=== PATIENT | female | born 1975 | race African-American/Black ===

== ENCOUNTER 2020-01-29 08:12 | Outpatient (CLI) | payer OTHER ==
--- NOTE | 2020-01-29 11:47 | NM ---
NUCLEAR MEDICINE PARATHYROID SCAN: HISTORY: Hyperparathyroidism. COMPARISON: None. TECHNIQUE: Patient was administered 23.7 mCi of technetium 99m sestamibi intravenously. SPECT and planar imaging is performed. FINDINGS: Appropriate distribution of the radiotracer. On the immediate and 1 hour images there is uptake noted in the salivary glands, paranasal sinuses and thyroid bed. On the 2 hour images, there is no significant radiotracer retention to suggest a parathyroid adenoma in the thyroid bed. IMPRESSION: No scintigraphic evidence of parathyroid adenoma. Transcribed Date/Time: 01/29/2020 12:14 PM
== END 2020-01-29 08:13 | disposition home or self-care (01) ==
LOC: NM 08:12
PROVIDERS: ATTEND Otolaryngology Plastic Surgery within the Head & Neck
DX: E21.3 Hyperparathyroidism, unspecified (principal)
CPT/HCPCS: 78072; A9500

== ENCOUNTER 2020-02-14 05:10 | Inpatient (IN) | payer OTHER ==
[2020-02-14] MEDS ORDERED: Lidocaine 1% w/Epinephrine 1:100K 20 ML VIAL ONE (06:32)
[2020-02-14 06:59] LABS: BHCG - Serum Negative (NEGATIVE); Pregs Control Background? CLEAR/WHITE (CLR/WHITE); Pregs Control Bar Appear? YES (CONTROL BAR)
[2020-02-14] MEDS ORDERED: Lidocaine 4% Topical Sol 50 ML BOT ONE (07:02)
[2020-02-14] MEDS ORDERED: Dexmedetomidine 200 MCG/2 ML VIAL ONE (07:02)
[2020-02-14] MEDS ORDERED: Fentanyl 100 MCG/2 ML VIAL ONE ×2 (07:02→09:57)
[2020-02-14 07:37] LABS: #Basophils 0.1 thou/uL (0.0-0.2); #Eosinphils 0.9 thou/uL (0.0-0.7); #Lymphocytes 3.2 thou/uL (1.20-3.40); #Monocytes 0.7 thou/uL (0.11-0.59); #Neutrophils 5.7 thou/uL (1.40-6.50); %Basophils 1.3 % (0.0-1.0); %Eosinophils 8.1 % (0.0-10.0); %Lymphocytes 30.1 % (21.0-51.0); %Monocytes 6.6 % (0.0-10.0); %Neutrophils 53.8 % (42.0-75.0); Hemoglobin 10.1 g/dL (12.0-16.0); Mean Corpuscular HGB CONC 32.1 g/dL (32.0-36.0); Mean Corpuscular Hemoglobin 30.7 pg (27.0-31.0); Mean Corpuscular Volume 95.9 fL (78.0-98.0); Mean Platelet Volume 6.8 fL (7.4-10.4); Platelet Count 417 thou/uL (130-400); RBC Distribution Width 14.6 % (11.5-14.5); Red Blood Cell (RBC) Count 3.27 mill/uL (4.20-5.40); White Blood Cell (WBC) Count 10.6 thou/uL (4.8-10.8)
[2020-02-14 07:45] LABS: Anion Gap 21 mmol/L (10-20); BUN (Urea Nitrogen) 58 mg/dL (7.0-18.7); Calc. Creatinine Clearance 8 mL/min (70-130); Calcium 8.6 mg/dL (7.8-10.44); Carbon Dioxide 24 mmol/L (22-29); Chloride 98 mmol/L (98-107); Estimated GFR-MDRD 5; Glucose 88 mg/dL (70-105); Potassium 4.6 mmol/L (3.5-5.1); Sodium 138 mmol/L (136-145)
[2020-02-14] MEDS ORDERED: SUGAMMADEX SODIUM 200 MG/2 ML VIAL ONE (08:10)
[2020-02-14] MEDS ORDERED: Promethazine HCl 25 MG/ML VIAL SLOW IVP PRN (09:17)
[2020-02-14] MEDS ORDERED: Promethazine HCl 25 MG/ML VIAL IM PRN (09:17)
[2020-02-14] MEDS ORDERED: Ondansetron HCl/PF 4 MG/2 ML Vial IVP PRN (09:17)
[2020-02-14] MEDS ORDERED: Albuterol Sulfate HFA (OR ONLY) ONE ×2 (09:27→10:35)
[2020-02-14] MEDS ORDERED: Promethazine HCl 25 MG/ML VIAL ONE (09:57)
[2020-02-14] MEDS ORDERED: Rocuronium Bromide 10 MG/ML (10ML VIAL) ONE (10:35)
[2020-02-14] MEDS ORDERED: Lidocaine 1% PF 5 ML VIAL ONE (10:35)
[2020-02-14] MEDS ORDERED: PROPOFOL 200 MG/20 ML VIAL ONE (10:35)
[2020-02-14] MEDS ORDERED: Ondansetron PF 4 MG/2 ML Vial ONE (10:35)
[2020-02-14] MEDS ORDERED: EPHEDRINE 25 MG/5 ML SYRINGE ONE (10:35)
[2020-02-14] MEDS ORDERED: Dexamethasone 20 MG/5 ML VIAL ONE (10:35)
[2020-02-14] MEDS ORDERED: Sodium Chloride 0.45% 1,000 ML IV SCH (11:45)
[2020-02-14] MEDS: HYDROcodone/Acetaminophen 5/325 mg Tablet PO PRN ×2 (12:28→18:18)
[2020-02-14] MEDS ORDERED: Morphine 2 MG/ML VIAL SLOW IVP PRN (12:47)
[2020-02-14] MEDS ORDERED: Acetaminophen 325 MG TAB PO PRN (13:11)
[2020-02-14] MEDS ORDERED: Labetalol HCl 100 MG/20 ML VIAL SLOW IVP PRN (13:17)
--- NOTE | 2020-02-14 13:24 | PDOC.HOSPP ---
- Subjective Encounter Date: 02/14/20 Encounter Time: 10:00 Subjective: Consult for medical management 44yo F w/ MHx of ESRD and tertiary hyperparathyroidism, HTN, and depression who presents for eleective hyperparathyroidectomy. Per at bedside, patient has been ESRD for 6 years due to poorly controlled HTN, and over the past few months has had significantly elevated calicum levels taht did not respond to medical therapy, so elected surgical intervention. The patient tolerated the pr ocedure well and was admitted for postoperative observation. On encounter, lying in bed and complains of moderate neck pain at the incision site. Denies chest pain, palpitations, dyspnea, abdominal pain, diarrhea dysuria, hematuria, focal weakness, difficulty eating or talking PMH: ESRD w/ tertiary hyperparathyroidism, HTN, depression PSH: POD 0 s/p hyperparathyroidectomy, fistula placement SH: lives with family, no alcohol, drugs, or smoking FH: cancer, HTN, diabetes, ESRD MED: reconciled All: NKDA - Objective Vital Signs & Weight: Vital Signs (12 hours) Temp Pulse Resp BP Pulse Ox 02/14/20 10:50 97.1 F L 61 16 171/89 H 100 Weight Weight 167 lb Result Diagrams: 02/14/20 07:39 02/14/20 06:42 Hospitalist ROS - Review of Systems Constitutional: denies: chills, sweats Respiratory: denies: cough, shortness of breath, hemoptysis, pleuritic pain Cardiovascular: denies: chest pain, palpitations, orthopnea, edema Gastrointestinal: denies: nausea, vomiting, abdominal pain, diarrhea Genitourinary: denies: dysuria, hematuria - Medication Medications: Active Medications Generic Name Dose Route Start Last Admin Trade Name Freq PRN Reason Stop Dose Admin Hydrocodone Bitart/Acetaminophen 2 tab 02/14/20 11:45 02/14/20 12:28 Hydrocodone/Acetaminophen 5/325 Mg Tablet PO 2 tab Q6H PRN Administration Severe Pain (7-10) Sodium Chloride 1,000 mls @ 100 mls/hr 02/14/20 11:45 02/14/20 12:48 1/2 Normal Saline IV Not Given .Q10H HETAL Morphine Sulfate 2 mg 02/14/20 12:47 02/14/20 13:02 Morphine 2 Mg/Ml Vial SLOW IVP 2 mg Q3H PRN Administration Breakthrough Pain - Exam General Appearance: awake alert General - other findings: mild distress due to pain Eye: PERRL, anicteric sclera ENT: normocephalic atraumatic, moist mucosa Neck - other findings: longitudinal incision with drain, serosanguionous fluid approx 20cc Heart: RRR, no murmur, no gallops, no rubs Heart - other findings: F upper arm fistula with palpable thrill Respiratory: CTAB, no wheezes, no rales, no ronchi Gastrointestinal: soft, non-tender, non-distended, normal bowel sounds Extremities: no edema Psychiatric: normal affect, normal behavior, A&O x 3 Hosp A/P - Plan #tertiary hyperparathyroidism s/p parathyroidectomy pain control as per surgery BMP, Ca, Ph, PTHi, vitamin D in AM #ESRD Last session on wednesday; no emergent indication nephrology consulted #HTN stopped home metoprolol for now; use titratable labetalol after surgery and prior to dialysis #depression resume home meds full code GI PPx: no Ix DVT PPx: SCDs
[2020-02-14] MEDS ORDERED: hydrALAZINE 20 MG/ML VIAL SLOW IVP PRN (14:12)
[2020-02-14] MEDS ORDERED: Losartan 25 MG TAB PO SCH (14:45)
--- NOTE | 2020-02-14 15:08 | EKG ---
Test Reason : PREOP Blood Pressure : / mmHG Vent. Rate : 076 BPM Atrial Rate : 076 BPM P-R Int : 130 ms QRS Dur : 076 ms QT Int : 442 ms P-R-T Axes : 034 042 -15 degrees QTc Int : 497 ms Normal sinus rhythm Nonspecific T wave abnormality Prolonged QT Abnormal ECG Confirmed by MARY BOTELLO ([id number]) on 02/14/2020 3:07:56 PM Referred By: LESA Confirmed By:MARY BOTELLO
[2020-02-14 15:20] VITALS: BMI 31.1
[2020-02-14] MEDS: Benzonatate 100 MG CAP PO PRN ×2 (16:19→20:57)
--- NOTE | 2020-02-14 16:40 | CON ---
DATE OF CONSULTATION: 02/14/2020 CONSULTING PHYSICIAN: Dr. Ernst Tolbert. REASON FOR CONSULTATION: End-stage renal disease evaluation and care. REASON FOR ADMISSION: Elective admission for parathyroidectomy. HISTORY OF PRESENT ILLNESS: This is a 44-year-old female with history of end-stage renal disease, hyperlipidemia, came to the hospital for parathyroidectomy and she was seen after that. She is due for dialysis today, but she is in lot of pain. She usually gets dialysis in [facility] and was sent over here for having parathyroidectomy by Dr. Jang. She had surgery. She denies any nausea, vomiting. No shortness of breath. No chest pain. No fever or chills. PAST MEDICAL HISTORY: Positive for; 1. End-stage renal disease, on hemodialysis. 2. Hyperparathyroidism. 3. Hyperphosphatemia. 4. Hyperlipidemia. PAST SURGICAL HISTORY: 1. Dialysis access surgery. 2. Parathyroidectomy. HOME MEDICATIONS: Reviewed. ALLERGIES: NO KNOWN DRUG ALLERGIES. SOCIAL HISTORY: No smoking, alcohol, or illicit drugs. FAMILY HISTORY: No history of kidney disease. REVIEW OF SYSTEMS: CONSTITUTIONAL: Negative for weight loss or gain, ability to conduct usual activities. SKIN: Negative for rash, itching. EYES: Negative for double vision, pain. ENT/MOUTH: Negative for nose bleeding, neck stiffness, pain, tenderness. CARDIOVASCULAR: Negative for palpitations, dyspnea on exertion, orthopnea. RESPIRATORY: Negative for shortness of breath, wheezing, cough, hemoptysis, fever or night sweats. GASTROINTESTINAL: Negative for poor appetite, abdominal pain, heartburn, nausea, vomiting, constipation, or diarrhea. GENITOURINARY: Negative for urgency, frequency, dysuria, nocturia. MUSCULOSKELETAL: Negative for pain, swelling. NEUROLOGIC/PSYCHIATRIC: Negative for anxiety, depression. ALLERGY/IMMUNOLOGIC: Negative for skin rash, bleeding tendency. PHYSICAL EXAMINATION: GENERAL: This is a well-built female, in [id number] distress after surgery. She is in lot of pain. VITAL SIGNS: Temperature 97, pulse 61, respiratory rate 16, blood pressure 171/89. HEENT: Atraumatic, normocephalic. Oral mucosa moist. NECK: Supple. CV: S1, S2 heard. Rate and rhythm regular. RESPIRATORY: Clear. GASTROINTESTINAL: Abdomen is soft. MUSCULOSKELETAL: No tenderness. No edema. DERMATOLOGIC: No skin rash. NEUROLOGIC: Alert and awake. PSYCHIATRIC: Normal mood and affect. LABORATORY DATA: Hemoglobin is 10.1. Potassium 4.6, BUN is 58, creatinine is 10.5, calcium is 8.6. ASSESSMENT AND PLAN: 1. End-stage renal disease, on hemodialysis. No acute indication for dialysis today. We will plan for dialysis tomorrow. The patient is in lot of pain and is very uneasy in the bed and does not think she can tolerate her full dialysis today. 2. Anemia of chronic disease. 3. Secondary/tertiary hyperparathyroidism, status post parathyroidectomy. Appreciate help from ENT. Agree with monitoring calcium, phosphorus level closely. Recheck for intact PTH in the morning. 4. Edema, controlled. 5. No acute indication for dialysis. We will plan for dialysis tomorrow due to her intense postoperative pain. We will continue to monitor and follow. Thank you for the consult. Job ID: [id number]
[2020-02-14] MEDS: Atorvastatin Calcium 40 MG TAB PO SCH (19:50)
[2020-02-14] MEDS: Ondansetron PF 4 MG/2 ML Vial IVP PRN (19:50)
[2020-02-14] MEDS: CEFAZOLIN 0.5 GM in Sodium Chloride 0.9% 100 ML IVPB SCH (19:50)
[2020-02-14] MEDS: Melatonin 3 MG TAB PO PRN (20:57)
[2020-02-14] MEDS ORDERED: Metoprolol Tartrate 100 MG TAB PO SCH (21:00)
[2020-02-15] MEDS: HYDROcodone/Acetaminophen 5/325 mg Tablet PO PRN ×3 (00:09→18:55)
[2020-02-15] MEDS: Benzonatate 100 MG CAP PO PRN ×3 (00:56→22:36)
[2020-02-15] MEDS: Ondansetron PF 4 MG/2 ML Vial IVP PRN (00:56)
[2020-02-15 05:26] LABS: #Basophils 0.1 thou/uL (0.0-0.2); #Eosinphils 0.2 thou/uL (0.0-0.7); #Lymphocytes 2.8 thou/uL (1.20-3.40); #Monocytes 0.7 thou/uL (0.11-0.59); #Neutrophils 8.8 thou/uL (1.40-6.50); %Basophils 0.7 % (0.0-1.0); %Eosinophils 1.6 % (0.0-10.0); %Lymphocytes 22.3 % (21.0-51.0); %Monocytes 5.2 % (0.0-10.0); %Neutrophils 70.2 % (42.0-75.0); Hemoglobin 10.1 g/dL (12.0-16.0); Mean Corpuscular HGB CONC 31.9 g/dL (32.0-36.0); Mean Corpuscular Volume 97.2 fL (78.0-98.0); Platelet Count 384 thou/uL (130-400); Red Blood Cell (RBC) Count 3.25 mill/uL (4.20-5.40); White Blood Cell (WBC) Count 12.5 thou/uL (4.8-10.8)
[2020-02-15 05:44] LABS: Phosphorus 4.3 mg/dL (2.3-4.7)
[2020-02-15 05:49] LABS: ALT (SGPT) 11 U/L (8-55); AST (SGOT) 9 U/L (5-34); Albumin 3.6 g/dL (3.5-5.0); Alkaline Phosphatase 190 U/L (40-110); Anion Gap 23 mmol/L (10-20); BUN (Urea Nitrogen) 68 mg/dL (7.0-18.7); Bilirubin, Total 0.4 mg/dL (0.2-1.2); Calc. Creatinine Clearance 7 mL/min (70-130); Calcium 6.6 mg/dL (7.8-10.44); Carbon Dioxide 20 mmol/L (22-29); Chloride 97 mmol/L (98-107); Estimated GFR-MDRD 4; Glucose 87 mg/dL (70-105); Potassium 4.5 mmol/L (3.5-5.1); Protein, Total 6.6 g/dL (6.0-8.3); Sodium 135 mmol/L (136-145)
[2020-02-15] MEDS: Folic Acid/Vit B Comp W-C PO SCH (08:58)
[2020-02-15] MEDS: Losartan 25 MG TAB PO SCH (08:58)
[2020-02-15] MEDS: Calcitriol 0.25 MCG CAP PO SCH (08:58)
[2020-02-15] MEDS: CEFAZOLIN 0.5 GM in Sodium Chloride 0.9% 100 ML IVPB SCH ×2 (08:59→12:07)
[2020-02-15] MEDS: Calcium Gluconate 4.6 MEQ in Sodium Chloride 0.9% 100 ML IVPB SCH ×2 (08:59→12:07)
[2020-02-15] MEDS ORDERED: Ondansetron ORAL SOLN. 4 MG/5 ML UDCUP PO PRN (12:16)
[2020-02-15] MEDS: Ondansetron ODT 4 MG TAB PO PRN ×2 (12:24→19:55)
--- NOTE | 2020-02-15 13:21 | PDOC.HOSPP ---
- Subjective Encounter Date: 02/15/20 Encounter Time: 09:00 Subjective: no overnight events. this morning, feeling overall worse, mainly has trouble breathing when standing up and pain at incision site. Educated patient and regarding hypocalcemia and resulting paresthesias and cramps, and currrent treatment - Objective Vital Signs & Weight: Vital Signs (12 hours) Temp Pulse Resp BP Pulse Ox 02/15/20 11:40 97.2 F L 79 18 157/92 H 100 02/15/20 07:09 98.3 F 75 20 171/97 H 100 02/15/20 03:45 98.0 F 72 16 162/92 H 100 Weight Weight 165 lb I&O: 02/14/20 02/15/20 02/16/20 06:59 06:59 06:59 Intake Total 1360 Output Total 200 Balance 1160 Result Diagrams: 02/15/20 05:12 02/15/20 05:12 Hospitalist ROS - Review of Systems Constitutional: denies: chills, sweats Respiratory: denies: cough, shortness of breath, SOB with excertion Cardiovascular: denies: chest pain, palpitations, orthopnea Gastrointestinal: denies: nausea, vomiting, abdominal pain, diarrhea Genitourinary: denies: dysuria, hematuria - Medication Medications: Active Medications Generic Name Dose Route Start Last Admin Trade Name Freq PRN Reason Stop Dose Admin Hydrocodone Bitart/Acetaminophen 2 tab 02/14/20 11:45 02/15/20 05:49 Hydrocodone/Acetaminophen 5/325 Mg Tablet PO 2 tab Q6H PRN Administration Severe Pain (7-10) Atorvastatin Calcium 40 mg 02/14/20 21:00 02/14/20 19:50 Atorvastatin Calcium 40 Mg Tab PO 40 mg HS HETAL Administration Benzonatate 100 mg 02/14/20 15:32 02/15/20 05:50 Benzonatate 100 Mg Cap PO 100 mg Q4H PRN Administration Cough Calcitriol 0.25 mcg 02/15/20 09:00 02/15/20 08:58 Calcitriol 0.25 Mcg Cap PO 0.25 mcg DAILY HETAL Administration Cefazolin Sodium 0.5 gm/ 100 mls @ 400 mls/hr 02/14/20 20:00 02/15/20 12:07 Sodium Chloride IVPB Not Given HETAL Losartan Potassium 50 mg 02/15/20 09:00 02/15/20 08:58 Losartan 25 Mg Tab PO 50 mg DAILY HETAL Administration Melatonin 3 mg 02/14/20 20:48 02/14/20 20:57 Melatonin 3 Mg Tab PO 3 mg HS PRN Administration Insomnia Morphine Sulfate 2 mg 02/14/20 12:47 02/14/20 13:02 Morphine 2 Mg/Ml Vial SLOW IVP 2 mg Q3H PRN Administration Breakthrough Pain Ondansetron HCl 4 mg 02/14/20 11:37 02/14/20 19:50 Ondansetron Pf 4 Mg/2 Ml Vial IVP 4 mg Q8H PRN Administration Nausea/Vomiting Ondansetron HCl 4 mg 02/15/20 12:22 02/15/20 12:24 Ondansetron Odt 4 Mg Tab PO 4 mg Q6H PRN Administration Nausea/Vomiting Sodium Chloride 10 ml 02/15/20 09:00 02/15/20 08:59 Flush - Normal Saline 10 Ml Syringe IVF 10 ml Q12HR HETAL Administration Vitamin B Complex/Vit C/Folic Acid 1 tab 02/15/20 09:00 02/15/20 08:58 Folic Acid/Vit B Comp W-C PO 1 tab DAILY HETAL Administration - Exam General Appearance: NAD, awake alert ENT: normocephalic atraumatic Neck: no JVD Neck - other findings: neck incision c/d/i; serosnaguinous ~ 10cc in bulb drain Heart: RRR, no murmur, no gallops, no rubs Respiratory: CTAB, no wheezes, no rales, no ronchi Respiratory - other findings: mild inspiratory bibasilar rales Gastrointestinal: soft, non-tender, non-distended, normal bowel sounds Extremities: 1+ LE edema Extremities - other findings: bilateral, pretibial Psychiatric: normal affect, normal behavior, A&O x 3 Hosp A/P - Plan #tertiary hyperparathyroidism; POD 1 s/p parathyroidectomy pain control as per surgery #hypocalcemia #hypovitaminosis D may be to hungry bone syndrome -supplement calcium -started calcitriol -stopped sevelamer #ESRD Last session on wednesday; Nephrology onboard #HTN restarted metoprolol, started losartan #depression resume home meds full code GI PPx: no Ix DVT PPx: SCDs
--- NOTE | 2020-02-15 13:40 | PRG ---
DATE OF SERVICE: 02/15/2020 SUBJECTIVE: Patient was seen and examined at bedside and overnight events noted. Patient denies any shortness of breath or chest pain or palpitation. No history of nausea or vomiting or diarrhea or fever or chills or cramps. OBJECTIVE: GENERAL: This is a well-built female, in no apparent distress. VITAL SIGNS: Temperature 98.3, pulse 75, respiratory rate 20, blood pressure 171/97. HEENT: Atraumatic, normocephalic. Oral mucosa is moist. NECK: Supple. CARDIOVASCULAR: S1, S2 heard. Rate and rhythm regular. RESPIRATORY: Clear to auscultation. GASTROINTESTINAL: Abdomen is soft. MUSCULOSKELETAL: No tenderness. No edema. DERMATOLOGIC: No skin rash. NEUROLOGIC: Alert and awake and oriented x3. No focal neurologic deficits. Moving all the extremities. PSYCHIATRIC: Mood and affect normal. LABORATORY DATA: Potassium is 4.5, BUN is 68, creatinine is 11.8, calcium is 6.6, phosphorus 4.3, albumin is 3.6, vitamin D 6.7, PTH 25.6. ASSESSMENT AND PLAN: 1. End-stage renal disease, on hemodialysis, status post parathyroidectomy tertiary hyperparathyroidism. Plan to have dialysis today. The patient complains of slight shortness of breath. 2. Hyponatremia. 3. Acidosis. 4. History of hyperphosphatemia, binders on hold now. 5. Hypocalcemia, status post parathyroidectomy. Monitor closely. Agree with IV calcium. We will add calcium with vitamin D. Agree with calcitriol for now. Monitor PTH also. 6. Edema, controlled. 7. History of hypertension. Plan to have dialysis today. Monitor calcium closely and replace. Job ID: [id number]
--- NOTE | 2020-02-15 14:34 | OP ---
DATE OF PROCEDURE: 02/14/2020 PREOPERATIVE DIAGNOSES: 1. Hyperparathyroidism. 2. Hypercalcemia. POSTOPERATIVE DIAGNOSIS: Secondary hyperparathyroidism. PROCEDURES PERFORMED: 1. Exploration of bilateral parathyroid and 3-1/2 gland parathyroidectomy. 2. Intraoperative laryngeal nerve monitoring. ESTIMATED BLOOD LOSS: Less than 10 mL. COMPLICATIONS: None. ANESTHESIA: GETA. DESCRIPTION OF PROCEDURE: The patient was taken to operating room, placed supine on the table. General endotracheal anesthesia was obtained by the Anesthesia staff using the intraoperative laryngeal nerve monitoring tube. Following this, the tube was secured in the midline of the upper lip. A shoulder roll was placed, and the nerve monitor was then turned on, remained on throughout the procedure. Following this, an incision was made through skin and subcutaneous tissue and was carried down to the platysmal layer. Subplatysmal flaps were elevated superiorly and inferiorly providing adequate exposure to the bilateral neck area. Following this, the strap muscles were in the midline and were retracted laterally. Dissection was carried immediately adjacent to the thyroid capsule. Following this, the inferior parathyroid glands were immediately identified as extremely large hypervascular parathyroid adenomas. Dissection was then turned towards identification and localization of the superior parathyroid glands bilaterally. The superior parathyroid glands were located just adjacent to the posterior aspect of the superior thyroid pole bilaterally. The left superior parathyroid gland was markedly enlarged with large vessels; however, was not as hypervascular as the bilateral inferior parathyroid glands were. The right superior parathyroid gland had a similar appearance, but was much smaller, yet still enlarged. A small piece of the right superior parathyroid gland was sent for frozen section analysis. The remaining three parathyroids, which included the left superior parathyroid gland and the bilateral inferior parathyroid glands were removed from the patient and sent for pathological analysis, confirming that the right superior parathyroid was intact and indeed parathyroid tissue, the majority of this fairly normal appearing gland was left intact. A silk stitch was placed on the biopsy side of the parathyroid gland for further identification if needed. Following this, wound was irrigated. Hemostasis was obtained. A drain was placed, and the wound was closed using 3-0 Monocryl stitches for the platysmal layers and subcuticular layers, and Dermabond was placed on the skin. The patient tolerated the procedure well. Job ID: [id number]
[2020-02-15] MEDS: Calcium Carbonate 600 MG + Vit D TAB PO SCH (17:20)
[2020-02-15 17:40] LABS: Hep B Surf Ag Non-Reactive S/CO (NonReactive)
[2020-02-15] MEDS: Cephalexin 250 MG CAP PO SCH (19:55)
[2020-02-15] MEDS: Melatonin 3 MG TAB PO PRN (19:55)
[2020-02-15] MEDS: Metoprolol Tartrate 50 MG TAB PO SCH (19:55)
[2020-02-15] MEDS: Atorvastatin Calcium 40 MG TAB PO SCH (19:56)
[2020-02-15] MEDS ORDERED: traMADol HCl 50 MG TAB PO PRN (23:22)
[2020-02-15] MEDS ORDERED: Cyclobenzaprine 10 MG TAB PO SCH (23:30)
[2020-02-16] MEDS: HYDROcodone/Acetaminophen 5/325 mg Tablet PO PRN ×2 (04:43→20:03)
[2020-02-16 05:05] LABS: #Basophils 0.1 thou/uL (0.0-0.2); #Eosinphils 0.5 thou/uL (0.0-0.7); #Lymphocytes 1.8 thou/uL (1.20-3.40); #Monocytes 0.4 thou/uL (0.11-0.59); #Neutrophils 4.8 thou/uL (1.40-6.50); %Basophils 0.7 % (0.0-1.0); %Lymphocytes 23.8 % (21.0-51.0); %Monocytes 5.2 % (0.0-10.0); %Neutrophils 63.4 % (42.0-75.0); Hemoglobin 10.5 g/dL (12.0-16.0); Mean Corpuscular HGB CONC 31.6 g/dL (32.0-36.0); Mean Corpuscular Hemoglobin 30.6 pg (27.0-31.0); Mean Corpuscular Volume 96.9 fL (78.0-98.0); Mean Platelet Volume 6.5 fL (7.4-10.4); Platelet Count 375 thou/uL (130-400); RBC Distribution Width 15.4 % (11.5-14.5); Red Blood Cell (RBC) Count 3.43 mill/uL (4.20-5.40); White Blood Cell (WBC) Count 7.6 thou/uL (4.8-10.8)
[2020-02-16 05:26] LABS: ALT (SGPT) 8 U/L (8-55); AST (SGOT) 18 U/L (5-34); Albumin 3.5 g/dL (3.5-5.0); Alkaline Phosphatase 210 U/L (40-110); Anion Gap 16 mmol/L (10-20); BUN (Urea Nitrogen) 42 mg/dL (7.0-18.7); Bilirubin, Total 0.4 mg/dL (0.2-1.2); Calc. Creatinine Clearance 10 mL/min (70-130); Calcium 6.3 mg/dL (7.8-10.44); Carbon Dioxide 26 mmol/L (22-29); Chloride 100 mmol/L (98-107); Estimated GFR-MDRD 6; Glucose 82 mg/dL (70-105); Phosphorus 4.3 mg/dL (2.3-4.7); Potassium 4.4 mmol/L (3.5-5.1); Protein, Total 6.5 g/dL (6.0-8.3); Sodium 138 mmol/L (136-145)
[2020-02-16] MEDS: Calcium Carbonate 600 MG + Vit D TAB PO SCH ×4 (08:58→20:03)
[2020-02-16] MEDS: Metoprolol Tartrate 50 MG TAB PO SCH ×2 (08:58→20:03)
[2020-02-16] MEDS: Folic Acid/Vit B Comp W-C PO SCH (08:58)
[2020-02-16] MEDS: Calcitriol 0.25 MCG CAP PO SCH (08:58)
[2020-02-16] MEDS: Cephalexin 250 MG CAP PO SCH (08:58)
[2020-02-16] MEDS: Losartan 25 MG TAB PO SCH (08:58)
[2020-02-16 09:01] LABS: Free Thyroxine Index 2.68 (1.4-3.1); T4 11.2 ug/dL (4.87-11.72); Thyroid Stimulating Hormone 1.5525 uIU/mL (0.35-4.94)
[2020-02-16] MEDS ORDERED: traMADol HCl 50 MG TAB PO PRN ×2 (09:54→10:52)
[2020-02-16] MEDS ORDERED: Calcium Gluconate 4.6 MEQ in Sodium Chloride 0.9% 100 ML IVPB SCH (10:00)
--- NOTE | 2020-02-16 11:01 | PDOC.HOSPP ---
- Subjective Encounter Date: 02/16/20 Encounter Time: 10:00 Subjective: Overnight, hemodialysis stopped midway due to hypotension per patient. This morning, complains of acaute on chronic bone pain that is worse than her usual, shortness of breath with exertion, and constipation (last bowel movement on wednesday). Otherwise no complaints. - Objective Vital Signs & Weight: Vital Signs (12 hours) Temp Pulse Resp BP BP Pulse Ox 02/16/20 07:26 98.1 F 76 16 111/68 100 02/16/20 03:17 97.8 F 73 20 143/83 H 96 02/15/20 23:42 98 F 73 24 H 162/92 H 100 Weight Weight 165 lb I&O: 02/15/20 02/16/20 02/17/20 06:59 06:59 06:59 Intake Total 1360 1420 Output Total 200 Balance 1160 1420 Result Diagrams: 02/16/20 04:54 02/16/20 04:54 Hospitalist ROS - Review of Systems Constitutional: denies: chills, sweats Respiratory: reports: SOB with excertion. denies: cough, shortness of breath, pleuritic pain Cardiovascular: denies: chest pain, palpitations, orthopnea, paroxysmal noc. dyspnea Gastrointestinal: reports: constipation. denies: nausea, vomiting, abdominal pain, diarrhea Genitourinary: denies: dysuria, hematuria Musculoskeletal: reports: other (diffuse bone pain) - Medication Medications: Active Medications Generic Name Dose Route Start Last Admin Trade Name Freq PRN Reason Stop Dose Admin Hydrocodone Bitart/Acetaminophen 2 tab 02/14/20 11:45 02/16/20 04:43 Hydrocodone/Acetaminophen 5/325 Mg Tablet PO 2 tab Q6H PRN Administration Severe Pain (7-10) Atorvastatin Calcium 40 mg 02/14/20 21:00 02/15/20 19:56 Atorvastatin Calcium 40 Mg Tab PO 40 mg HS HETAL Administration Benzonatate 100 mg 02/14/20 15:32 02/15/20 22:36 Benzonatate 100 Mg Cap PO 100 mg Q4H PRN Administration Cough Calcitriol 0.25 mcg 02/15/20 09:00 02/16/20 08:58 Calcitriol 0.25 Mcg Cap PO 0.25 mcg DAILY HETAL Administration Cephalexin 500 mg 02/15/20 21:00 02/16/20 08:58 Cephalexin 250 Mg Cap PO 500 mg BID HETAL Administration Losartan Potassium 50 mg 02/15/20 09:00 02/16/20 08:58 Losartan 25 Mg Tab PO 50 mg DAILY HETAL Administration Melatonin 3 mg 02/14/20 20:48 02/15/20 19:55 Melatonin 3 Mg Tab PO 3 mg HS PRN Administration Insomnia Metoprolol Tartrate 50 mg 02/15/20 21:00 02/16/20 08:58 Metoprolol Tartrate 50 Mg Tab PO 50 mg BID HETAL Administration Ondansetron HCl 4 mg 02/14/20 11:37 02/14/20 19:50 Ondansetron Pf 4 Mg/2 Ml Vial IVP 4 mg Q8H PRN Administration Nausea/Vomiting Ondansetron HCl 4 mg 02/15/20 12:22 02/15/20 19:55 Ondansetron Odt 4 Mg Tab PO 4 mg Q6H PRN Administration Nausea/Vomiting Sodium Chloride 10 ml 02/15/20 09:00 02/16/20 09:02 Flush - Normal Saline 10 Ml Syringe IVF Not Given Q12HR HETAL Vitamin B Complex/Vit C/Folic Acid 1 tab 02/15/20 09:00 02/16/20 08:58 Folic Acid/Vit B Comp W-C PO 1 tab DAILY HETAL Administration - Exam General Appearance: awake alert General - other findings: in moderate distress due to bone pain ENT: normocephalic atraumatic, moist mucosa Neck - other findings: neck incision c/d/i Heart: RRR, no murmur, no gallops, no rubs Respiratory: CTAB, no wheezes, no rales, no ronchi Gastrointestinal: soft, non-tender, non-distended, normal bowel sounds Extremities: no edema Musculoskeletal: normal tone, normal strength Musculoskeletal - other findings: diffuse tenderness on deep palpation Psychiatric: normal affect, normal behavior, A&O x 3 Hosp A/P - Plan #tertiary hyperparathyroidism; POD 2 s/p parathyroidectomy complains of diffuse bone pain; base on EMR, hasn't been taking pain medications consistently changed tramadol to scheduled continue norco PRN breakthrough pain surgery onboard #hypocalcemia #hypovitaminosis D may be to hungry bone syndrome -increased calcium carbonate to TID -continue calcitriol -continue to follow CMP daily #constipation last bowel movement on Wednesday started senna, doc scheduled; bisacodyl MT once, then PRN #ESRD HD yesterday held midway due to hypotension per patient nephrology onboard #HTN restarted metoprolol, reduced losartan to 25mg PO daily #depression resume home meds full code GI PPx: no Ix DVT PPx: lovenox
[2020-02-16] MEDS ORDERED: Bisacodyl 10 MG SUPP PR PRN (11:07)
[2020-02-16] MEDS ORDERED: Bisacodyl 10 MG SUPP PR SCH (11:15)
[2020-02-16] MEDS ORDERED: Calcium Carbonate 600 MG + Vit D TAB PO SCH (12:00)
[2020-02-16] MEDS ORDERED: traMADol HCl 50 MG TAB PO SCH (12:00)
--- NOTE | 2020-02-16 12:14 | PRG ---
DATE OF SERVICE: 02/16/2020 SUBJECTIVE: Patient was seen and examined at bedside and overnight events noted. Patient denies any shortness of breath or chest pain or palpitation. No history of nausea or vomiting or diarrhea or fever or chills or cramps. OBJECTIVE: GENERAL: This is a well-built female, in no apparent distress. VITAL SIGNS: Temperature 98.1. Heart rate 73. Respiratory rate 16. Blood pressure 111/60. HEENT: Atraumatic, normocephalic. Oral mucosa is moist. NECK: Supple. CARDIOVASCULAR: S1, S2 heard. Rate and rhythm regular. RESPIRATORY: Clear to auscultation. GASTROINTESTINAL: Abdomen is soft. MUSCULOSKELETAL: No tenderness. No edema. DERMATOLOGIC: No skin rash. NEUROLOGIC: Alert and awake and oriented x3. No focal neurologic deficits. Moving all the extremities. PSYCHIATRIC: Mood and affect normal. LABORATORY DATA: Potassium 4.4, BUN is 42, and creatinine 8.7. ASSESSMENT AND PLAN: 1. End-stage renal disease, on hemodialysis. We will continue on dialysis today. 2. Fluid overload. Remove fluid. 3. History of hyperphosphatemia. Monitor phosphorus. 4. Hypocalcemia. We will increase calcium supplements, on calcitriol. 5. History of hyperparathyroidism, status post parathyroidectomy. 6. Edema. 7. History of hypertension. We will follow. Plan to have dialysis today. Increase calcium supplements. Job ID: [id number]
[2020-02-16] MEDS: traMADol HCl 50 MG TAB PO SCH ×3 (12:22→23:14)
[2020-02-16] MEDS: Atorvastatin Calcium 40 MG TAB PO SCH (20:03)
[2020-02-16] MEDS: Senokot S 8.6-50 MG TAB PO SCH (20:03)
[2020-02-16] MEDS: Melatonin 3 MG TAB PO PRN (23:14)
[2020-02-16] MEDS: Benzonatate 100 MG CAP PO PRN (23:14)
[2020-02-17] MEDS: Ondansetron ODT 4 MG TAB PO PRN (04:34)
[2020-02-17] MEDS: traMADol HCl 50 MG TAB PO SCH ×4 (05:02→23:07)
[2020-02-17] MEDS: Calcitriol 0.25 MCG CAP PO SCH (08:40)
[2020-02-17] MEDS: Calcium Carbonate 600 MG + Vit D TAB PO SCH ×2 (08:41→11:32)
[2020-02-17] MEDS: Losartan 25 MG TAB PO SCH (08:41)
[2020-02-17] MEDS: Folic Acid/Vit B Comp W-C PO SCH (08:41)
[2020-02-17] MEDS: Metoprolol Tartrate 50 MG TAB PO SCH ×2 (08:41→21:06)
[2020-02-17] MEDS: Senokot S 8.6-50 MG TAB PO SCH ×2 (08:42→21:06)
[2020-02-17] MEDS ORDERED: Metoprolol Tartrate 5 MG/5 ML VIAL IVP PRN (09:53)
[2020-02-17 10:38] LABS: #Eosinphils 0.9 thou/uL (0.0-0.7); #Lymphocytes 1.6 thou/uL (1.20-3.40); #Monocytes 0.4 thou/uL (0.11-0.59); #Neutrophils 4.2 thou/uL (1.40-6.50); %Basophils 0.6 % (0.0-1.0); %Eosinophils 12.5 % (0.0-10.0); %Lymphocytes 22.4 % (21.0-51.0); %Neutrophils 58.5 % (42.0-75.0); Hemoglobin 11.7 g/dL (12.0-16.0); Mean Corpuscular HGB CONC 31.7 g/dL (32.0-36.0); Mean Corpuscular Volume 97.8 fL (78.0-98.0); Mean Platelet Volume 6.5 fL (7.4-10.4); Platelet Count 314 thou/uL (130-400); RBC Distribution Width 15.3 % (11.5-14.5); Red Blood Cell (RBC) Count 3.79 mill/uL (4.20-5.40); White Blood Cell (WBC) Count 7.1 thou/uL (4.8-10.8)
[2020-02-17 11:08] LABS: ALT (SGPT) Less than 7 U/L (8-55); AST (SGOT) 13 U/L (5-34); Albumin 3.8 g/dL (3.5-5.0); Alkaline Phosphatase 240 U/L (40-110); Anion Gap 20 mmol/L (10-20); BUN (Urea Nitrogen) 30 mg/dL (7.0-18.7); Bilirubin, Total 0.4 mg/dL (0.2-1.2); Calc. Creatinine Clearance 12 mL/min (70-130); Calcium 6.4 mg/dL (7.8-10.44); Carbon Dioxide 23 mmol/L (22-29); Chloride 99 mmol/L (98-107); Estimated GFR-MDRD 8; Globulin 3.4 g/dL (2.4-3.5); Glucose 98 mg/dL (70-105); Phosphorus 3.7 mg/dL (2.3-4.7); Potassium 3.8 mmol/L (3.5-5.1); Protein, Total 7.2 g/dL (6.0-8.3); Sodium 138 mmol/L (136-145)
[2020-02-17] MEDS: cloNIDine 0.1 MG TAB PO PRN ×2 (11:32→21:05)
[2020-02-17] MEDS: HYDROcodone/Acetaminophen 5/325 mg Tablet PO PRN ×3 (11:33→23:07)
--- NOTE | 2020-02-17 11:53 | PRG ---
DATE OF SERVICE: SUBJECTIVE: Patient was seen and examined at bedside and overnight events noted. Patient denies any shortness of breath or chest pain or palpitation. No history of nausea or vomiting or diarrhea or fever or chills or cramps. OBJECTIVE: GENERAL: This is a well-built female, in no apparent distress. VITAL SIGNS: Temperature 97.9, pulse 79, respiratory rate 18, blood pressure 170/88. HEENT: Atraumatic, normocephalic. Oral mucosa is moist. NECK: Supple. CARDIOVASCULAR: S1, S2 heard. Rate and rhythm regular. RESPIRATORY: Clear to auscultation. GASTROINTESTINAL: Abdomen is soft. MUSCULOSKELETAL: No tenderness. No edema. DERMATOLOGIC: No skin rash. NEUROLOGIC: Alert and awake and oriented x3. No focal neurologic deficits. Moving all the extremities. PSYCHIATRIC: Mood and affect normal. LABORATORY DATA: Potassium 3.8, BUN is 38, and creatinine is 7.03. ASSESSMENT AND PLAN: 1. End-stage renal disease. Continue on hemodialysis on Wednesday, Wednesday, and Wednesday. 2. Tertiary hyperparathyroidism, status post parathyroidectomy. 3. Hungry bone syndrome with hypocalcemia and hypophosphatemia. We will increase calcium supplements to 1 g p.o. q.i.d. as tolerated. 4. Monitor calcium level closely. 5. Edema, controlled. 6. History of hypertension. Plan to continue dialysis on Wednesday, Wednesday, and Wednesday. We will increase calcium supplements. Job ID: [id number]
--- NOTE | 2020-02-17 12:45 | PDOC.HOSPP ---
- Subjective Encounter Date: 02/17/20 Encounter Time: 10:30 Subjective: Patient is resting. She has no acute complaints. She is able to eat without much difficulty. She is on soft diet. Fiber restricted. - Objective Vital Signs & Weight: Vital Signs (12 hours) Temp Pulse Resp BP BP BP Pulse Ox 02/17/20 11:32 174/105 H 02/17/20 09:31 170/88 H 02/17/20 07:13 97.9 F 79 18 170/88 H 94 L 02/17/20 04:14 98.6 F 77 18 169/104 H 97 Weight Weight 165 lb I&O: 02/16/20 02/17/20 02/18/20 06:59 06:59 06:59 Intake Total 1420 480 Balance 1420 480 Result Diagrams: 02/17/20 10:23 02/17/20 10:23 Hospitalist ROS - Medication Medications: Active Medications Generic Name Dose Route Start Last Admin Trade Name Freq PRN Reason Stop Dose Admin Hydrocodone Bitart/Acetaminophen 1 tab 02/14/20 11:45 02/17/20 11:33 Hydrocodone/Acetaminophen 5/325 Mg Tablet PO 1 tab Q6H PRN Administration Moderate Pain (4-6) Hydrocodone Bitart/Acetaminophen 2 tab 02/14/20 11:45 02/16/20 20:03 Hydrocodone/Acetaminophen 5/325 Mg Tablet PO 2 tab Q6H PRN Administration Severe Pain (7-10) Atorvastatin Calcium 40 mg 02/14/20 21:00 02/16/20 20:03 Atorvastatin Calcium 40 Mg Tab PO 40 mg HS HETAL Administration Benzonatate 100 mg 02/14/20 15:32 02/16/20 23:14 Benzonatate 100 Mg Cap PO 100 mg Q4H PRN Administration Cough Calcitriol 0.25 mcg 02/15/20 09:00 02/17/20 08:40 Calcitriol 0.25 Mcg Cap PO 0.25 mcg DAILY HETAL Administration Clonidine 0.1 mg 02/17/20 09:53 02/17/20 11:32 Clonidine 0.1 Mg Tab PO 0.1 mg Q6H PRN Administration Blood Pressure Losartan Potassium 25 mg 02/17/20 09:00 02/17/20 08:41 Losartan 25 Mg Tab PO 25 mg DAILY HETAL Administration Melatonin 3 mg 02/14/20 20:48 02/16/20 23:14 Melatonin 3 Mg Tab PO 3 mg HS PRN Administration Insomnia Metoprolol Tartrate 50 mg 02/15/20 21:00 02/17/20 08:41 Metoprolol Tartrate 50 Mg Tab PO 50 mg BID HETAL Administration Ondansetron HCl 4 mg 02/14/20 11:37 02/14/20 19:50 Ondansetron Pf 4 Mg/2 Ml Vial IVP 4 mg Q8H PRN Administration Nausea/Vomiting Ondansetron HCl 4 mg 02/15/20 12:22 02/17/20 04:34 Ondansetron Odt 4 Mg Tab PO 4 mg Q6H PRN Administration Nausea/Vomiting Senna/Docusate Sodium 1 tab 02/16/20 21:00 02/17/20 08:42 Senokot S 8.6-50 Mg Tab PO Not Given BID HETAL Sodium Chloride 10 ml 02/15/20 09:00 02/17/20 08:51 Flush - Normal Saline 10 Ml Syringe IVF Not Given Q12HR HETAL Tramadol HCl 50 mg 02/16/20 12:00 02/17/20 11:32 Tramadol Hcl 50 Mg Tab PO 50 mg Q6HR HETAL Administration Vitamin B Complex/Vit C/Folic Acid 1 tab 02/15/20 09:00 02/17/20 08:41 Folic Acid/Vit B Comp W-C PO 1 tab DAILY HETAL Administration - Exam General - other findings: Neck looks good. It is swollen mildly tender expected postoperative day 3 Eye: PERRL ENT: normocephalic atraumatic Neck: symmetric Neck - other findings: Neck looks good. It is swollen mildly tender expected postoperative day 3 Heart: RRR Respiratory: CTAB, normal chest expansion Gastrointestinal: soft, normal bowel sounds Psychiatric: A&O x 3 Hosp A/P - Plan #tertiary hyperparathyroidism; POD 2 s/p parathyroidectomy complains of diffuse bone pain; base on EMR, hasn't been taking pain medications consistently changed tramadol to scheduled continue norco PRN breakthrough pain surgery onboard #hypocalcemia-------------> corrected calcium 6.6.--- He is in the range of 6.3- 6.6. 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 -increased calcium carbonate to TID -continue calcitriol #constipation last bowel movement on Wednesday started senna doc scheduled; bisacodyl [place] once, then PRN #ESRD HD yesterday held midway due to hypotension per patient nephrology onboard #HTN restarted metoprolol, reduced losartan to 25mg PO daily And soft diet- restricted on fibers.
[2020-02-17] MEDS: Calcium Carbonate 500 MG ChewTAB PO SCH ×3 (13:50→21:06)
[2020-02-17] MEDS: Melatonin 3 MG TAB PO PRN (21:06)
[2020-02-17] MEDS: Atorvastatin Calcium 40 MG TAB PO SCH (21:06)
[2020-02-18] MEDS: Ondansetron ODT 4 MG TAB PO PRN (01:18)
[2020-02-18] MEDS: traMADol HCl 50 MG TAB PO SCH ×4 (05:23→23:50)
[2020-02-18] MEDS: HYDROcodone/Acetaminophen 5/325 mg Tablet PO PRN ×3 (05:38→20:50)
[2020-02-18 05:48] LABS: #Basophils 0.1 thou/uL (0.0-0.2); #Eosinphils 1.1 thou/uL (0.0-0.7); #Lymphocytes 2.3 thou/uL (1.20-3.40); #Monocytes 0.5 thou/uL (0.11-0.59); #Neutrophils 4.2 thou/uL (1.40-6.50); %Basophils 0.7 % (0.0-1.0); %Lymphocytes 28.5 % (21.0-51.0); %Monocytes 5.7 % (0.0-10.0); Hemoglobin 10.3 g/dL (12.0-16.0); Mean Corpuscular Hemoglobin 30.9 pg (27.0-31.0); Mean Corpuscular Volume 96.7 fL (78.0-98.0); Mean Platelet Volume 6.7 fL (7.4-10.4); Platelet Count 363 thou/uL (130-400); RBC Distribution Width 15.1 % (11.5-14.5); Red Blood Cell (RBC) Count 3.32 mill/uL (4.20-5.40); White Blood Cell (WBC) Count 8.1 thou/uL (4.8-10.8)
[2020-02-18 06:15] LABS: ALT (SGPT) Less than 7 U/L (8-55); AST (SGOT) 13 U/L (5-34); Albumin 3.7 g/dL (3.5-5.0); Alkaline Phosphatase 249 U/L (40-110); Anion Gap 18 mmol/L (10-20); BUN (Urea Nitrogen) 42 mg/dL (7.0-18.7); Bilirubin, Total 0.4 mg/dL (0.2-1.2); Calc. Creatinine Clearance 10 mL/min (70-130); Calcium 5.7 mg/dL (7.8-10.44); Carbon Dioxide 23 mmol/L (22-29); Chloride 99 mmol/L (98-107); Estimated GFR-MDRD 6; Globulin 3.2 g/dL (2.4-3.5); Glucose 90 mg/dL (70-105); Magnesium 2.1 mg/dL (1.6-2.6); Phosphorus 4.7 mg/dL (2.3-4.7); Potassium 4.3 mmol/L (3.5-5.1); Protein, Total 6.9 g/dL (6.0-8.3); Sodium 136 mmol/L (136-145)
[2020-02-18] MEDS: Calcium Gluc 4.6 MEQ/10 ML (100 MG/ML) SLOW IVP SCH (08:50)
[2020-02-18] MEDS: Calcium Carbonate 500 MG ChewTAB PO SCH ×4 (08:51→20:42)
[2020-02-18] MEDS: Calcitriol 0.25 MCG CAP PO SCH (08:51)
[2020-02-18] MEDS: Losartan 25 MG TAB PO SCH (08:51)
[2020-02-18] MEDS: Folic Acid/Vit B Comp W-C PO SCH (08:51)
[2020-02-18] MEDS: Senokot S 8.6-50 MG TAB PO SCH ×2 (08:51→20:43)
[2020-02-18] MEDS: Metoprolol Tartrate 50 MG TAB PO SCH ×2 (08:52→20:42)
[2020-02-18] MEDS: Ondansetron PF 4 MG/2 ML Vial IVP PRN ×2 (09:00→17:45)
--- NOTE | 2020-02-18 10:44 | RAD ---
CHEST 1 VIEW: HISTORY: Central line placement. FINDINGS: Heart size is enlarged. Right-sided central line is present. The catheter tip overlies the right at rium. No pneumothorax identified. IMPRESSION: 1. Cardiomegaly. 2. Right-sided central line. No signs of pneumothorax. POS: OFF
--- NOTE | 2020-02-18 12:45 | PDOC.HOSPP ---
- Subjective Encounter Date: 02/18/20 Encounter Time: 10:10 Subjective: Patient is doing well. Due to lack of IV access right IJ has been placed this morning for continued calcium supplement. Her calcium this morning critically low at 5.7. Her blood pressure is elevated. But patient is refusing to take take the meds today. - Objective Vital Signs & Weight: Vital Signs (12 hours) Temp Pulse Resp BP BP Pulse Ox 02/18/20 11:00 98.4 F 71 18 180/110 H 96 02/18/20 10:26 180/110 H 02/18/20 07:28 98.2 F 73 18 150/90 H 93 L 02/18/20 05:00 98.4 F 71 16 167/111 H 100 02/18/20 01:08 80 18 130/84 96 Weight Weight 165 lb I&O: 02/17/20 02/18/20 02/19/20 06:59 06:59 06:59 Intake Total 480 1100 Balance 480 1100 Result Diagrams: 02/18/20 05:37 02/18/20 05:37 Hospitalist ROS - Medication Medications: Active Medications Generic Name Dose Route Start Last Admin Trade Name Freq PRN Reason Stop Dose Admin Hydrocodone Bitart/Acetaminophen 1 tab 02/14/20 11:45 02/18/20 10:23 Hydrocodone/Acetaminophen 5/325 Mg Tablet PO 1 tab Q6H PRN Administration Moderate Pain (4-6) Hydrocodone Bitart/Acetaminophen 2 tab 02/14/20 11:45 02/17/20 23:07 Hydrocodone/Acetaminophen 5/325 Mg Tablet PO 2 tab Q6H PRN Administration Severe Pain (7-10) Atorvastatin Calcium 40 mg 02/14/20 21:00 02/17/20 21:06 Atorvastatin Calcium 40 Mg Tab PO 40 mg HS HETAL Administration Benzonatate 100 mg 02/14/20 15:32 02/16/20 23:14 Benzonatate 100 Mg Cap PO 100 mg Q4H PRN Administration Cough Calcitriol 0.25 mcg 02/15/20 09:00 02/18/20 08:51 Calcitriol 0.25 Mcg Cap PO 0.25 mcg DAILY HETAL Administration Calcium Carbonate 1,000 mg 02/17/20 13:00 02/18/20 08:51 Calcium Carbonate 500 Mg Chewtab PO 1,000 mg QID HETAL Administration Clonidine 0.1 mg 02/17/20 09:53 02/17/20 21:05 Clonidine 0.1 Mg Tab PO 0.1 mg Q6H PRN Administration Blood Pressure Losartan Potassium 25 mg 02/17/20 09:00 02/18/20 08:51 Losartan 25 Mg Tab PO 25 mg DAILY HETAL Administration Melatonin 3 mg 02/14/20 20:48 02/17/20 21:06 Melatonin 3 Mg Tab PO 3 mg HS PRN Administration Insomnia Metoprolol Tartrate 50 mg 02/15/20 21:00 02/18/20 08:52 Metoprolol Tartrate 50 Mg Tab PO 50 mg BID HETAL Administration Ondansetron HCl 4 mg 02/14/20 11:37 02/18/20 09:00 Ondansetron Pf 4 Mg/2 Ml Vial IVP 4 mg Q8H PRN Administration Nausea/Vomiting Ondansetron HCl 4 mg 02/15/20 12:22 02/18/20 01:18 Ondansetron Odt 4 Mg Tab PO 4 mg Q6H PRN Administration Nausea/Vomiting Senna/Docusate Sodium 1 tab 02/16/20 21:00 02/18/20 08:51 Senokot S 8.6-50 Mg Tab PO 1 tab BID HETAL Administration Sodium Chloride 10 ml 02/15/20 09:00 02/18/20 08:52 Flush - Normal Saline 10 Ml Syringe IVF 10 ml Q12HR HETAL Administration Tramadol HCl 50 mg 02/16/20 12:00 02/18/20 05:23 Tramadol Hcl 50 Mg Tab PO 50 mg Q6HR HETAL Administration Vitamin B Complex/Vit C/Folic Acid 1 tab 02/15/20 09:00 02/18/20 08:51 Folic Acid/Vit B Comp W-C PO 1 tab DAILY HETAL Administration - Exam General Appearance: NAD, awake alert Eye: PERRL ENT: normocephalic atraumatic Neck: supple Heart: RRR Respiratory: CTAB, normal chest expansion Gastrointestinal: soft, normal bowel sounds Neurological: no focal deficits Psychiatric: A&O x 3 Hosp A/P - Plan #tertiary hyperparathyroidism; POD 2 s/p parathyroidectomy complains of diffuse bone pain; base on EMR, hasn't been taking pain medications consistently changed tramadol to scheduled continue norco PRN breakthrough pain surgery onboard #hypocalcemia-------------> corrected calcium 6.6.--- He is in the range of 6.3- 6.6. 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 -increased calcium carbonate to TID -continue calcitriol #constipation last bowel movement on Wednesday started senna, doc scheduled; bisacodyl [place] once, then PRN #ESRD HD yesterday held midway due to hypotension per patient nephrology onboard #HTN restarted metoprolol, reduced losartan to 25mg PO daily And soft diet- restricted on fibers. 4th Hypocalcemia due to lack of IV access right IJ has been placed this morning for continued calcium supplement. Her calcium this morning critically low at 5.7. -We will supplement IV calcium gluconate in addition to have p.o. until calcium is close to low normal range. Her vitamin D level is also in the low normal range.--On calcitriol 0.25 micrograms a day Adding vitamin D3 50,000 unit weekly dose until her level is in the normal range. Currently it is around 6 and it is very low and calcitriol is not enough at this point. Also checking her mag level. Her blood pressure is elevated. But patient is refusing to take take the meds today. Norvasc 5 twice a day added as well as clonidine as needed.
[2020-02-18] MEDS ORDERED: Calcium Gluc 4.6 MEQ/10 ML (100 MG/ML) SLOW IVP SCH ×3 (12:46→18:00)
[2020-02-18] MEDS ORDERED: Ergocalciferol 1.25 MG(50,000 UNITS) CAP PO SCH (14:00)
--- NOTE | 2020-02-18 15:34 | OP ---
DATE OF PROCEDURE: 02/18/2020 PREOPERATIVE DIAGNOSIS: Severe hypocalcemia after parathyroid surgery with no IV access. PROCEDURE PERFORMED: Central line placement. INDICATIONS: This is a 44-year-old diabetic, end-stage renal patient who developed tertiary hyperparathyroidism. She underwent a parathyroidectomy on Wednesday and has developed severe hypocalcemia. Multiple people have tried to establish IV access without success, became an emergent situation. FINDINGS: She has a dialysis graft in the left arm. She has very poor femoral pulses. She has a fresh scar across her neck. Attempts at placement in the right femoral vein were unsuccessful, required placement in the right subclavian vein. DESCRIPTION OF PROCEDURE: On an urgent basis, the patient was placed supine. Her groin area was prepped and draped in usual fashion. Local anesthesia was infiltrated subcutaneously, and a very, very faint thready pulse was identified. An introducer needle was inserted. I got an arterial stick. Direct pressure was held. Although I could occasionally get venous flow, I could not get the wire to thread. Eventually, she developed some hematoma there, and I had to abort that location. I held pressure for 5 minutes. I then moved to the right subclavian area, the chest was prepped and draped in usual fashion. She was placed in Trendelenburg position. Local anesthesia was infiltrated subcutaneously. An introducer needle was inserted to right subclavian with good backflow of venous blood. A J-wire threaded easily. The skin was incised with an 11 blade. The pre-flushed triple-lumen catheter inserted over the wire, and the wire was removed. Each of the ports aspirated. Good backflow of venous blood. Catheter was sutured in place with 3-0 nylon suture. A sterile bandage applied. The patient tolerated the procedure well. Chest x-ray obtained. Job ID: [id number]
[2020-02-18] MEDS: Atorvastatin Calcium 40 MG TAB PO SCH (20:42)
[2020-02-18] MEDS: Amlodipine 5 MG TAB PO SCH (20:42)
--- NOTE | 2020-02-18 21:05 | PRG ---
DATE OF SERVICE: 02/18/2020 SUBJECTIVE: Patient was seen and examined at bedside and overnight events noted. Patient denies any shortness of breath or chest pain or palpitation. No history of nausea or vomiting or diarrhea or fever or chills or cramps. OBJECTIVE: GENERAL: This is a well-built female, in no apparent distress. VITAL SIGNS: Temperature 98.4, pulse 71, respiratory rate 18, blood pressure Musculoskeletal : No tenderness, No edema HEENT: Atraumatic normocephalic Neck: Supple Cardiovascular: S1S2 heard, Rate and rhythm regular Respiratory: Clear to auscultation Gastrointestinal: Abdomen is soft Dermatologic : No skin rash Neurologic: Alert and awake and oriented X3 No focal neurologic deficits. Moving all the extremities. Psychiatric: Mood and affect normal LABORATORY DATA: Potassium 4.3, calcium 5.7. Creatinine 9.0. ASSESSMENT AND PLAN: 1. End-stage renal disease. Continue dialysis Wednesday, Wednesday, and Wednesday. 2. Tertiary hyperparathyroidism, status post parathyroidectomy. 3. 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 We agree with IV calcium. We will give another dose this afternoon, to continue on oral calcium supplements. 4. Vitamin D deficiency. Continue on vitamin D. Currently, on calcitriol. 5. History of hypertension. 6. Edema, controlled. 7. Supplement calcium. Monitor calcium, magnesium, and phosphorus. Magnesium level stable. Phosphorus level stable. We will replace calcium. We will follow. Job ID: [id number] MTDD
[2020-02-19] MEDS: Benzonatate 100 MG CAP PO PRN ×2 (02:32→08:21)
[2020-02-19] MEDS: traMADol HCl 50 MG TAB PO SCH ×3 (05:05→22:00)
[2020-02-19 06:56] LABS: #Basophils 0.1 thou/uL (0.0-0.2); #Eosinphils 1.2 thou/uL (0.0-0.7); #Lymphocytes 2.3 thou/uL (1.20-3.40); #Monocytes 0.5 thou/uL (0.11-0.59); #Neutrophils 5.1 thou/uL (1.40-6.50); %Basophils 0.9 % (0.0-1.0); %Eosinophils 13.1 % (0.0-10.0); %Lymphocytes 24.7 % (21.0-51.0); %Monocytes 5.8 % (0.0-10.0); %Neutrophils 55.5 % (42.0-75.0); Hemoglobin 9.1 g/dL (12.0-16.0); Mean Corpuscular HGB CONC 31.7 g/dL (32.0-36.0); Mean Corpuscular Volume 94.8 fL (78.0-98.0); Mean Platelet Volume 6.8 fL (7.4-10.4); Platelet Count 320 thou/uL (130-400); RBC Distribution Width 14.5 % (11.5-14.5); Red Blood Cell (RBC) Count 3.01 mill/uL (4.20-5.40); White Blood Cell (WBC) Count 9.2 thou/uL (4.8-10.8)
[2020-02-19 07:16] LABS: ALT (SGPT) Less than 7 U/L (8-55); AST (SGOT) 12 U/L (5-34); Albumin 3.4 g/dL (3.5-5.0); Alkaline Phosphatase 251 U/L (40-110); Anion Gap 19 mmol/L (10-20); BUN (Urea Nitrogen) 54 mg/dL (7.0-18.7); Bilirubin, Total 0.3 mg/dL (0.2-1.2); Calc. Creatinine Clearance 8 mL/min (70-130); Carbon Dioxide 24 mmol/L (22-29); Chloride 99 mmol/L (98-107); Estimated GFR-MDRD 5; Globulin 2.9 g/dL (2.4-3.5); Glucose 81 mg/dL (70-105); Magnesium 2.1 mg/dL (1.6-2.6); Potassium 4.3 mmol/L (3.5-5.1); Protein, Total 6.3 g/dL (6.0-8.3); Sodium 138 mmol/L (136-145)
[2020-02-19 07:21] LABS: Phosphorus 4.8 mg/dL (2.3-4.7)
[2020-02-19 07:30] LABS: Calcium 5.8 mg/dL (7.8-10.44)
[2020-02-19] MEDS ORDERED: Calcium Gluc 4.6 MEQ/10 ML (100 MG/ML) SLOW IVP SCH ×3 (08:15→21:00)
[2020-02-19] MEDS: Calcium Gluc 4.6 MEQ/10 ML (100 MG/ML) SLOW IVP SCH (09:42)
[2020-02-19] MEDS: Amlodipine 5 MG TAB PO SCH ×2 (09:53→22:00)
[2020-02-19] MEDS: Folic Acid/Vit B Comp W-C PO SCH (09:54)
[2020-02-19] MEDS: Losartan 25 MG TAB PO SCH (09:54)
[2020-02-19] MEDS: Calcium Carbonate 500 MG ChewTAB PO SCH ×3 (09:54→22:00)
[2020-02-19] MEDS: Calcitriol 0.25 MCG CAP PO SCH (09:54)
[2020-02-19] MEDS: Senokot S 8.6-50 MG TAB PO SCH ×2 (09:54→22:00)
[2020-02-19] MEDS: Metoprolol Tartrate 50 MG TAB PO SCH ×2 (09:54→22:00)
[2020-02-19] MEDS ORDERED: Calcitriol 0.25 MCG CAP PO SCH (12:00)
--- NOTE | 2020-02-19 12:21 | PDOC.HOSPP ---
- Subjective Encounter Date: 02/19/20 Encounter Time: 10:40 Subjective: Patient seen in dialysis area. She had a critical calcium this morning. Calcium gluconate given. Repeat calcium 7.2. Will back off on her calcium gluconate supplement twice daily to once daily. With this hold if calcium above 8 as She is also on p.o. supplement.. - Objective Vital Signs & Weight: Vital Signs (12 hours) Temp Pulse Resp BP BP Pulse Ox 02/19/20 09:53 75 02/19/20 08:20 96 02/19/20 07:34 98.2 F 75 14 146/97 H 96 02/19/20 04:00 98.2 F 71 18 146/85 H 99 Weight Weight 165 lb I&O: 02/18/20 02/19/20 02/20/20 06:59 06:59 06:59 Intake Total 1100 1080 Balance 1100 1080 Result Diagrams: 02/19/20 06:45 02/19/20 06:45 Hospitalist ROS - Medication Medications: Active Medications Generic Name Dose Route Start Last Admin Trade Name Freq PRN Reason Stop Dose Admin Hydrocodone Bitart/Acetaminophen 1 tab 02/14/20 11:45 02/18/20 10:23 Hydrocodone/Acetaminophen 5/325 Mg Tablet PO 1 tab Q6H PRN Administration Moderate Pain (4-6) Hydrocodone Bitart/Acetaminophen 2 tab 02/14/20 11:45 02/18/20 20:50 Hydrocodone/Acetaminophen 5/325 Mg Tablet PO 2 tab Q6H PRN Administration Severe Pain (7-10) Amlodipine Besylate 5 mg 02/18/20 21:00 02/19/20 09:53 Amlodipine 5 Mg Tab PO Not Given BID HETAL Atorvastatin Calcium 40 mg 02/14/20 21:00 02/18/20 20:42 Atorvastatin Calcium 40 Mg Tab PO 40 mg HS HETAL Administration Benzonatate 100 mg 02/14/20 15:32 02/19/20 08:21 Benzonatate 100 Mg Cap PO 100 mg Q4H PRN Administration Cough Calcium Carbonate 1,000 mg 02/17/20 13:00 02/19/20 09:54 Calcium Carbonate 500 Mg Chewtab PO Not Given QID HETAL Clonidine 0.1 mg 02/17/20 09:53 02/17/20 21:05 Clonidine 0.1 Mg Tab PO 0.1 mg Q6H PRN Administration Blood Pressure Ergocalciferol 1.25 mg 02/18/20 14:00 02/18/20 14:45 Ergocalciferol 1.25 Mg(50,000 Units) Cap PO 1.25 mg Q7D HETAL Administration Losartan Potassium 25 mg 02/17/20 09:00 02/19/20 09:54 Losartan 25 Mg Tab PO Not Given DAILY HETAL Melatonin 3 mg 02/14/20 20:48 02/17/20 21:06 Melatonin 3 Mg Tab PO 3 mg HS PRN Administration Insomnia Metoprolol Tartrate 50 mg 02/15/20 21:00 02/19/20 09:54 Metoprolol Tartrate 50 Mg Tab PO Not Given BID HETAL Ondansetron HCl 4 mg 02/14/20 11:37 02/18/20 17:45 Ondansetron Pf 4 Mg/2 Ml Vial IVP 4 mg Q8H PRN Administration Nausea/Vomiting Ondansetron HCl 4 mg 02/15/20 12:22 02/18/20 01:18 Ondansetron Odt 4 Mg Tab PO 4 mg Q6H PRN Administration Nausea/Vomiting Senna/Docusate Sodium 1 tab 02/16/20 21:00 02/19/20 09:54 Senokot S 8.6-50 Mg Tab PO Not Given BID [facility] Sodium Chloride 10 ml 02/15/20 09:00 02/19/20 09:54 Flush - Normal Saline 10 Ml Syringe IVF Not Given Q12HR HETAL Tramadol HCl 50 mg 02/16/20 12:00 02/19/20 05:05 Tramadol Hcl 50 Mg Tab PO 50 mg Q6HR HETAL Administration Vitamin B Complex/Vit C/Folic Acid 1 tab 02/15/20 09:00 02/19/20 09:54 Folic Acid/Vit B Comp W-C PO Not Given DAILY HETAL - Exam General Appearance: NAD, awake alert Eye: PERRL ENT: normocephalic atraumatic Neck: supple Heart: RRR Respiratory: CTAB, normal chest expansion Gastrointestinal: soft, normal bowel sounds Neurological: cranial nerve grossly intact, no focal deficits Psychiatric: normal affect, A&O x 3 Hosp A/P - Plan #tertiary hyperparathyroidism; POD 2 s/p parathyroidectomy complains of diffuse bone pain; base on EMR, hasn't been taking pain medications consistently changed tramadol to scheduled continue norco PRN breakthrough pain surgery onboard #hypocalcemia-------------> corrected calcium 6.6.--- He is in the range of 6.3- 6.6. 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 -increased calcium carbonate to TID -continue calcitriol #constipation last bowel movement on Wednesday started senna, doc scheduled; bisacodyl [place] once, then PRN #ESRD HD yesterday held midway due to hypotension per patient nephrology onboard #HTN restarted metoprolol, reduced losartan to 25mg PO daily And soft diet- restricted on fibers. 4th Hypocalcemia due to lack of IV access right IJ has been placed this morning for continued calcium supplement. Her calcium this morning critically low at 5.7. -We will supplement IV calcium gluconate in addition to have p.o. until calcium is close to low normal range. Her vitamin D level is also in the low normal range.--On calcitriol 0.25 renan rograms a day Adding vitamin D3 50,000 unit weekly dose until her level is in the normal range. Currently it is around 6 and it is very low and calcitriol is not enough at this point. Also checking her mag level. Her blood pressure is elevated. But patient is refusing to take take the meds today. Norvasc 5 twice a day added as well as clonidine as needed. 5th Pressure is acceptable today. She is undergoing dialysis today. Hypocalcemia -Improving. Closely follow as she is both on IV calcium gluconate and p.o. supplement. If calcium level reaches above 8 then will discontinue IV calcium supplement. -holding parameters placed in that regard. Mag in the normal range
[2020-02-19] MEDS: HYDROcodone/Acetaminophen 5/325 mg Tablet PO PRN (12:35)
--- NOTE | 2020-02-19 12:59 | PRG ---
DATE OF SERVICE: 02/19/2020 SUBJECTIVE: A 44-year-old female, being seen for end-stage renal disease. The patient denied nausea, vomiting, or chest pain. PHYSICAL EXAMINATION: General: The patient is awake and alert. Vital Signs: Afebrile, pulse 75, breathing at 16, blood pressure 146/97. HEENT: Head normocephalic and atraumatic. Eyes intact, no ulcers. Nose intact, no ulcers. Ears intact, no ulcers. Neck: Supple. No JVD. Chest: Symmetrical and clear. Cardiovascular: Shows S1 and S2, no rub, no murmur. Gastrointestinal: Abdomen is soft, bowel sounds positive. Extremities: Show no edema or ulcers. Skin: Shows no rash or petechiae. Musculoskeletal: Shows no joint swelling or stiffness. Genitourinary: Shows no Alberts or CVA tenderness. Neurologic: Motor intact. Cranial nerves intact. LABORATORY DATA: Showed hemoglobin 9.1. Creatinine 10.4. ASSESSMENT AND PLAN: 1. Chronic kidney disease, stage 6. Plan dialysis. 2. Hypertension, stable. 3. Anemia, stable. 4. Hypocalcemia. Recommend aggressive potassium replacement and continue vitamin D as doing. Job ID: [id number]
[2020-02-19] MEDS: Atorvastatin Calcium 40 MG TAB PO SCH (22:00)
[2020-02-20 07:05] LABS: #Basophils 0.1 thou/uL (0.0-0.2); #Eosinphils 1.2 thou/uL (0.0-0.7); #Monocytes 0.6 thou/uL (0.11-0.59); #Neutrophils 4.9 thou/uL (1.40-6.50); %Eosinophils 13.8 % (0.0-10.0); %Lymphocytes 22.8 % (21.0-51.0); %Neutrophils 55.5 % (42.0-75.0); Hemoglobin 9.5 g/dL (12.0-16.0); Mean Corpuscular Hemoglobin 30.4 pg (27.0-31.0); Mean Platelet Volume 6.5 fL (7.4-10.4); Platelet Count 302 thou/uL (130-400); RBC Distribution Width 14.6 % (11.5-14.5); Red Blood Cell (RBC) Count 3.12 mill/uL (4.20-5.40); White Blood Cell (WBC) Count 8.8 thou/uL (4.8-10.8)
[2020-02-20 07:26] LABS: ALT (SGPT) Less than 7 U/L (8-55); AST (SGOT) 12 U/L (5-34); Albumin 3.5 g/dL (3.5-5.0); Alkaline Phosphatase 272 U/L (40-110); Anion Gap 17 mmol/L (10-20); BUN (Urea Nitrogen) 33 mg/dL (7.0-18.7); Bilirubin, Total 0.5 mg/dL (0.2-1.2); Calc. Creatinine Clearance 13 mL/min (70-130); Calcium 6.2 mg/dL (7.8-10.44); Carbon Dioxide 26 mmol/L (22-29); Chloride 99 mmol/L (98-107); Estimated GFR-MDRD 8; Glucose 89 mg/dL (70-105); Magnesium 2.1 mg/dL (1.6-2.6); Potassium 4.3 mmol/L (3.5-5.1); Protein, Total 6.5 g/dL (6.0-8.3); Sodium 138 mmol/L (136-145)
[2020-02-20] MEDS: Calcium Carbonate 500 MG ChewTAB PO SCH ×3 (08:18→20:45)
[2020-02-20] MEDS: Calcitriol 0.25 MCG CAP PO SCH (08:19)
[2020-02-20] MEDS: Folic Acid/Vit B Comp W-C PO SCH (08:19)
[2020-02-20] MEDS: traMADol HCl 50 MG TAB PO SCH ×2 (08:19→20:45)
[2020-02-20] MEDS: Senokot S 8.6-50 MG TAB PO SCH ×2 (08:19→20:47)
[2020-02-20] MEDS: Losartan 25 MG TAB PO SCH (08:20)
[2020-02-20] MEDS: Metoprolol Tartrate 50 MG TAB PO SCH ×2 (08:20→20:45)
[2020-02-20] MEDS: Amlodipine 5 MG TAB PO SCH ×2 (08:20→20:45)
[2020-02-20] MEDS: Calcium Gluc 4.6 MEQ/10 ML (100 MG/ML) SLOW IVP SCH (08:21)
--- NOTE | 2020-02-20 12:06 | PDOC.HOSPP ---
- Subjective Encounter Date: 02/20/20 Encounter Time: 09:30 Subjective: Patient is sitting in the bed. Family at bedside she does not have any acute complaints. No muscle cramps at this point. Her calcium has slight improvement. Added second dose of IV calcium and will repeat the level this a fternoon. - Objective Vital Signs & Weight: Vital Signs (12 hours) Temp Pulse Resp BP BP BP BP 02/20/20 11:29 97.9 F 72 18 149/91 H 02/20/20 08:20 77 164/97 H 02/20/20 08:00 02/20/20 07:50 98.1 F 77 14 164/97 H 02/20/20 04:08 98.5 F 73 16 153/91 H 02/20/20 00:14 97.9 F 75 16 152/96 H Pulse Ox 02/20/20 11:29 99 02/20/20 08:20 02/20/20 08:00 99 02/20/20 07:50 99 02/20/20 04:08 96 02/20/20 00:14 100 Weight Weight 165 lb I&O: 02/19/20 02/20/20 02/21/20 06:59 06:59 06:59 Intake Total 1080 780 Balance 1080 780 Result Diagrams: 02/20/20 06:55 02/20/20 06:55 Hospitalist ROS - Medication Medications: Active Medications Generic Name Dose Route Start Last Admin Trade Name Freq PRN Reason Stop Dose Admin Hydrocodone Bitart/Acetaminophen 1 tab 02/14/20 11:45 02/18/20 10:23 Hydrocodone/Acetaminophen 5/325 Mg Tablet PO 1 tab Q6H PRN Administration Moderate Pain (4-6) Hydrocodone Bitart/Acetaminophen 2 tab 02/14/20 11:45 02/19/20 12:35 Hydrocodone/Acetaminophen 5/325 Mg Tablet PO 2 tab Q6H PRN Administration Severe Pain (7-10) Amlodipine Besylate 5 mg 02/18/20 21:00 02/20/20 08:20 Amlodipine 5 Mg Tab PO 5 mg BID HETAL Administration Atorvastatin Calcium 40 mg 02/14/20 21:00 02/19/20 22:00 Atorvastatin Calcium 40 Mg Tab PO 40 mg HS HETAL Administration Benzonatate 100 mg 02/14/20 15:32 02/19/20 08:21 Benzonatate 100 Mg Cap PO 100 mg Q4H PRN Administration Cough Calcitriol 0.5 mcg 02/20/20 09:00 02/20/20 08:19 Calcitriol 0.25 Mcg Cap PO 0.5 mcg DAILY HETAL Administration Calcium Gluconate 4.6 meq 02/20/20 09:00 02/20/20 08:21 Calcium Gluc 4.6 Meq/10 Ml (100 Mg/Ml) SLOW IVP 02/21/20 11:00 4.6 meq DAILY HETAL Administration Clonidine 0.1 mg 02/17/20 09:53 02/17/20 21:05 Clonidine 0.1 Mg Tab PO 0.1 mg Q6H PRN Administration Blood Pressure Ergocalciferol 1.25 mg 02/18/20 14:00 02/18/20 14:45 Ergocalciferol 1.25 Mg(50,000 Units) Cap PO 1.25 mg Q7D HETAL Administration Losartan Potassium 25 mg 02/17/20 09:00 02/20/20 08:20 Losartan 25 Mg Tab PO 25 mg DAILY HETAL Administration Melatonin 3 mg 02/14/20 20:48 02/17/20 21:06 Melatonin 3 Mg Tab PO 3 mg HS PRN Administration Insomnia Metoprolol Tartrate 50 mg 02/15/20 21:00 02/20/20 08:20 Metoprolol Tartrate 50 Mg Tab PO 50 mg BID HETAL Administration Ondansetron HCl 4 mg 02/14/20 11:37 02/18/20 17:45 Ondansetron Pf 4 Mg/2 Ml Vial IVP 4 mg Q8H PRN Administration Nausea/Vomiting Ondansetron HCl 4 mg 02/15/20 12:22 02/18/20 01:18 Ondansetron Odt 4 Mg Tab PO 4 mg Q6H PRN Administration Nausea/Vomiting Senna/Docusate Sodium 1 tab 02/16/20 21:00 02/20/20 08:19 Senokot S 8.6-50 Mg Tab PO 1 tab BID HETAL Administration Sodium Chloride 10 ml 02/15/20 09:00 02/19/20 22:00 Flush - Normal Saline 10 Ml Syringe IVF 10 ml Q12HR HETAL Administration Tramadol HCl 50 mg 02/19/20 21:00 02/20/20 08:19 Tramadol Hcl 50 Mg Tab PO 50 mg Q12HR HETAL Administration Vitamin B Complex/Vit C/Folic Acid 1 tab 02/15/20 09:00 02/20/20 08:19 Folic Acid/Vit B Comp W-C PO 1 tab DAILY HETAL Administration - Exam General Appearance: NAD, awake alert Eye: PERRL ENT: normocephalic atraumatic ENT - other findings: Neck is little swollen but no erythema ordischarg around incision site Neck: supple Heart: RRR Gastrointestinal: soft, normal bowel sounds Neurological: cranial nerve grossly intact, normal sensation to touch, no focal deficits Psychiatric: A&O x 3 Hosp A/P - Plan #tertiary hyperparathyroidism; POD 2 s/p parathyroidectomy complains of diffuse bone pain; base on EMR, hasn't been taking pain medications consistently changed tramadol to scheduled continue norco PRN breakthrough pain surgery onboard #hypocalcemia-------------> corrected calcium 6.6.--- He is in the range of 6.3- 6.6. 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 -increased calcium carbonate to TID -continue calcitriol #constipation last bowel movement on Wednesday started senna, doc scheduled; bisacodyl [place] once, then PRN #ESRD HD yesterday held midway due to hypotension per patient nephrology onboard #HTN restarted metoprolol, reduced losartan to 25mg PO daily And soft diet- restricted on fibers. 4th Hypocalcemia due to lack of IV access right IJ has been placed this morning for continued calcium supplement. Her calcium this morning critically low at 5.7. -We will supplement IV calcium gluconate in addition to have p.o. until calcium is close to low normal range. Her vitamin D level is also in the low normal range.--On calcitriol 0.25 mi crograms a day Adding vitamin D3 50,000 unit weekly dose until her level is in the normal range. Currently it is around 6 and it is very low and calcitriol is not enough at this point. Also checking her mag level. Her blood pressure is elevated. But patient is refusing to take take the meds today. Norvasc 5 twice a day added as well as clonidine as needed. 5th Pressure is acceptable today. She is undergoing dialysis today. Hypocalcemia -Improving. Closely follow as she is both on IV calcium gluconate and p.o. supplement. If calcium level reaches above 8 then will discontinue IV calcium supplement. -holding parameters placed in that regard. Mag in the normal range 6th Calcium level is slightly improving. No other major medical acuity at this point. Pending calcium level this afternoon.
[2020-02-20] MEDS ORDERED: Calcium Gluc 4.6 MEQ/10 ML (100 MG/ML) SLOW IVP SCH (13:00)
[2020-02-20] MEDS: Ondansetron ODT 4 MG TAB PO PRN (13:14)
--- NOTE | 2020-02-20 13:58 | EKG ---
Test Reason : Blood Pressure : / mmHG Vent. Rate : 076 BPM Atrial Rate : 076 BPM P-R Int : 130 ms QRS Dur : 082 ms QT Int : 404 ms P-R-T Axes : 032 018 -82 degrees QTc Int : 454 ms Normal sinus rhythm Minimal voltage criteria for LVH, may be normal variant T wave abnormality, consider inferolateral ischemia Abnormal ECG Confirmed by MARY BOTELLO ([id number]) on 02/20/2020 1:58:42 PM Referred By: WIL Confirmed By:MARY BOTELLO
--- NOTE | 2020-02-20 20:01 | PRG ---
DATE OF SERVICE: 02/20/2020 SUBJECTIVE: A 44-year-old female being seen for end-stage renal disease. The patient denies any nausea, vomiting, or chest pain. OBJECTIVE: GENERAL: The patient is awake, alert. VITAL SIGNS: Afebrile. Pulse 75, breathing 16, blood pressure 144/85. HEENT: Head normocephalic and atraumatic. Eyes intact, no ulcers. Nose intact, no ulcers. Ears intact, no ulcers. NECK: Supple. No JVD. CHEST: Symmetrical and clear. CARDIOVASCULAR: Shows S1 and S2, no rub, no murmur. GASTROINTESTINAL: Abdomen is soft, bowel sounds positive. EXTREMITIES: Show no edema or ulcers. SKIN: Shows no rash or petechiae. MUSCULOSKELETAL: Shows no joint swelling or stiffness. GENITOURINARY: Shows no Alberts or CVA tenderness. NEUROLOGIC: Motor intact. Cranial nerves intact. LABORATORY DATA: Labs showed hemoglobin 9.5. Calcium is 6.7. ASSESSMENT AND PLAN: 1. Chronic kidney disease stage 6. Plan dialysis per schedule. 2. Hypocalcemia. Recommend increasing Tums to 1500 t.i.d. with meals, calcitriol has been increased. 3. Anemia, stable. 4. Medication based on GFR appropriate. I will use high calcium bath. The patient has a low vitamin D level as well. Job ID: [id number]
[2020-02-20] MEDS: Atorvastatin Calcium 40 MG TAB PO SCH (20:44)
[2020-02-21] MEDS: Melatonin 3 MG TAB PO PRN (01:35)
[2020-02-21] MEDS: HYDROcodone/Acetaminophen 5/325 mg Tablet PO PRN ×3 (02:24→18:45)
[2020-02-21 06:02] LABS: #Basophils 0.1 thou/uL (0.0-0.2); #Eosinphils 1.2 thou/uL (0.0-0.7); #Lymphocytes 2.2 thou/uL (1.20-3.40); #Monocytes 0.7 thou/uL (0.11-0.59); #Neutrophils 5.2 thou/uL (1.40-6.50); %Basophils 0.9 % (0.0-1.0); %Eosinophils 12.9 % (0.0-10.0); %Lymphocytes 23.6 % (21.0-51.0); %Neutrophils 55.6 % (42.0-75.0); Hemoglobin 9.6 g/dL (12.0-16.0); Mean Corpuscular HGB CONC 32.3 g/dL (32.0-36.0); Mean Corpuscular Hemoglobin 30.8 pg (27.0-31.0); Mean Corpuscular Volume 95.3 fL (78.0-98.0); Mean Platelet Volume 6.7 fL (7.4-10.4); Platelet Count 303 thou/uL (130-400); RBC Distribution Width 14.3 % (11.5-14.5); White Blood Cell (WBC) Count 9.4 thou/uL (4.8-10.8)
[2020-02-21 06:23] LABS: ALT (SGPT) Less than 7 U/L (8-55); AST (SGOT) 13 U/L (5-34); Albumin 3.5 g/dL (3.5-5.0); Alkaline Phosphatase 295 U/L (40-110); Anion Gap 16 mmol/L (10-20); BUN (Urea Nitrogen) 51 mg/dL (7.0-18.7); Bilirubin, Total 0.3 mg/dL (0.2-1.2); Calc. Creatinine Clearance 10 mL/min (70-130); Calcium 6.1 mg/dL (7.8-10.44); Carbon Dioxide 26 mmol/L (22-29); Chloride 100 mmol/L (98-107); Estimated GFR-MDRD 6; Globulin 2.9 g/dL (2.4-3.5); Glucose 165 mg/dL (70-105); Potassium 4.4 mmol/L (3.5-5.1); Protein, Total 6.4 g/dL (6.0-8.3); Sodium 138 mmol/L (136-145)
[2020-02-21] MEDS: traMADol HCl 50 MG TAB PO SCH ×2 (07:42→20:38)
[2020-02-21] MEDS: Amlodipine 5 MG TAB PO SCH ×2 (09:00→20:37)
[2020-02-21] MEDS: Senokot S 8.6-50 MG TAB PO SCH ×2 (09:00→20:39)
[2020-02-21] MEDS: Metoprolol Tartrate 50 MG TAB PO SCH ×2 (09:00→20:37)
[2020-02-21] MEDS ORDERED: Calcitriol 0.25 MCG CAP PO SCH (09:45)
[2020-02-21] MEDS ORDERED: Calcium Carbonate 500 MG ChewTAB PO SCH (09:45)
--- NOTE | 2020-02-21 11:55 | PRG ---
DATE OF SERVICE: 02/21/2020 SUBJECTIVE: A 44-year-old lady, being seen for end-stage renal disease. The patient denied nausea, vomiting, or chest pain. PHYSICAL EXAMINATION: GENERAL: The patient is awake and alert. VITAL SIGNS: Afebrile, pulse 70, breathing at 16, blood pressure 122/77. HEENT: Head normocephalic and atraumatic. Eyes intact, no ulcers. Nose intact, no ulcers. Ears intact, no ulcers. NECK: Supple. No JVD. CHEST: Symmetrical and clear. CARDIOVASCULAR: Shows S1 and S2, no rub, no murmur. GASTROINTESTINAL: Abdomen is soft, bowel sounds positive. EXTREMITIES: Show no edema or ulcers. SKIN: Shows no rash or petechiae. MUSCULOSKELETAL: Shows no joint swelling or stiffness. GENITOURINARY: Shows no Alberts or CVA tenderness. NEUROLOGIC: Motor intact. Cranial nerves intact. LABORATORY DATA: Hemoglobin 9.6. Calcium 6.1. ASSESSMENT AND PLAN: 1. Chronic kidney disease, stage 6. Plan dialysis. 2. Hypertension, stable. 3. Anemia, stable. 4. Hypocalcemia. Increase Tums to 2000 mg daily. Increase calcitriol to 1 mcg daily. Follow labs closely and recommend checking an ionized calcium. Job ID: [id number]
[2020-02-21] MEDS: Folic Acid/Vit B Comp W-C PO SCH (12:05)
[2020-02-21] MEDS: Calcium Gluc 4.6 MEQ/10 ML (100 MG/ML) SLOW IVP SCH (12:05)
[2020-02-21] MEDS: Losartan 25 MG TAB PO SCH (12:05)
--- NOTE | 2020-02-21 12:21 | PDOC.HOSPP ---
- Subjective Encounter Date: 02/21/20 Encounter Time: 10:30 Subjective: Patient seen in the dialysis area. She is very discharge plan discussed with her. She does not know the name of the surgical pathologist but she follows with the satellite dialysis in [place]. Will get ionized calcium level today - Objective Vital Signs & Weight: Vital Signs (12 hours) Temp Pulse Resp BP Pulse Ox 02/21/20 07:30 98.4 F 72 14 150/87 H 100 02/21/20 04:03 98.4 F 70 18 128/77 100 Weight Weight 165 lb I&O: 02/20/20 02/21/20 02/22/20 06:59 06:59 06:59 Intake Total 780 660 Balance 780 660 Result Diagrams: 02/21/20 05:50 02/21/20 05:50 Hospitalist ROS - Medication Medications: Active Medications Generic Name Dose Route Start Last Admin Trade Name Freq PRN Reason Stop Dose Admin Hydrocodone Bitart/Acetaminophen 1 tab 02/14/20 11:45 02/18/20 10:23 Hydrocodone/Acetaminophen 5/325 Mg Tablet PO 1 tab Q6H PRN Administration Moderate Pain (4-6) Hydrocodone Bitart/Acetaminophen 2 tab 02/14/20 11:45 02/21/20 12:03 Hydrocodone/Acetaminophen 5/325 Mg Tablet PO 2 tab Q6H PRN Administration Severe Pain (7-10) Amlodipine Besylate 5 mg 02/18/20 21:00 02/21/20 09:00 Amlodipine 5 Mg Tab PO Not Given BID HETAL Atorvastatin Calcium 40 mg 02/14/20 21:00 02/20/20 20:44 Atorvastatin Calcium 40 Mg Tab PO 40 mg HS HETAL Administration Benzonatate 100 mg 02/14/20 15:32 02/19/20 08:21 Benzonatate 100 Mg Cap PO 100 mg Q4H PRN Administration Cough Clonidine 0.1 mg 02/17/20 09:53 02/17/20 21:05 Clonidine 0.1 Mg Tab PO 0.1 mg Q6H PRN Administration Blood Pressure Ergocalciferol 1.25 mg 02/18/20 14:00 02/18/20 14:45 Ergocalciferol 1.25 Mg(50,000 Units) Cap PO 1.25 mg Q7D HETAL Administration Losartan Potassium 25 mg 02/17/20 09:00 02/21/20 12:05 Losartan 25 Mg Tab PO 25 mg DAILY HETAL Administration Melatonin 3 mg 02/14/20 20:48 02/21/20 01:35 Melatonin 3 Mg Tab PO 3 mg HS PRN Administration Insomnia Metoprolol Tartrate 50 mg 02/15/20 21:00 02/21/20 09:00 Metoprolol Tartrate 50 Mg Tab PO Not Given BID HETAL Ondansetron HCl 4 mg 02/14/20 11:37 02/18/20 17:45 Ondansetron Pf 4 Mg/2 Ml Vial IVP 4 mg Q8H PRN Administration Nausea/Vomiting Ondansetron HCl 4 mg 02/15/20 12:22 02/20/20 13:14 Ondansetron Odt 4 Mg Tab PO 4 mg Q6H PRN Administration Nausea/Vomiting Senna/Docusate Sodium 1 tab 02/16/20 21:00 02/21/20 09:00 Senokot S 8.6-50 Mg Tab PO Not Given BID HETAL Sodium Chloride 10 ml 02/15/20 09:00 02/20/20 20:47 Flush - Normal Saline 10 Ml Syringe IVF 10 ml Q12HR HETAL Administration Tramadol HCl 50 mg 02/19/20 21:00 02/21/20 07:42 Tramadol Hcl 50 Mg Tab PO 50 mg Q12HR HETAL Administration Vitamin B Complex/Vit C/Folic Acid 1 tab 02/15/20 09:00 02/21/20 12:05 Folic Acid/Vit B Comp W-C PO 1 tab DAILY HETAL Administration - Exam General Appearance: NAD, awake alert Eye: PERRL ENT: normocephalic atraumatic Neck: supple Heart: RRR Respiratory: CTAB, normal chest expansion Gastrointestinal: soft, normal bowel sounds Neurological: no focal deficits Psychiatric: A&O x 3 Hosp A/P - Plan #tertiary hyperparathyroidism; POD 2 s/p parathyroidectomy complains of diffuse bone pain; base on EMR, hasn't been taking pain medications consistently changed tramadol to scheduled continue norco PRN breakthrough pain surgery onboard #hypocalcemia-------------> corrected calcium 6.6.--- He is in the range of 6.3- 6.6. 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 -increased calcium carbonate to TID -continue calcitriol #constipation last bowel movement on Wednesday started senshailesh doc scheduled; bisacodyl OR once, then PRN #ESRD HD yesterday held midway due to hypotension per patient nephrology onboard #HTN restarted metoprolol, reduced losartan to 25mg PO daily And soft diet- restricted on fibers. 4th Hypocalcemia due to lack of IV access right IJ has been placed this morning for continued calcium supplement. Her calcium this morning critically low at 5.7. -We will supplement IV calcium gluconate in addition to have p.o. until calcium is close to low normal range. Her vitamin D level is also in the low normal range.--On calcitriol 0.25 micrograms a day Adding vitamin D3 50,000 unit weekly dose until her level is in the normal range. Currently it is around 6 and it is very low and calcitriol is not enough at this point. Also checking her mag level. Her blood pressure is elevated. But patient is refusing to take take the meds today. Norvasc 5 twice a day added as well as clonidine as needed. 5th Pressure is acceptable today. She is undergoing dialysis today. Hypocalcemia -Improving. Closely follow as she is both on IV calcium gluconate and p.o. supplement. If calcium level reaches above 8 then will discontinue IV calcium supplement. -holding parameters placed in that regard. Mag in the normal range 6th Calcium level is slightly improving. No other major medical acuity at this point. Pending calcium level this afternoon. 7th Calcium still below the normal range. Talk to Dr. Hinds - plan to send her home with a calcium 2000 mg 3 times a day and calcitriol 1 mcg daily. She follows with the [facility] -She does not know the name of the surgical pathologist. -She needs to check her calcium vitamin D level at least twice a week until this is normalized. -Plan is to send her home likely tomorrow with this information. I talked to the patient regarding the discharge plan.
[2020-02-21] MEDS ORDERED: Calcium Gluc 4.6 MEQ/10 ML (100 MG/ML) SLOW IVP SCH (13:15)
[2020-02-21] MEDS: Calcitriol 0.25 MCG CAP PO SCH (13:50)
[2020-02-21] MEDS: Calcium Carbonate 500 MG ChewTAB PO SCH ×3 (13:50→16:58)
[2020-02-21] MEDS: Atorvastatin Calcium 40 MG TAB PO SCH (20:37)
[2020-02-22 06:44] LABS: #Eosinphils 1.1 thou/uL (0.0-0.7); #Lymphocytes 2.1 thou/uL (1.20-3.40); #Monocytes 0.8 thou/uL (0.11-0.59); %Basophils 0.6 % (0.0-1.0); %Eosinophils 13.6 % (0.0-10.0); %Lymphocytes 26.3 % (21.0-51.0); %Monocytes 9.9 % (0.0-10.0); %Neutrophils 49.6 % (42.0-75.0); Hemoglobin 9.9 g/dL (12.0-16.0); Mean Corpuscular HGB CONC 31.7 g/dL (32.0-36.0); Mean Corpuscular Hemoglobin 30.8 pg (27.0-31.0); Mean Platelet Volume 6.8 fL (7.4-10.4); Platelet Count 336 thou/uL (130-400); RBC Distribution Width 14.2 % (11.5-14.5); White Blood Cell (WBC) Count 8.1 thou/uL (4.8-10.8)
[2020-02-22 07:35] LABS: ALT (SGPT) Less than 7 U/L (8-55); AST (SGOT) 14 U/L (5-34); Albumin 3.7 g/dL (3.5-5.0); Alkaline Phosphatase 326 U/L (40-110); Anion Gap 16 mmol/L (10-20); BUN (Urea Nitrogen) 34 mg/dL (7.0-18.7); Bilirubin, Total 0.4 mg/dL (0.2-1.2); Calc. Creatinine Clearance 14 mL/min (70-130); Carbon Dioxide 28 mmol/L (22-29); Chloride 100 mmol/L (98-107); Estimated GFR-MDRD 9; Globulin 3.1 g/dL (2.4-3.5); Glucose 83 mg/dL (70-105); Protein, Total 6.8 g/dL (6.0-8.3); Sodium 139 mmol/L (136-145)
[2020-02-22] MEDS: Calcium Carbonate 500 MG ChewTAB PO SCH ×4 (09:19→20:43)
[2020-02-22] MEDS: Calcitriol 0.25 MCG CAP PO SCH (09:21)
[2020-02-22] MEDS: Amlodipine 5 MG TAB PO SCH ×2 (09:22→20:42)
[2020-02-22] MEDS: Losartan 25 MG TAB PO SCH (09:23)
[2020-02-22] MEDS: Folic Acid/Vit B Comp W-C PO SCH (09:23)
[2020-02-22] MEDS: Senokot S 8.6-50 MG TAB PO SCH ×2 (09:23→20:43)
[2020-02-22] MEDS: traMADol HCl 50 MG TAB PO SCH ×2 (09:24→20:42)
[2020-02-22] MEDS: Metoprolol Tartrate 50 MG TAB PO SCH ×2 (09:24→20:43)
[2020-02-22] MEDS ORDERED: Ergocalciferol 1.25 MG(50,000 UNITS) CAP PO SCH (09:30)
[2020-02-22] MEDS ORDERED: Iopamidol-370 76% 500 ML 1 ML ONE (12:56)
[2020-02-22 13:13] LABS: Lactic Acid 0.7 mmol/L (0.5-2.2)
[2020-02-22 13:38] LABS: Phosphorus 3.8 mg/dL (2.3-4.7)
--- NOTE | 2020-02-22 13:43 | PDOC.HOSPP ---
- Subjective Encounter Date: 02/22/20 Encounter Time: 10:30 Subjective: Spouse at bedside. Discharge orders done. I talked to the patient. She does not feel like going home today. She does look tired but clinically stable. - Objective Vital Signs & Weight: Vital Signs (12 hours) Temp Pulse Resp BP BP Pulse Ox 02/22/20 09:22 81 02/22/20 08:29 98.2 F 81 16 166/88 H 100 02/22/20 05:30 98.3 F 18 147/86 H Weight Weight 165 lb I&O: 02/21/20 02/22/20 02/23/20 06:59 06:59 06:59 Intake Total 1140 480 Balance 1140 480 Result Diagrams: 02/22/20 05:35 02/22/20 05:35 Hospitalist ROS - Medication Medications: Active Medications Generic Name Dose Route Start Last Admin Trade Name Freq PRN Reason Stop Dose Admin Hydrocodone Bitart/Acetaminophen 1 tab 02/14/20 11:45 02/18/20 10:23 Hydrocodone/Acetaminophen 5/325 Mg Tablet PO 1 tab Q6H PRN Administration Moderate Pain (4-6) Hydrocodone Bitart/Acetaminophen 2 tab 02/14/20 11:45 02/21/20 18:45 Hydrocodone/Acetaminophen 5/325 Mg Tablet PO 2 tab Q6H PRN Administration Severe Pain (7-10) Amlodipine Besylate 5 mg 02/18/20 21:00 02/22/20 09:22 Amlodipine 5 Mg Tab PO 5 mg BID HETAL Administration Atorvastatin Calcium 40 mg 02/14/20 21:00 02/21/20 20:37 Atorvastatin Calcium 40 Mg Tab PO 40 mg HS HETAL Administration Benzonatate 100 mg 02/14/20 15:32 02/19/20 08:21 Benzonatate 100 Mg Cap PO 100 mg Q4H PRN Administration Cough Calcitriol 1 mcg 02/22/20 09:00 02/22/20 09:21 Calcitriol 0.25 Mcg Cap PO 1 mcg DAILY HETAL Administration Calcium Carbonate 2,000 mg 02/21/20 12:00 02/22/20 13:28 Calcium Carbonate 500 Mg Chewtab PO 2,000 mg TID-WM HETAL Administration Clonidine 0.1 mg 02/17/20 09:53 02/17/20 21:05 Clonidine 0.1 Mg Tab PO 0.1 mg Q6H PRN Administration Blood Pressure Ergocalciferol 1.25 mg 02/18/20 14:00 02/18/20 14:45 Ergocalciferol 1.25 Mg(50,000 Units) Cap PO 1.25 mg Q7D HETAL Administration Losartan Potassium 25 mg 02/17/20 09:00 02/22/20 09:23 Losartan 25 Mg Tab PO 25 mg DAILY HETAL Administration Melatonin 3 mg 02/14/20 20:48 02/21/20 01:35 Melatonin 3 Mg Tab PO 3 mg HS PRN Administration Insomnia Metoprolol Tartrate 50 mg 02/15/20 21:00 02/22/20 09:24 Metoprolol Tartrate 50 Mg Tab PO 50 mg BID HETAL Administration Ondansetron HCl 4 mg 02/14/20 11:37 02/18/20 17:45 Ondansetron Pf 4 Mg/2 Ml Vial IVP 4 mg Q8H PRN Administration Nausea/Vomiting Ondansetron HCl 4 mg 02/15/20 12:22 02/20/20 13:14 Ondansetron Odt 4 Mg Tab PO 4 mg Q6H PRN Administration Nausea/Vomiting Senna/Docusate Sodium 1 tab 02/16/20 21:00 02/22/20 09:23 Senokot S 8.6-50 Mg Tab PO 1 tab BID HETAL Administration Sodium Chloride 10 ml 02/15/20 09:00 02/22/20 09:27 Flush - Normal Saline 10 Ml Syringe IVF 10 ml Q12HR HETAL Administration Tramadol HCl 50 mg 02/19/20 21:00 02/22/20 09:24 Tramadol Hcl 50 Mg Tab PO 50 mg Q12HR HETAL Administration Vitamin B Complex/Vit C/Folic Acid 1 tab 02/15/20 09:00 02/22/20 09:23 Folic Acid/Vit B Comp W-C PO 1 tab DAILY HETAL Administration - Exam General Appearance: NAD, awake alert Eye: PERRL ENT: normocephalic atraumatic Neck: supple Heart: RRR Respiratory: CTAB, normal chest expansion Gastrointestinal: soft, normal bowel sounds Neurological: cranial nerve grossly intact, no focal deficits Psychiatric: normal affect, A&O x 3 Hosp A/P - Plan #tertiary hyperparathyroidism; POD 2 s/p parathyroidectomy complains of diffuse bone pain; base on EMR, hasn't been taking pain medications consistently changed tramadol to scheduled continue norco PRN breakthrough pain surgery onboard #hypocalcemia-------------> corrected calcium 6.6.--- He is in the range of 6.3- 6.6. 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 -increased calcium carbonate to TID -continue calcitriol #constipation last bowel movement on Wednesday started senna, doc scheduled; bisacodyl [place] once, then PRN #ESRD HD yesterday held midway due to hypotension per patient nephrology onboard #HTN restarted metoprolol, reduced losartan to 25mg PO daily And soft diet- restricted on fibers. 4th Hypocalcemia due to lack of IV access right IJ has been placed this morning for continued calcium supplement. Her calcium this morning critically low at 5.7. -We will supplement IV calcium gluconate in addition to have p.o. until calcium is close to low normal range. Her vitamin D level is also in the low normal range.--On calcitriol 0.25 micrograms a day Adding vitamin D3 50,000 unit weekly dose until her level is in the normal range. Currently it is around 6 and it is very low and calcitriol is not enough at this point. Also checking her mag level. Her blood pressure is elevated. But patient is refusing to take take the meds today. Norvasc 5 twice a day added as well as clonidine as needed. 5th Pressure is acceptable today. She is undergoing dialysis today. Hypocalcemia -Improving. Closely follow as she is both on IV calcium gluconate and p.o. supplement. If calcium level reaches above 8 then will discontinue IV calcium supplement. -holding parameters placed in that regard. Mag in the normal range 6th Calcium level is slightly improving. No other major medical acuity at this point. Pending calcium level this afternoon. 7th Calcium still below the normal range. Talk to Dr. Hinds - plan to send her home with a calcium 2000 mg 3 times a day and calcitriol 1 mcg daily. 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 -She needs to check her calcium vitamin D level at least twice a week until this is normalized. -Plan is to send her home likely tomorrow with this information. I talked to the patient regarding the discharge plan. 8th Hypocalcemia --Calcium is improving today it is 7. Abdominal discomfort -CT abdomen pelvis ordered. -Lactic acid 0.[address] Hinds and follow w.. CT report Charge home after Dr. Hinds's clearance
[2020-02-22] MEDS: Ondansetron ODT 4 MG TAB PO PRN (16:27)
--- NOTE | 2020-02-22 16:32 | CT ---
CT ABDOMEN AND PELVIS WITH IV CONTRAST: 02/22/20 Oral contrast was given. INDICATIONS: Lower abdominal pain. Lung bases clear. Liver, spleen, and pancreas unremarkable. Post cholecystectomy change. Stomach and duodenum unremarka ble. Adrenal glands normal. Kidneys are small. Small cyst from the superior right kidney measures approximately 1.0 cm. Tiny low density foci in both kidneys are too small to characterize, most likely tiny cysts. No hydronephrosis . Nonspecific distention of small bowel loops. No significant fold thickening. The appendix appears normal. Colon is unremarkable with stool throughout the colon. Aorta normal caliber. No adenopathy or free fluid. Prominent uterus. There is a left ovarian cyst measuring 3.0 cm. Osseous structures show mild diffuse increased density suggesting diffuse sclerosis. This may represent changes of renal osteodystrophy g iven this patient's known renal insufficiency. IMPRESSION: 1. Small kidneys and renal cysts as described. 2. Mild diffuse small bowel distention which is nonspecific. Findings do not suggest bowel obstr uction. 3. Left ovarian cyst. 4. Otherwise no acute process. POS: AGW
--- NOTE | 2020-02-22 18:01 | PRG ---
DATE OF SERVICE: 02/22/2020 SUBJECTIVE: A 44-year-old female, being seen for end-stage renal disease. The patient denied any nausea, vomiting, or chest pain. PHYSICAL EXAMINATION: GENERAL: The patient is awake and alert. VITAL SIGNS: Afebrile, pulse 75, breathing at 16, and blood pressure 144/80. HEENT: Head normocephalic and atraumatic. Eyes intact, no ulcers. Nose intact, no ulcers. Ears intact, no ulcers. NECK: Supple. No JVD. CHEST: Symmetrical and clear. CARDIOVASCULAR: Shows S1 and S2, no rub, no murmur. GASTROINTESTINAL: Abdomen is soft, bowel sounds positive. EXTREMITIES: Show no edema or ulcers. SKIN: Shows no rash or petechiae. MUSCULOSKELETAL: Shows no joint swelling or stiffness. GENITOURINARY: Shows no Alberts or CVA tenderness. NEUROLOGIC: Motor intact. Cranial nerves intact. LABORATORY DATA: Hemoglobin 9.9. Potassium 5, calcium is 7. ASSESSMENT AND PLAN: 1. Chronic kidney disease, stage 3, plan dialysis. 2. Hypertension, stable. 3. Anemia, stable. 4. Medication based on GFR appropriate. 5. Hypocalcemia, improved. I will recheck phosphorus. Job ID: [id number]
[2020-02-22] MEDS: Atorvastatin Calcium 40 MG TAB PO SCH (20:42)
[2020-02-22] MEDS: Melatonin 3 MG TAB PO PRN (22:53)
[2020-02-23 04:12] LABS: #Basophils 0.1 thou/uL (0.0-0.2); #Eosinphils 1.2 thou/uL (0.0-0.7); #Lymphocytes 2.4 thou/uL (1.20-3.40); #Monocytes 0.7 thou/uL (0.11-0.59); #Neutrophils 5.5 thou/uL (1.40-6.50); %Basophils 0.7 % (0.0-1.0); %Eosinophils 11.7 % (0.0-10.0); %Lymphocytes 24.6 % (21.0-51.0); %Monocytes 6.9 % (0.0-10.0); %Neutrophils 56.1 % (42.0-75.0); Hemoglobin 9.4 g/dL (12.0-16.0); Mean Corpuscular HGB CONC 32.5 g/dL (32.0-36.0); Mean Corpuscular Volume 95.2 fL (78.0-98.0); Mean Platelet Volume 6.4 fL (7.4-10.4); Platelet Count 330 thou/uL (130-400); RBC Distribution Width 14.2 % (11.5-14.5); Red Blood Cell (RBC) Count 3.03 mill/uL (4.20-5.40); White Blood Cell (WBC) Count 9.8 thou/uL (4.8-10.8)
[2020-02-23 04:33] LABS: ALT (SGPT) Less than 7 U/L (8-55); AST (SGOT) 15 U/L (5-34); Albumin 3.5 g/dL (3.5-5.0); Alkaline Phosphatase 337 U/L (40-110); Anion Gap 15 mmol/L (10-20); BUN (Urea Nitrogen) 45 mg/dL (7.0-18.7); Bilirubin, Total 0.3 mg/dL (0.2-1.2); Calc. Creatinine Clearance 11 mL/min (70-130); Calcium 6.5 mg/dL (7.8-10.44); Carbon Dioxide 27 mmol/L (22-29); Chloride 98 mmol/L (98-107); Estimated GFR-MDRD 7; Glucose 78 mg/dL (70-105); Protein, Total 6.5 g/dL (6.0-8.3); Sodium 135 mmol/L (136-145)
[2020-02-23] MEDS: Ondansetron PF 4 MG/2 ML Vial IVP PRN ×2 (06:24→21:44)
[2020-02-23] MEDS: Calcium Carbonate 500 MG ChewTAB PO SCH ×4 (10:53→20:31)
--- NOTE | 2020-02-23 11:40 | PRG ---
DATE OF SERVICE: 02/23/2020 SUBJECTIVE: A 44-year-old female being seen for end-stage renal disease. The patient denied any nausea, vomiting, or chest pain. OBJECTIVE: GENERAL: The patient is awake and alert. VITAL SIGNS: Afebrile, pulse 75, breathing 16, blood pressure 158/97. HEENT: Head normocephalic and atraumatic. Eyes intact, no ulcers. Nose intact, no ulcers. Ears intact, no ulcers. NECK: Supple. No JVD. CHEST: Symmetrical and clear. CARDIOVASCULAR: Shows S1 and S2, no rub, no murmur. GASTROINTESTINAL: Abdomen is soft, bowel sounds positive. EXTREMITIES: Show no edema or ulcers. SKIN: Shows no rash or petechiae. MUSCULOSKELETAL: Shows no joint swelling or stiffness. GENITOURINARY: Shows no Alberts or CVA tenderness. NEUROLOGIC: Motor intact. Cranial nerves intact. LABORATORY DATA: Show hemoglobin 9.7, calcium 6.5. ASSESSMENT AND PLAN: 1. Chronic kidney disease stage 6. Plan dialysis. 2. Hypocalcemia. Recommend increasing the calcitriol to 1.5 mcg daily. 3. Anemia, stable. 4. Medication based on GFR appropriate. Job ID: [id number]
[2020-02-23] MEDS: Amlodipine 5 MG TAB PO SCH ×2 (11:57→20:26)
[2020-02-23] MEDS: Metoprolol Tartrate 50 MG TAB PO SCH ×2 (11:58→20:31)
[2020-02-23] MEDS: Calcitriol 0.25 MCG CAP PO SCH (14:01)
[2020-02-23] MEDS: Folic Acid/Vit B Comp W-C PO SCH (14:02)
[2020-02-23] MEDS: Losartan 25 MG TAB PO SCH (14:02)
[2020-02-23] MEDS: Senokot S 8.6-50 MG TAB PO SCH ×2 (14:02→20:26)
[2020-02-23] MEDS: traMADol HCl 50 MG TAB PO SCH ×2 (14:02→20:31)
--- NOTE | 2020-02-23 14:37 | PDOC.HOSPP ---
- Subjective Encounter Date: 02/23/20 Encounter Time: 11:00 Subjective: Patient seen in dialysis area she does look still fatigued and tired. Calcium when below 7. Talk to Dr. Wright. A CT abdomen did not show any acute abnormality. - Objective Vital Signs & Weight: Vital Signs (12 hours) Temp Pulse Resp BP BP BP Pulse Ox 02/23/20 14:09 98.3 F 90 18 174/100 H 99 02/23/20 14:03 98.3 F 88 16 174/100 H 98 02/23/20 11:57 84 158/97 H 02/23/20 08:48 97.8 F 84 18 158/97 H 98 02/23/20 03:42 98.8 F 77 18 165/90 H 100 Weight Weight 165 lb I&O: 02/22/20 02/23/20 02/24/20 06:59 06:59 06:59 Intake Total 1140 2080 680 Balance 1140 2080 680 Result Diagrams: 02/23/20 03:51 02/23/20 03:51 Hospitalist ROS - Medication Medications: Active Medications Generic Name Dose Route Start Last Admin Trade Name Freq PRN Reason Stop Dose Admin Hydrocodone Bitart/Acetaminophen 1 tab 02/14/20 11:45 02/18/20 10:23 Hydrocodone/Acetaminophen 5/325 Mg Tablet PO 1 tab Q6H PRN Administration Moderate Pain (4-6) Hydrocodone Bitart/Acetaminophen 2 tab 02/14/20 11:45 02/21/20 18:45 Hydrocodone/Acetaminophen 5/325 Mg Tablet PO 2 tab Q6H PRN Administration Severe Pain (7-10) Amlodipine Besylate 5 mg 02/18/20 21:00 02/23/20 11:57 Amlodipine 5 Mg Tab PO Not Given BID HETAL Atorvastatin Calcium 40 mg 02/14/20 21:00 02/22/20 20:42 Atorvastatin Calcium 40 Mg Tab PO 40 mg HS HETAL Administration Benzonatate 100 mg 02/14/20 15:32 02/19/20 08:21 Benzonatate 100 Mg Cap PO 100 mg Q4H PRN Administration Cough Calcitriol 1 mcg 02/22/20 09:00 02/23/20 14:01 Calcitriol 0.25 Mcg Cap PO 1 mcg DAILY HETAL Administration Calcium Carbonate 2,000 mg 02/22/20 17:00 02/23/20 14:01 Calcium Carbonate 500 Mg Chewtab PO 2,000 mg QID HETAL Administration Clonidine 0.1 mg 02/17/20 09:53 02/17/20 21:05 Clonidine 0.1 Mg Tab PO 0.1 mg Q6H PRN Administration Blood Pressure Ergocalciferol 1.25 mg 02/18/20 14:00 02/18/20 14:45 Ergocalciferol 1.25 Mg(50,000 Units) Cap PO 1.25 mg Q7D HETAL Administration Losartan Potassium 25 mg 02/17/20 09:00 02/23/20 14:02 Losartan 25 Mg Tab PO 25 mg DAILY HETAL Administration Melatonin 3 mg 02/14/20 20:48 02/22/20 22:53 Melatonin 3 Mg Tab PO 3 mg HS PRN Administration Insomnia Metoprolol Tartrate 50 mg 02/15/20 21:00 02/23/20 11:58 Metoprolol Tartrate 50 Mg Tab PO Not Given BID HETAL Ondansetron HCl 4 mg 02/14/20 11:37 02/23/20 06:24 Ondansetron Pf 4 Mg/2 Ml Vial IVP 4 mg Q8H PRN Administration Nausea/Vomiting Ondansetron HCl 4 mg 02/15/20 12:22 02/22/20 16:27 Ondansetron Odt 4 Mg Tab PO 4 mg Q6H PRN Administration Nausea/Vomiting Senna/Docusate Sodium 1 tab 02/16/20 21:00 02/23/20 14:02 Senokot S 8.6-50 Mg Tab PO Not Given BID HETAL Sodium Chloride 10 ml 02/15/20 09:00 02/23/20 14:02 Flush - Normal Saline 10 Ml Syringe IVF 10 ml Q12HR HETAL Administration Tramadol HCl 50 mg 02/19/20 21:00 02/23/20 14:02 Tramadol Hcl 50 Mg Tab PO Not Given Q12HR HETAL Vitamin B Complex/Vit C/Folic Acid 1 tab 02/15/20 09:00 02/23/20 14:02 Folic Acid/Vit B Comp W-C PO 1 tab DAILY HETAL Administration - Exam General Appearance: NAD, awake alert, ill appearing Eye: PERRL ENT: normocephalic atraumatic Neck: supple Heart: RRR Respiratory: CTAB, normal chest expansion Gastrointestinal: soft, normal bowel sounds Neurological: cranial nerve grossly intact, no focal deficits Psychiatric: A&O x 3 Hosp A/P - Plan #tertiary hyperparathyroidism; POD 2 s/p parathyroidectomy complains of diffuse bone pain; base on EMR, hasn't been taking pain medications consistently changed tramadol to scheduled continue norco PRN breakthrough pain surgery onboard #hypocalcemia-------------> corrected calcium 6.6.--- He is in the range of 6.3- 6.6. 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 -increased calcium carbonate to TID -continue calcitriol #constipation last bowel movement on Wednesday started senna, doc scheduled; bisacodyl [place] once, then PRN #ESRD HD yesterday held midway due to hypotension per patient nephrology onboard #HTN restarted metoprolol, reduced losartan to 25mg PO daily And soft diet- restricted on fibers. 4th Hypocalcemia due to lack of IV access right IJ has been placed this morning for continued calcium supplement. Her calcium this morning critically low at 5.7. -We will supplement IV calcium gluconate in addition to have p.o. until calcium is close to low normal range. Her vitamin D level is also in the low normal range.--On calcitriol 0.25 micrograms a day Adding vitamin D3 50,000 unit weekly dose until her level is in the normal range. Currently it is around 6 and it is very low and calcitriol is not enough at this point. Also checking her mag level. Her blood pressure is elevated. But patient is refusing to take take the meds today. Norvasc 5 twice a day added as well as clonidine as needed. 5th Pressure is acceptable today. She is undergoing dialysis today. Hypocalcemia -Improving. Closely follow as she is both on IV calcium gluconate and p.o. supplement. If calcium level reaches above 8 then will discontinue IV calcium supplement. -holding parameters placed in that regard. Mag in the normal range 6th Calcium level is slightly improving. No other major medical acuity at this point. Pending calcium level this afternoon. 7th Calcium still below the normal range. Talk to Dr. Hinds - plan to send her home with a calcium 2000 mg 3 times a day and calcitriol 1 mcg daily. She follows with the [facility] ' [facility].' -She does not know the name of the worm farmer. -She needs to check her calcium vitamin D level at least twice a week until this is normalized. -Plan is to send her home likely tomorrow with this information. I talked to the patient regarding the discharge plan. 8th Hypocalcemia --Calcium is improving today it is 7. Abdominal discomfort -CT abdomen pelvis ordered. -Lactic acid 0.[address] Hinds and follow w.. CT report Charge home after Dr. Hinds's clearance 9 Hungry bone syndrome Calcium when below 7. Talk to Dr. Wright. A CT abdomen did not show any acute abnormality. Ionized calcium also in the lower level. Will give another dose of vitamin D 50,000unit Calcitriol increased to 1.5 mcg daily will check mag phosphorus along with BMP panel daily.
[2020-02-23] MEDS: cloNIDine 0.1 MG TAB PO PRN (15:57)
[2020-02-23] MEDS: HYDROcodone/Acetaminophen 5/325 mg Tablet PO PRN (19:40)
[2020-02-23] MEDS: Atorvastatin Calcium 40 MG TAB PO SCH (20:30)
[2020-02-23] MEDS: Melatonin 3 MG TAB PO PRN (21:44)
[2020-02-24 05:57] LABS: #Basophils 0.1 thou/uL (0.0-0.2); #Eosinphils 1.1 thou/uL (0.0-0.7); #Lymphocytes 2.8 thou/uL (1.20-3.40); #Monocytes 0.9 thou/uL (0.11-0.59); #Neutrophils 4.4 thou/uL (1.40-6.50); %Basophils 0.6 % (0.0-1.0); %Eosinophils 11.5 % (0.0-10.0); %Lymphocytes 30.4 % (21.0-51.0); %Monocytes 9.8 % (0.0-10.0); %Neutrophils 47.7 % (42.0-75.0); Hemoglobin 9.2 g/dL (12.0-16.0); Mean Corpuscular HGB CONC 32.1 g/dL (32.0-36.0); Mean Corpuscular Hemoglobin 30.7 pg (27.0-31.0); Mean Corpuscular Volume 95.7 fL (78.0-98.0); Mean Platelet Volume 6.4 fL (7.4-10.4); Platelet Count 321 thou/uL (130-400); RBC Distribution Width 14.3 % (11.5-14.5); White Blood Cell (WBC) Count 9.3 thou/uL (4.8-10.8)
[2020-02-24 06:12] LABS: Phosphorus 4.5 mg/dL (2.3-4.7)
[2020-02-24 06:17] LABS: ALT (SGPT) Less than 7 U/L (8-55); AST (SGOT) 15 U/L (5-34); Albumin 3.5 g/dL (3.5-5.0); Alkaline Phosphatase 349 U/L (40-110); Anion Gap 16 mmol/L (10-20); BUN (Urea Nitrogen) 33 mg/dL (7.0-18.7); Bilirubin, Total 0.3 mg/dL (0.2-1.2); Calc. Creatinine Clearance 14 mL/min (70-130); Calcium 6.9 mg/dL (7.8-10.44); Carbon Dioxide 28 mmol/L (22-29); Chloride 100 mmol/L (98-107); Estimated GFR-MDRD 9; Globulin 2.9 g/dL (2.4-3.5); Glucose 94 mg/dL (70-105); Magnesium 2.1 mg/dL (1.6-2.6); Potassium 4.4 mmol/L (3.5-5.1); Protein, Total 6.4 g/dL (6.0-8.3); Sodium 140 mmol/L (136-145)
[2020-02-24] MEDS ORDERED: diphenhydrAMINE 25 MG CAP PO SCH (09:30)
[2020-02-24] MEDS: Calcium Carbonate 500 MG ChewTAB PO SCH ×4 (09:41→19:49)
[2020-02-24] MEDS: Calcitriol 0.25 MCG CAP PO SCH (09:42)
[2020-02-24] MEDS: Folic Acid/Vit B Comp W-C PO SCH (09:43)
[2020-02-24] MEDS: Amlodipine 5 MG TAB PO SCH ×2 (09:43→19:49)
[2020-02-24] MEDS: Metoprolol Tartrate 50 MG TAB PO SCH ×2 (09:43→19:49)
[2020-02-24] MEDS: Losartan 25 MG TAB PO SCH (09:43)
[2020-02-24] MEDS: traMADol HCl 50 MG TAB PO SCH ×2 (09:44→19:50)
[2020-02-24] MEDS: Senokot S 8.6-50 MG TAB PO SCH ×2 (09:46→19:50)
--- NOTE | 2020-02-24 11:17 | PRG ---
DATE OF SERVICE: 02/24/2020 SUBJECTIVE: A 44-year-old female being seen for end-stage renal disease. The patient denies any nausea, vomiting, or chest pain. OBJECTIVE: GENERAL: Patient is awake and alert. VITAL SIGNS: Pulse 75, breathing 16, and blood pressure was 130/70. HEENT: Head normocephalic and atraumatic. Eyes intact, no ulcers. Nose intact, no ulcers. Ears intact, no ulcers. Neck: Supple. No JVD. Chest: Symmetrical and clear. Cardiovascular: Shows S1 and S2, no rub, no murmur. Gastrointestinal: Abdomen is soft, bowel sounds positive. Extremities: Show no edema or ulcers. Skin: Shows no rash or petechiae. Musculoskeletal: Shows no joint swelling or stiffness. Genitourinary: Shows no Alberts or CVA tenderness. Neurologic: Motor intact. Cranial nerves intact. LABORATORY DATA: Reviewed. ASSESSMENT: 1. Stage chronic kidney disease, stable. 2. Hypertension, stable. 3. Anemia, stable. 4. Hypocalcemia. RECOMMENDATIONS: Increasing the calcitriol to 2 mcg daily. Use high calcium bath during dialysis. Job ID: [id number]
--- NOTE | 2020-02-24 14:04 | PDOC.HOSPP ---
- Subjective Encounter Date: 02/24/20 Encounter Time: 10:50 Subjective: Patient's right eye --has itchiness but exam did not reveal any conjunctiva ties are watery discharge. Vitamin D 25-hydroxy level improved from 6.7-21.6. Will give another dose of vitamin D 50,000 unit as she has significant hungry bone syndrome - Objective Vital Signs & Weight: Vital Signs (12 hours) Temp Pulse Resp BP BP BP Pulse Ox 02/24/20 11:42 97.6 F 72 14 145/85 H 100 02/24/20 09:43 81 148/84 H 02/24/20 07:57 98.3 F 81 18 148/84 H 100 02/24/20 03:37 98.0 F 71 18 137/74 96 Weight Weight 165 lb I&O: 02/23/20 02/24/20 02/25/20 06:59 06:59 06:59 Intake Total 2080 920 470 Balance 2080 920 470 Result Diagrams: 02/24/20 05:40 02/24/20 05:40 Hospitalist ROS - Medication Medications: Active Medications Generic Name Dose Route Start Last Admin Trade Name Freq PRN Reason Stop Dose Admin Amlodipine Besylate 5 mg 02/18/20 21:00 02/24/20 09:43 Amlodipine 5 Mg Tab PO 5 mg BID HETAL Administration Atorvastatin Calcium 40 mg 02/14/20 21:00 02/23/20 20:30 Atorvastatin Calcium 40 Mg Tab PO 40 mg HS HETAL Administration Benzonatate 100 mg 02/14/20 15:32 02/19/20 08:21 Benzonatate 100 Mg Cap PO 100 mg Q4H PRN Administration Cough Calcitriol 1.5 mcg 02/24/20 09:00 02/24/20 09:42 Calcitriol 0.25 Mcg Cap PO 1.5 mcg DAILY HETAL Administration Calcium Carbonate 2,000 mg 02/22/20 17:00 02/24/20 09:41 Calcium Carbonate 500 Mg Chewtab PO 2,000 mg QID HETAL Administration Clonidine 0.1 mg 02/17/20 09:53 02/23/20 15:57 Clonidine 0.1 Mg Tab PO 0.1 mg Q6H PRN Administration Blood Pressure Ergocalciferol 1.25 mg 02/18/20 14:00 02/18/20 14:45 Ergocalciferol 1.25 Mg(50,000 Units) Cap PO 1.25 mg Q7D HETAL Administration Losartan Potassium 25 mg 02/17/20 09:00 02/24/20 09:43 Losartan 25 Mg Tab PO 25 mg DAILY HETAL Administration Melatonin 3 mg 02/14/20 20:48 02/23/20 21:44 Melatonin 3 Mg Tab PO 3 mg HS PRN Administration Insomnia Metoprolol Tartrate 50 mg 02/15/20 21:00 02/24/20 09:43 Metoprolol Tartrate 50 Mg Tab PO 50 mg BID HETAL Administration Ondansetron HCl 4 mg 02/14/20 11:37 02/23/20 21:44 Ondansetron Pf 4 Mg/2 Ml Vial IVP 4 mg Q8H PRN Administration Nausea/Vomiting Ondansetron HCl 4 mg 02/15/20 12:22 02/22/20 16:27 Ondansetron Odt 4 Mg Tab PO 4 mg Q6H PRN Administration Nausea/Vomiting Senna/Docusate Sodium 1 tab 02/16/20 21:00 02/24/20 09:46 Senokot S 8.6-50 Mg Tab PO Not Given BID HETAL Sodium Chloride 10 ml 02/15/20 09:00 02/24/20 09:46 Flush - Normal Saline 10 Ml Syringe IVF 10 ml Q12HR HETAL Administration Tramadol HCl 50 mg 02/19/20 21:00 02/24/20 09:44 Tramadol Hcl 50 Mg Tab PO 50 mg Q12HR HETAL Administration Vitamin B Complex/Vit C/Folic Acid 1 tab 02/15/20 09:00 02/24/20 09:43 Folic Acid/Vit B Comp W-C PO 1 tab DAILY HETAL Administration - Exam General Appearance: NAD, awake alert Eye: PERRL Eye - other findings: Her right eye itchiness but no visual impairment or any discharge or conju ENT: normocephalic atraumatic Neck: supple Heart: RRR, normal peripheral pulses Respiratory: CTAB, normal chest expansion Gastrointestinal: soft, normal bowel sounds Neurological: cranial nerve grossly intact, no focal deficits Musculoskeletal: normal strength Psychiatric: A&O x 3 Hosp A/P - Plan #tertiary hyperparathyroidism; POD 2 s/p parathyroidectomy complains of diffuse bone pain; base on EMR, hasn't been taking pain medications consistently changed tramadol to scheduled continue norco PRN breakthrough pain surgery onboard #hypocalcemia-------------> corrected calcium 6.6.--- He is in the range of 6.3- 6.6. 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 -increased calcium carbonate to TID -continue calcitriol #constipation last bowel movement on Wednesday started senshailesh doc scheduled; bisacodyl CA once, then PRN #ESRD HD yesterday held midway due to hypotension per patient nephrology onboard #HTN restarted metoprolol, reduced losartan to 25mg PO daily And soft diet- restricted on fibers. 4th Hypocalcemia due to lack of IV access right IJ has been placed this morning for continued calcium supplement. Her calcium this morning critically low at 5.7. -We will supplement IV calcium gluconate in addition to have p.o. until calcium is close to low normal range. Her vitamin D level is also in the low normal range.--On calcitriol 0.25 micrograms a day Adding vitamin D3 50,000 unit weekly dose until her level is in the normal range. Currently it is around 6 and it is very low and calcitriol is not enough at this point. Also checking her mag level. Her blood pressure is elevated. But patient is refusing to take take the meds today. Norvasc 5 twice a day added as well as clonidine as needed. 5th Pressure is acceptable today. She is undergoing dialysis today. Hypocalcemia -Improving. Closely follow as she is both on IV calcium gluconate and p.o. supplement. If calcium level reaches above 8 then will discontinue IV calcium supplement. -holding parameters placed in that regard. Mag in the normal range 6th Calcium level is slightly improving. No other major medical acuity at this point. Pending calcium level this afternoon. 7th Calcium still below the normal range. Talk to Dr. Hinds - plan to send her home with a calcium 2000 mg 3 times a day and calcitriol 1 mcg daily. She follows with the [facility] -She does not know the name of the engraving patternmaker. -She needs to check her calcium vitamin D level at least twice a week until this is normalized. -Plan is to send her home likely tomorrow with this information. I talked to the patient regarding the discharge plan. 8th Hypocalcemia --Calcium is improving today it is 7. Abdominal discomfort -CT abdomen pelvis ordered. -Lactic acid 0.[address] Hinds and follow wMadan. CT report Charge home after Dr. Hinds's clearance 9th Hungry bone syndrome Calcium when below 7. Talk to Dr. Wright. A CT abdomen did not show any acute abnormality. Ionized calcium also in the lower level. Will give another dose of vitamin D 50,000unit Calcitriol increased to 1.5 mcg daily will check mag phosphorus along with BMP panel daily. 10th Right eye itchiness without visual impairment , will provide eyedrops for dry eyes Hungry bone syndrome with hypocalcemia and Vitamin D deficiency -We have given her intermittently vitamin D 50,000 unit will repeat the level tomorrow again if it closer to normal range then we need to reduce the dose of calcitriol When calcium closer to normal then DC home.
[2020-02-24] MEDS ORDERED: Ergocalciferol 1.25 MG(50,000 UNITS) CAP PO SCH (14:15)
[2020-02-24] MEDS ORDERED: Sevelamer Carbonate 800 MG TAB PO SCH ×2 (17:00→18:00)
[2020-02-24] MEDS ORDERED: HYDROcodone/Acetaminophen 5/325 mg Tablet PO PRN (17:31)
[2020-02-24] MEDS: HYDROcodone/Acetaminophen 5/325 mg Tablet PO PRN (17:38)
[2020-02-24] MEDS: diphenhydrAMINE 25 MG CAP PO PRN (18:03)
[2020-02-24] MEDS: Atorvastatin Calcium 40 MG TAB PO SCH (19:49)
[2020-02-24] MEDS: Melatonin 3 MG TAB PO PRN (20:54)
[2020-02-25] MEDS: HYDROcodone/Acetaminophen 5/325 mg Tablet PO PRN ×2 (03:04→08:53)
[2020-02-25] MEDS: Ondansetron ODT 4 MG TAB PO PRN (04:05)
[2020-02-25 05:39] LABS: #Basophils 0.1 thou/uL (0.0-0.2); #Eosinphils 1.1 thou/uL (0.0-0.7); #Lymphocytes 2.8 thou/uL (1.20-3.40); #Monocytes 0.8 thou/uL (0.11-0.59); #Neutrophils 5.2 thou/uL (1.40-6.50); %Basophils 0.8 % (0.0-1.0); %Eosinophils 10.8 % (0.0-10.0); %Lymphocytes 28.3 % (21.0-51.0); %Monocytes 7.8 % (0.0-10.0); %Neutrophils 52.4 % (42.0-75.0); Hemoglobin 9.2 g/dL (12.0-16.0); Mean Corpuscular HGB CONC 31.7 g/dL (32.0-36.0); Mean Corpuscular Hemoglobin 30.2 pg (27.0-31.0); Mean Corpuscular Volume 95.3 fL (78.0-98.0); Mean Platelet Volume 6.5 fL (7.4-10.4); Platelet Count 348 thou/uL (130-400); RBC Distribution Width 14.1 % (11.5-14.5); Red Blood Cell (RBC) Count 3.03 mill/uL (4.20-5.40); White Blood Cell (WBC) Count 9.8 thou/uL (4.8-10.8)
[2020-02-25 05:52] LABS: Phosphorus 4.9 mg/dL (2.3-4.7)
[2020-02-25 05:58] LABS: ALT (SGPT) 7 U/L (8-55); AST (SGOT) 16 U/L (5-34); Albumin 3.6 g/dL (3.5-5.0); Alkaline Phosphatase 351 U/L (40-110); Anion Gap 18 mmol/L (10-20); BUN (Urea Nitrogen) 50 mg/dL (7.0-18.7); Bilirubin, Total 0.3 mg/dL (0.2-1.2); Calc. Creatinine Clearance 10 mL/min (70-130); Calcium 7.1 mg/dL (7.8-10.44); Carbon Dioxide 26 mmol/L (22-29); Chloride 102 mmol/L (98-107); Estimated GFR-MDRD 6; Glucose 112 mg/dL (70-105); Magnesium 2.2 mg/dL (1.6-2.6); Protein, Total 6.6 g/dL (6.0-8.3); Sodium 141 mmol/L (136-145)
[2020-02-25] MEDS ORDERED: Loperamide HCl 2 MG CAP PO PRN (07:50)
[2020-02-25] MEDS ORDERED: Zolpidem Tartrate 5 MG TAB PO PRN (07:50)
[2020-02-25] MEDS ORDERED: Cepastat Lozenges 1 LOZ PO PRN (07:50)
[2020-02-25] MEDS: Calcitriol 0.25 MCG CAP PO SCH (08:53)
[2020-02-25] MEDS: Folic Acid/Vit B Comp W-C PO SCH (08:53)
[2020-02-25] MEDS: traMADol HCl 50 MG TAB PO SCH ×2 (08:54→20:45)
[2020-02-25] MEDS: Losartan 25 MG TAB PO SCH (08:54)
[2020-02-25] MEDS: Amlodipine 5 MG TAB PO SCH ×2 (08:54→20:25)
[2020-02-25] MEDS: Calcium Carbonate 500 MG ChewTAB PO SCH ×4 (08:54→20:24)
[2020-02-25] MEDS: Sevelamer Carbonate 800 MG TAB PO SCH ×3 (08:55→16:35)
[2020-02-25] MEDS: Ondansetron PF 4 MG/2 ML Vial IVP PRN (08:55)
[2020-02-25] MEDS: Senokot S 8.6-50 MG TAB PO SCH ×2 (08:55→20:45)
[2020-02-25] MEDS: Metoprolol Tartrate 50 MG TAB PO SCH ×2 (08:55→20:26)
[2020-02-25] MEDS: diphenhydrAMINE 25 MG CAP PO PRN (10:14)
[2020-02-25] MEDS: Artificial Tear Sol 15 ML BOT EA EYE PRN ×2 (10:16→20:26)
--- NOTE | 2020-02-25 11:26 | PDOC.HOSPP ---
- Subjective Encounter Date: 02/25/20 Encounter Time: 07:50 Subjective: Patient seen and examined. No new complaints. No overnight events, patient complaining of right upper eyelid swelling and itching - Objective Vital Signs & Weight: Vital Signs (12 hours) Temp Pulse Resp BP BP BP Pulse Ox 02/25/20 08:54 82 111/96 H 02/25/20 08:04 98.2 F 82 14 111/96 H 99 02/25/20 03:35 98.1 F 82 20 144/80 H 100 Weight Weight 165 lb I&O: 02/24/20 02/25/20 02/26/20 06:59 06:59 06:59 Intake Total 920 1550 230 Balance 920 1550 230 Result Diagrams: 02/25/20 05:25 02/25/20 05:25 Hospitalist ROS - Review of Systems Constitutional: denies: fever, chills, sweats, weakness, malaise, other Eyes: reports: eyelid inflammation. denies: pain, vision change, conjunctivae inflammation, redness, other ENT: denies: ear pain, ear discharge, nose pain, nose discharge, nose congestion, mouth pain, mouth swelling, throat pain, throat swelling, other Respiratory: denies: cough, dry, shortness of breath, hemoptysis, SOB with excertion, pleuritic pain, sputum, wheezing, other Cardiovascular: denies: chest pain, palpitations, orthopnea, paroxysmal noc. dyspnea, edema, light headedness, other Gastrointestinal: denies: nausea, vomiting, abdominal pain, diarrhea, constipation, melena, hematochezia, other Genitourinary: denies: dysuria, frequency, incontinence, hematuria, retention, other Musculoskeletal: denies: neck pain, shoulder pain, arm pain, back pain, hand pain, leg pain, foot pain, other Skin: denies: rash, lesions, maris, bruising, other - Medication Medications: Active Medications Generic Name Dose Route Start Last Admin Trade Name Freq PRN Reason Stop Dose Admin Hydrocodone Bitart/Acetaminophen 2 tab 02/24/20 17:31 02/25/20 08:53 Hydrocodone/Acetaminophen 5/325 Mg Tablet PO 2 tab Q6H PRN Administration Severe Pain (7-10) Amlodipine Besylate 5 mg 02/18/20 21:00 02/25/20 08:54 Amlodipine 5 Mg Tab PO 5 mg BID HETAL Administration Artificial Tears 1 drop 02/24/20 14:06 02/25/20 10:16 Artificial Tear Kamini 15 Ml Bot EA EYE 02/26/20 14:07 1 drop BIDPRN PRN Administration Dry Eyes Atorvastatin Calcium 40 mg 02/14/20 21:00 02/24/20 19:49 Atorvastatin Calcium 40 Mg Tab PO 40 mg HS HETAL Administration Benzonatate 100 mg 02/14/20 15:32 02/19/20 08:21 Benzonatate 100 Mg Cap PO 100 mg Q4H PRN Administration Cough Calcitriol 1.5 mcg 02/24/20 09:00 02/25/20 08:53 Calcitriol 0.25 Mcg Cap PO 1.5 mcg DAILY HETAL Administration Calcium Carbonate 2,000 mg 02/22/20 17:00 02/25/20 08:54 Calcium Carbonate 500 Mg Chewtab PO 2,000 mg QID HETAL Administration Clonidine 0.1 mg 02/17/20 09:53 02/23/20 15:57 Clonidine 0.1 Mg Tab PO 0.1 mg Q6H PRN Administration Blood Pressure Diphenhydramine HCl 25 mg 02/24/20 11:30 02/25/20 10:14 Diphenhydramine 25 Mg Cap PO 25 mg Q6H PRN Administration Itching & Insomnia Losartan Potassium 25 mg 02/17/20 09:00 02/25/20 08:54 Losartan 25 Mg Tab PO 25 mg DAILY HETAL Administration Melatonin 3 mg 02/14/20 20:48 02/24/20 20:54 Melatonin 3 Mg Tab PO 3 mg HS PRN Administration Insomnia Metoprolol Tartrate 50 mg 02/15/20 21:00 02/25/20 08:55 Metoprolol Tartrate 50 Mg Tab PO 50 mg BID HETAL Administration Ondansetron HCl 4 mg 02/14/20 11:37 02/25/20 08:55 Ondansetron Pf 4 Mg/2 Ml Vial IVP 4 mg Q8H PRN Administration Nausea/Vomiting Ondansetron HCl 4 mg 02/15/20 12:22 02/25/20 04:05 Ondansetron Odt 4 Mg Tab PO 4 mg Q6H PRN Administration Nausea/Vomiting Senna/Docusate Sodium 1 tab 02/16/20 21:00 02/25/20 08:55 Senokot S 8.6-50 Mg Tab PO Not Given BID HETAL Sevelamer Carbonate 2,400 mg 02/25/20 08:00 02/25/20 08:55 Sevelamer Carbonate 800 Mg Tab PO 2,400 mg TID-WM HETAL Administration Sodium Chloride 10 ml 02/15/20 09:00 02/25/20 08:55 Flush - Normal Saline 10 Ml Syringe IVF 10 ml Q12HR HETAL Administration Tramadol HCl 50 mg 02/19/20 21:00 02/25/20 08:54 Tramadol Hcl 50 Mg Tab PO 50 mg Q12HR HETAL Administration Vitamin B Complex/Vit C/Folic Acid 1 tab 02/15/20 09:00 02/25/20 08:53 Folic Acid/Vit B Comp W-C PO 1 tab DAILY HETAL Administration - Exam General Appearance: NAD, awake alert Eye: PERRL, anicteric sclera ENT: normocephalic atraumatic, no oropharyngeal lesions Neck: supple, symmetric, no JVD, no thyromegaly Heart: RRR, no murmur, no gallops, no rubs Respiratory: CTAB, no wheezes, no rales, no ronchi, normal chest expansion Gastrointestinal: soft, non-tender, non-distended, normal bowel sounds Extremities: no cyanosis, no clubbing Skin: normal turgor, no lesions Neurological: no new deficit Musculoskeletal: normal tone, normal strength Psychiatric: normal affect, normal behavior Hosp A/P (1) Hyperparathyroidism Code(s): E21.3 - HYPERPARATHYROIDISM, UNSPECIFIED Status: Acute (2) Hypercalcemia Code(s): E83.52 - HYPERCALCEMIA Status: Acute (3) Vitamin D deficiency Code(s): E55.9 - VITAMIN D DEFICIENCY, UNSPECIFIED Status: Acute (4) Blepharitis of right upper eyelid Code(s): H01.001 - UNSPECIFIED BLEPHARITIS RIGHT UPPER EYELID Status: Acute (5) Obesity (BMI 30.0-34.9) Code(s): E66.9 - OBESITY, UNSPECIFIED Status: Chronic (6) ESRD (end stage renal disease) on dialysis Code(s): N18.6 - END STAGE RENAL DISEASE; Z99.2 - DEPENDENCE ON RENAL DIALYSIS Status: Chronic - Plan old records reviewed/req, plan discussed w/ family I will start erythromycin ointment for her right upper eyelid blepharitis Warm compresses suggested Monitor calcium and vitamin D Hemodialysis as per nephrology Expecting discharge tomorrow
--- NOTE | 2020-02-25 12:38 | PRG ---
DATE OF SERVICE: SUBJECTIVE: A 44-year-old female being seen for end-stage renal disease. The patient denies any nausea, vomiting, or chest pain. PHYSICAL EXAMINATION: General: The patient is awake and alert. Vital Signs: Afebrile, pulse 75, breathing 16, blood pressure was 146/91. HEENT: Head normocephalic and atraumatic. Eyes intact, no ulcers. Nose intact, no ulcers. Ears intact, no ulcers. Neck: Supple. No JVD. Chest: Symmetrical and clear. Cardiovascular: Shows S1 and S2, no rub, no murmur. Gastrointestinal: Abdomen is soft, bowel sounds positive. Extremities: Show no edema or ulcers. Skin: Shows no rash or petechiae. Musculoskeletal: Shows no joint swelling or stiffness. Genitourinary: Shows no Alberts or CVA tenderness. Neurologic: Motor intact. Cranial nerves intact. LABORATORY DATA: Labs show hemoglobin is 9.2. Calcium is 7.1. ASSESSMENT AND PLAN: Chronic kidney disease stage 6, plan dialysis tomorrow. Hypertension, stable. Anemia, stable. Chronic kidney disease-mineral bone disorder. Hypocalcemia, improved. Hyperphosphatemia, controlled. Vitamin D level is still low. Job ID: [id number]
[2020-02-25] MEDS: Atorvastatin Calcium 40 MG TAB PO SCH (20:25)
[2020-02-25] MEDS: Melatonin 3 MG TAB PO PRN (21:37)
[2020-02-25] MEDS: Erythromycin Base 0.5% Oint 1 GM TUBE R EYE SCH (21:38)
[2020-02-26] MEDS: Erythromycin Base 0.5% Oint 1 GM TUBE R EYE SCH ×2 (00:14→00:20)
[2020-02-26] MEDS: HYDROcodone/Acetaminophen 5/325 mg Tablet PO PRN (01:04)
[2020-02-26] MEDS: Ondansetron PF 4 MG/2 ML Vial IVP PRN (01:04)
[2020-02-26 05:42] LABS: #Basophils 0.1 thou/uL (0.0-0.2); #Lymphocytes 2.4 thou/uL (1.20-3.40); #Monocytes 0.6 thou/uL (0.11-0.59); #Neutrophils 7.2 thou/uL (1.40-6.50); %Basophils 0.8 % (0.0-1.0); %Eosinophils 9.2 % (0.0-10.0); Hemoglobin 9.4 g/dL (12.0-16.0); Mean Corpuscular HGB CONC 33.2 g/dL (32.0-36.0); Mean Corpuscular Hemoglobin 31.1 pg (27.0-31.0); Mean Corpuscular Volume 93.7 fL (78.0-98.0); Mean Platelet Volume 6.5 fL (7.4-10.4); Platelet Count 334 thou/uL (130-400); RBC Distribution Width 13.8 % (11.5-14.5); Red Blood Cell (RBC) Count 3.01 mill/uL (4.20-5.40); White Blood Cell (WBC) Count 11.2 thou/uL (4.8-10.8)
[2020-02-26 05:57] LABS: ALT (SGPT) Less than 7 U/L (8-55); AST (SGOT) 16 U/L (5-34); Albumin 3.5 g/dL (3.5-5.0); Alkaline Phosphatase 358 U/L (40-110); Anion Gap 16 mmol/L (10-20); BUN (Urea Nitrogen) 59 mg/dL (7.0-18.7); Bilirubin, Total 0.4 mg/dL (0.2-1.2); Calc. Creatinine Clearance 9 mL/min (70-130); Calcium 7.6 mg/dL (7.8-10.44); Carbon Dioxide 26 mmol/L (22-29); Chloride 101 mmol/L (98-107); Estimated GFR-MDRD 5; Globulin 2.9 g/dL (2.4-3.5); Glucose 93 mg/dL (70-105); Magnesium 2.4 mg/dL (1.6-2.6); Potassium 5.4 mmol/L (3.5-5.1); Protein, Total 6.4 g/dL (6.0-8.3); Sodium 138 mmol/L (136-145)
[2020-02-26] MEDS ORDERED: Erythromycin Base 0.5% Oint 1 GM TUBE R EYE SCH (09:00)
--- NOTE | 2020-02-26 11:06 | PDOC.HOSPP ---
- Subjective Encounter Date: 02/26/20 Encounter Time: 07:40 Subjective: Patient seen and examined in dialysis room, no overnight event, no new complaint - Objective Vital Signs & Weight: Vital Signs (12 hours) Temp Pulse Resp BP Pulse Ox 02/26/20 07:35 98 F 86 16 167/99 H 98 02/26/20 05:15 98 F 73 18 144/81 H 99 02/26/20 00:20 98.1 F 75 18 137/81 97 Weight Weight 165 lb I&O: 02/25/20 02/26/20 02/27/20 06:59 06:59 06:59 Intake Total 1550 1300 Balance 1550 1300 Result Diagrams: 02/26/20 05:18 02/26/20 05:18 Hospitalist ROS - Review of Systems ENT: denies: ear pain, ear discharge, nose pain, nose discharge, nose conge stion, mouth pain, mouth swelling, throat pain, throat swelling, other Respiratory: denies: cough, dry, shortness of breath, hemoptysis, SOB with excertion, pleuritic pain, sputum, wheezing, other Cardiovascular: denies: chest pain, palpitations, orthopnea, paroxysmal noc. dyspnea, edema, light headedness, other Gastrointestinal: denies: nausea, vomiting, abdominal pain, diarrhea, constipation, melena, hematochezia, other Genitourinary: denies: dysuria, frequency, incontinence, hematuria, retention, other Musculoskeletal: denies: neck pain, shoulder pain, arm pain, back pain, hand pain, leg pain, foot pain, other - Medication Medications: Active Medications Generic Name Dose Route Start Last Admin Trade Name Freq PRN Reason Stop Dose Admin Hydrocodone Bitart/Acetaminophen 2 tab 02/24/20 17:31 02/26/20 01:04 Hydrocodone/Acetaminophen 5/325 Mg Tablet PO 2 tab Q6H PRN Administration Severe Pain (7-10) Amlodipine Besylate 5 mg 02/18/20 21:00 02/25/20 20:25 Amlodipine 5 Mg Tab PO 5 mg BID HETAL Administration Artificial Tears 1 drop 02/24/20 14:06 02/25/20 20:26 Artificial Tear Kamini 15 Ml Bot EA EYE 02/26/20 14:07 1 drop BIDPRN PRN Administration Dry Eyes Atorvastatin Calcium 40 mg 02/14/20 21:00 02/25/20 20:25 Atorvastatin Calcium 40 Mg Tab PO 40 mg HS HETAL Administration Benzonatate 100 mg 02/14/20 15:32 02/19/20 08:21 Benzonatate 100 Mg Cap PO 100 mg Q4H PRN Administration Cough Calcitriol 1.5 mcg 02/24/20 09:00 02/25/20 08:53 Calcitriol 0.25 Mcg Cap PO 1.5 mcg DAILY HETAL Administration Calcium Carbonate 2,000 mg 02/22/20 17:00 02/25/20 20:24 Calcium Carbonate 500 Mg Chewtab PO 2,000 mg QID HETAL Administration Clonidine 0.1 mg 02/17/20 09:53 02/23/20 15:57 Clonidine 0.1 Mg Tab PO 0.1 mg Q6H PRN Administration Blood Pressure Diphenhydramine HCl 25 mg 02/24/20 11:30 02/25/20 10:14 Diphenhydramine 25 Mg Cap PO 25 mg Q6H PRN Administration Itching & Insomnia Losartan Potassium 25 mg 02/17/20 09:00 02/25/20 08:54 Losartan 25 Mg Tab PO 25 mg DAILY HETAL Administration Melatonin 3 mg 02/14/20 20:48 02/25/20 21:37 Melatonin 3 Mg Tab PO 3 mg HS PRN Administration Insomnia Metoprolol Tartrate 50 mg 02/15/20 21:00 02/25/20 20:26 Metoprolol Tartrate 50 Mg Tab PO 50 mg BID HETAL Administration Ondansetron HCl 4 mg 02/14/20 11:37 02/26/20 01:04 Ondansetron Pf 4 Mg/2 Ml Vial IVP 4 mg Q8H PRN Administration Nausea/Vomiting Ondansetron HCl 4 mg 02/15/20 12:22 02/25/20 04:05 Ondansetron Odt 4 Mg Tab PO 4 mg Q6H PRN Administration Nausea/Vomiting Senna/Docusate Sodium 1 tab 02/16/20 21:00 02/25/20 20:45 Senokot S 8.6-50 Mg Tab PO Not Given BID HETAL Sevelamer Carbonate 2,400 mg 02/25/20 08:00 02/25/20 16:35 Sevelamer Carbonate 800 Mg Tab PO Not Given TID-WM HETAL Sodium Chloride 10 ml 02/15/20 09:00 02/25/20 21:38 Flush - Normal Saline 10 Ml Syringe IVF 10 ml Q12HR HETAL Administration Tramadol HCl 50 mg 02/19/20 21:00 02/25/20 20:45 Tramadol Hcl 50 Mg Tab PO Not Given Q12HR HETAL Vitamin B Complex/Vit C/Folic Acid 1 tab 02/15/20 09:00 02/25/20 08:53 Folic Acid/Vit B Comp W-C PO 1 tab DAILY HETAL Administration - Exam General Appearance: NAD, awake alert Eye: PERRL, anicteric sclera ENT: normocephalic atraumatic, no oropharyngeal lesions Neck: supple, symmetric, no JVD, no thyromegaly Heart: RRR, no murmur, no gallops, no rubs Respiratory: CTAB, no wheezes, no rales, no ronchi Gastrointestinal: soft, non-tender, non-distended, normal bowel sounds Extremities: no cyanosis, no clubbing, no edema Skin: normal turgor, no lesions Neurological: no focal deficits Musculoskeletal: normal tone, normal strength Psychiatric: normal affect, normal behavior Hosp A/P (1) Hyperparathyroidism Code(s): E21.3 - HYPERPARATHYROIDISM, UNSPECIFIED Status: Acute (2) Hypercalcemia Code(s): E83.52 - HYPERCALCEMIA Status: Acute (3) Vitamin D deficiency Code(s): E55.9 - VITAMIN D DEFICIENCY, UNSPECIFIED Status: Acute (4) Blepharitis of right upper eyelid Code(s): H01.001 - UNSPECIFIED BLEPHARITIS RIGHT UPPER EYELID Status: Acute (5) Obesity (BMI 30.0-34.9) Code(s): E66.9 - OBESITY, UNSPECIFIED Status: Chronic (6) ESRD (end stage renal disease) on dialysis Code(s): N18.6 - END STAGE RENAL DISEASE; Z99.2 - DEPENDENCE ON RENAL DIALYSIS Status: Chronic - Plan old records reviewed/req Patient is plan for discharge after hemodialysis, Patient will follow up with construction safety consultant as directed
--- NOTE | 2020-02-26 11:55 | PRG ---
DATE OF SERVICE: 02/26/2020 SUBJECTIVE: Patient was seen and examined at bedside and overnight events noted. Patient denies any shortness of breath or chest pain or palpitation. No history of nausea or vomiting or diarrhea or fever or chills or cramps. OBJECTIVE: GENERAL: This is a well-built female in no apparent distress. VITAL SIGNS: Temperature 99.0. Heart rate 73. Respiratory rate 18. Blood pressure 144/81. HEENT: Atraumatic, normocephalic. Oral mucosa is moist NECK: Supple. CARDIOVASCULAR: S1, S2 heard. Rate and rhythm regular. RESPIRATORY: Clear to auscultation. GASTROINTESTINAL: Abdomen is soft. MUSCULOSKELETAL: No tenderness. No edema. DERMATOLOGIC: No skin rash. NEUROLOGIC: Alert and awake and oriented X3. No focal neurologic deficits. Moving all the extremities. PSYCHIATRIC: Mood and affect normal. LABORATORY DATA: Potassium 5.4, BUN is 59, creatinine is 10.01. Calcium is 7.6. ASSESSMENT AND PLAN: 1. End-stage renal disease. Continue hemodialysis as tolerated. 2. Hyperkalemia. 3. Hypocalcemia. 4. Tertiary hyperparathyroidism, status post parathyroidectomy. 5. Hypertension. 6. Anemia of chronic disease. The patient was seen during dialysis, tolerating well. She signed against medical advice before finishing dialysis and shortened her treatment. Advised to be compliant with the treatment and continue on calcium supplements, and follow up with her primary wellness rn. Advised to have regular followup for the calcium, phosphorus, and PTH level. Job ID: [id number]
--- NOTE | 2020-02-26 12:39 | DIS ---
DATE OF ADMISSION: 02/16/2020 DATE OF DISCHARGE: 02/26/2020 DISCHARGE DISPOSITION: Home. PRIMARY DISCHARGE DIAGNOSES: 1. Status post parathyroidectomy. 2. Hypercalcemia and hyperparathyroidism. 3. Vitamin D deficiency. SECONDARY DISCHARGE DIAGNOSES: End-stage renal disease, on dialysis; obesity with body mass index of 31. PRIMARY PROCEDURE/OPERATION: Maintenance hemodialysis, central line placement, parathyroidectomy. RADIOLOGICAL INVESTIGATION: Abdomen and pelvis CT scan, left ovarian cyst. SIGNIFICANT LABORATORY DATA: Hemoglobin 9.4. Creatinine 10.01, calcium 7.6. Vitamin D 20.1. DISCHARGE MEDICATIONS: 1. Lipitor 40 mg p.o. daily. 2. Nephro-Jay Jay 1 tablet daily. 3. Renvela 800 mg 3 tablets t.i.d. 4. Losartan 25 mg daily. 5. Erythromycin topical application q.i.d. 6. Metoprolol 50 mg twice daily. 7. Amlodipine 5 mg twice daily. 8. Rocaltrol 0.5 mcg p.o. daily. 9. Tums 2000 mg t.i.d. CONTRAINDICATION: None. CODE STATUS: Full code. INPATIENT UTILIZATION REVIEW NURSE: Dr. Waylon Jang, ENT surgeon; Dr. Galvan, Nephrology. TEST RESULTS PENDING ON DISCHARGE: None. ALLERGIES: NO KNOWN DRUG ALLERGIES. DISCHARGE PLAN: Posthospital, the patient will follow up with Dr. Waylon Jang in 1 week and the patient will follow up with Nephrology. HOSPITAL COURSE: A 44-year-old female who was admitted for elective surgery for parathyroidectomy, which was done on February 14, 2020. Subsequently, the patient had hypocalcemia that was closely monitored while in the hospital. The patient was also complaining of abdominal pain, that is why CT abdomen and pelvis was done, which was unremarkable. She had poor IV access and required General Surgery consultation for central line placement. Her vitamin D was very low, that was also corrected and replaced while in the hospital. The patient was also getting calcium supplementation. The patient will continue Rocaltrol and calcium supplementation, and she will have repeat lab testing done when she follows up with ENT and Nephrology. While in hospital, she was having blepharitis, that is why we prescribed erythromycin ophthalmic ointment. Rest of medications were sent to her pharmacy. The patient will follow up with primary care physician, Nephrology, and ENT. The patient was seen and examined at bedside today. Please see my progress note from today. Job ID: [id number]
[2020-02-26] MEDS: Calcium Carbonate 500 MG ChewTAB PO SCH ×2 (14:51→15:00)
[2020-02-26] MEDS: Calcitriol 0.25 MCG CAP PO SCH (14:51)
[2020-02-26] MEDS: Sevelamer Carbonate 800 MG TAB PO SCH ×2 (14:51→14:59)
[2020-02-26] MEDS: Amlodipine 5 MG TAB PO SCH (14:51)
[2020-02-26] MEDS: Senokot S 8.6-50 MG TAB PO SCH (14:52)
[2020-02-26] MEDS: Metoprolol Tartrate 50 MG TAB PO SCH (14:52)
[2020-02-26] MEDS: Losartan 25 MG TAB PO SCH (14:52)
[2020-02-26] MEDS: Folic Acid/Vit B Comp W-C PO SCH (14:52)
[2020-02-26] MEDS: traMADol HCl 50 MG TAB PO SCH (14:53)
[2020-02-26 14:58] VITALS: BP 163/78; TEMP 97.2
== END 2020-02-26 15:35 | disposition home or self-care (01) | DRG 625 ==
LOC: SDC 05:10 → SURG B 09:47 → OBSVTOIN 02-16 11:27
PROVIDERS: ADMIT Otolaryngology Plastic Surgery within the Head & Neck; ATTEND Otolaryngology Plastic Surgery within the Head & Neck
PROC: 0GBP0ZZ Excision of Left Inferior Parathyroid Gland, Open Approach (ICD-10-PCS; principal; 2020-02-15)
PROC: 0GBL0ZZ Excision of Right Superior Parathyroid Gland, Open Approach (ICD-10-PCS; 2020-02-15)
PROC: 0GBM0ZZ Excision of Left Superior Parathyroid Gland, Open Approach (ICD-10-PCS; 2020-02-15)
PROC: 0GBN0ZZ Excision of Right Inferior Parathyroid Gland, Open Approach (ICD-10-PCS; 2020-02-15)
PROC: 4A11X4G Monitoring of Peripheral Nervous Electrical Activity, Intraoperative, External Approach (ICD-10-PCS; 2020-02-15)
PROC: 5A1D70Z Performance of Urinary Filtration, Intermittent, Less than 6 Hours Per Day (ICD-10-PCS; 2020-02-15)
PROC: 02H633Z Insertion of Infusion Device into Right Atrium, Percutaneous Approach (ICD-10-PCS; 2020-02-18)
DX: E21.2 Other hyperparathyroidism (principal); N18.6 End stage renal disease; I12.0 Hypertensive chronic kidney disease with stage 5 chronic kidney disease or end stage renal disease; E87.1 Hypo-osmolality and hyponatremia; E55.9 Vitamin D deficiency, unspecified; E66.9 Obesity, unspecified; F32.9 Major depressive disorder, single episode, unspecified; E78.5 Hyperlipidemia, unspecified; D63.1 Anemia in chronic kidney disease; H01.003 Unspecified blepharitis right eye, unspecified eyelid; K59.00 Constipation, unspecified; E87.70 Fluid overload, unspecified; Z68.31 Body mass index [BMI] 31.0-31.9, adult; Z99.2 Dependence on renal dialysis; Z79.899 Other long term (current) drug therapy
CPT/HCPCS: 36415; 36600; 71045; 74177; 80048; 80053; 82306; 82330; 83605; 83735; 83970; 84100; 84436; 84443; 84479; 84703; 85014; 85025; 87340; 88305; 88331; 90935; 93005; 93010; 94760; 96374; 96375; C1751; G0257; G0378; J0690; J1100; J2001; J2270; J2405; J2550; J2704; J3010; J3490; Q0162; Q0163; Q9967

== ENCOUNTER 2020-02-28 18:33 | Inpatient (IN) | payer OTHER ==
[~2020-02-28 18:33] MED LIST: Calcium Chloride 1 GM/10 ML Abboject SYRINGE ONE; Dextrose 50% Abboject 50 ML SYRINGE ONE; Sodium Bicarb 50 MEQ/50 ML Abboject 8.4% SYRINGE ONE
[2020-02-28] MEDS ORDERED: Ondansetron PF 4 MG/2 ML Vial ONE (19:27)
[2020-02-28] MEDS ORDERED: Fentanyl 100 MCG/2 ML VIAL ONE (19:27)
[2020-02-28] MEDS ORDERED: Lidocaine 1% (PF) 30 ML VIAL ONE ×2 (20:08→21:05)
--- NOTE | 2020-02-28 20:46 | RAD ---
PORTABLE CHEST: 02/28/20 HISTORY: Difficulty breathing. COMPARISON: 02/18/20 exam. Heart size is enlarged. There has been development of interstitial alveolar changes within the right lung. The asymmetry would suggest that this represents pneumonic type changes in the right upper and lower lung zones. No definitive infiltrate within the left lung. Surgical clips are seen in the left axilla. IMPRESSION: 1. Cardiomegaly. 2. Right sided infiltrative appearing lung changes. POS: ALLISON
[2020-02-28] MEDS ORDERED: Lidocaine 2% 10 ML INJ ONE (21:05)
[2020-02-28] MEDS ORDERED: Calcium Gluc 4.6 MEQ/10 ML (100 MG/ML) ONE ×3 (21:29→21:34)
[2020-02-28] MEDS ORDERED: Calcium Chloride 1 GM/10 ML Abboject SYRINGE ONE ×2 (21:29→21:33)
[2020-02-28] MEDS ORDERED: INSULIN REGULAR IN 0.9 % NACL 100 UNIT/100 ML BAG ONE (21:35)
[2020-02-28] MEDS ORDERED: Nitroglycerin 0.4 MG TAB 1 EACH ONE (21:35)
[2020-02-28] MEDS ORDERED: Nitroglycerin 50 MG/250 ML BOT 250 ML ONE (21:35)
[2020-02-28] MEDS ORDERED: Insulin Regular 300 UNITS/3 ML VIAL ONE (21:37)
[2020-02-28 21:40] LABS: #Basophils 0.1 thou/uL (0.0-0.2); #Eosinphils 0.1 thou/uL (0.0-0.7); #Lymphocytes 1.3 thou/uL (1.20-3.40); #Monocytes 0.1 thou/uL (0.11-0.59); #Neutrophils 10.5 thou/uL (1.40-6.50); %Basophils 0.5 % (0.0-1.0); %Eosinophils 0.7 % (0.0-10.0); %Lymphocytes 10.8 % (21.0-51.0); %Monocytes 1.2 % (0.0-10.0); %Neutrophils 86.8 % (42.0-75.0); Hemoglobin 9.9 g/dL (12.0-16.0); Mean Corpuscular HGB CONC 32.2 g/dL (32.0-36.0); Mean Corpuscular Hemoglobin 30.2 pg (27.0-31.0); Mean Corpuscular Volume 93.8 fL (78.0-98.0); Mean Platelet Volume 6.2 fL (7.4-10.4); Platelet Count 422 thou/uL (130-400); RBC Distribution Width 14.1 % (11.5-14.5); Red Blood Cell (RBC) Count 3.29 mill/uL (4.20-5.40); White Blood Cell (WBC) Count 12.1 thou/uL (4.8-10.8)
[2020-02-28 21:59] LABS: ALT (SGPT) 12 U/L (8-55); AST (SGOT) 25 U/L (5-34); Alkaline Phosphatase 407 U/L (40-110); Anion Gap 21 mmol/L (10-20); BUN (Urea Nitrogen) 61 mg/dL (7.0-18.7); Bilirubin, Total 0.4 mg/dL (0.2-1.2); Calc. Creatinine Clearance 0 mL/min (70-130); Calcium 6.6 mg/dL (7.8-10.44); Carbon Dioxide 21 mmol/L (22-29); Chloride 101 mmol/L (98-107); Estimated GFR-MDRD 5; Globulin 3.6 g/dL (2.4-3.5); Glucose 122 mg/dL (70-105); Protein, Total 7.6 g/dL (6.0-8.3); Sodium 135 mmol/L (136-145)
[2020-02-28 22:24] LABS: Potassium 7.9 mmol/L (3.5-5.1)
[2020-02-28] MEDS ORDERED: Calcium Gluconate 13.8 MEQ in Sodium Chloride 0.9% 100 ML IVPB SCH (23:00)
[2020-02-29 00:09] LABS: Anion Gap 18 mmol/L (10-20); BUN (Urea Nitrogen) 60 mg/dL (7.0-18.7); Calc. Creatinine Clearance 0 mL/min (70-130); Calcium 6.9 mg/dL (7.8-10.44); Carbon Dioxide 20 mmol/L (22-29); Chloride 106 mmol/L (98-107); Estimated GFR-MDRD 5; Glucose 139 mg/dL (70-105); Potassium 5.4 mmol/L (3.5-5.1); Sodium 139 mmol/L (136-145)
[2020-02-29] MEDS ORDERED: Cefepime 2 GM in Sodium Chloride 0.9% 100 ML IVPB SCH (00:15)
[2020-02-29] MEDS ORDERED: Vancomycin 1.5 GRAM/300 ML BAG 1.5 GM in Premix Bag 1 BAG IVPB SCH (00:15)
--- NOTE | 2020-02-29 00:44 | PDOC.HHP ---
Hospitalist HPI - History of Present Illness Generalized weakness History of Present Illness: 44-year-old woman with a history of end-stage renal disease on hemodialysis, history of hyperparathyroidism status post thyroidectomy about 10 days ago presents to the emergency department due to generalized weakness. Patient states that she was supposed to have hemodialysis today but felt very weak and could not get up and walk and therefore missed dialysis. Spouse called EMS because patient became somehow lethargic. Blood work in the ED demonstrated severe hyperkalemia with potassium up to 7.9. EKG demonstrated peaked T waves. Chest x-ray demonstrated interstitial alveolar changes within the right lung and cardiomegaly. Patient was complaining of shortness of breath. She was given hyperkalemia treatment which comprised of IV insulin, D50, calcium chloride and sodium managing carbonate. Current calcium level is 5.4. Nephrology has been contacted inpatient status for emergency hemodialysis. Noted patient calcium level was also low at 6.6. She was awake and alert and communicating meaningf ully during my assessment in the ED. she is admitted for further management. Hospitalist ROS - Review of Systems Other: Except as documented, all other systems reviewed and negative. - Medication Medications: Medication Instructions Recorded Confirmed Type Atorvastatin Calcium 40 mg PO DAILY 02/12/20 02/29/20 History Sevelamer Carbonate 3 tab PO TID 02/12/20 02/29/20 History Amlodipine [Norvasc] 5 mg PO BID 30 Days #60 tab 02/22/20 02/29/20 Rx Calcitriol [Rocaltrol] 1 mcg PO DAILY 30 Days #30 capsule 02/22/20 02/29/20 Rx Calcium Carbonate [Tums] 2,000 mg PO TID-WM 30 Days #90 tab 02/22/20 02/29/20 Rx Losartan [Cozaar] 25 mg PO DAILY 30 Days #30 tab 02/22/20 02/29/20 Rx Metoprolol Tartrate [Lopressor] 50 mg PO BID 30 Days #60 tab 02/22/20 02/29/20 Rx Erythromycin Base 0.5% Oint 1 applic EA EYE QID #15 gm 02/26/20 02/29/20 Rx Folic Acid/Vit B Complex and C 1 tablet PO DAILY 02/29/20 02/29/20 History [Bruna-Jay Jay] Hospitalist History - Past Medical History Other Medical History: End-stage renal disease on hemodialysis. Hyperparathyroidism status post parathyroidectomy, hyperlipidemia. - Past Surgical History Other Surgical History: Dialysis access surgery, parathyroidectomy. - Family History Other Family History: Reviewed and noncontributory - Social History Smoking Status: Never smoker Alcohol: reports: None Drugs: reports: none Living Situation: With Family - Exam General Appearance: NAD, awake alert Eye: PERRL, anicteric sclera ENT: normocephalic atraumatic, no oropharyngeal lesions, moist mucosa Neck: supple, symmetric, no JVD Heart: RRR, no murmur, no gallops Respiratory: CTAB, no wheezes, no rales, no ronchi Gastrointestinal: soft, non-tender, non-distended, normal bowel sounds Extremities: no cyanosis, no edema Skin: normal turgor, no rashes Neurological: cranial nerve grossly intact, no weakness, no focal deficits Musculoskeletal: normal tone, normal strength Psychiatric: normal affect, normal behavior, A&O x 3 Hospitalist Results - Labs Result Diagrams: 02/29/20 06:01 02/28/20 23:41 Lab results: WBC 12.1 thou/uL (4.8-10.8) H 02/28/20 21:30 Hgb 9.9 g/dL (12.0-16.0) L 02/28/20 21:30 Hct 30.9 % (36.0-47.0) L 02/28/20 21:30 MCV 93.8 fL (78.0-98.0) 02/28/20 21:30 Plt Count 422 thou/uL (130-400) H 02/28/20 21:30 Neutrophils % 86.8 % (42.0-75.0) H 02/28/20 21:30 Sodium 139 mmol/L (136-145) 02/28/20 23:41 Potassium 5.4 mmol/L (3.5-5.1) H 02/28/20 23:41 Chloride 106 mmol/L (98-107) 02/28/20 23:41 Carbon Dioxide 20 mmol/L (22-29) L 02/28/20 23:41 BUN 60 mg/dL (7.0-18.7) H 02/28/20 23:41 Creatinine 9.89 mg/dL (0.6-1.1) H 02/28/20 23:41 Glucose 139 mg/dL (70-105) H 02/28/20 23:41 Calcium 6.9 mg/dL (7.8-10.44) L 02/28/20 23:41 Total Bilirubin 0.4 mg/dL (0.2-1.2) 02/28/20 21:30 AST 25 U/L (5-34) 02/28/20 21:30 ALT 12 U/L (8-55) 02/28/20 21:30 Alkaline Phosphatase 407 U/L (40-110) H 02/28/20 21:30 Serum Total Protein 7.6 g/dL (6.0-8.3) 02/28/20 21:30 Albumin 4.0 g/dL (3.5-5.0) 02/28/20 21:30 - Radiology Interpretation Chest x-ray Status: report reviewed by me (Cardiomegaly, right-sided infiltrative appearing lung changes.) Hospitalist H&P A/P - Problem (1) Hyperkalemia Code(s): E87.5 - HYPERKALEMIA Status: Acute (2) Hypocalcemia Code(s): E83.51 - HYPOCALCEMIA Status: Acute (3) ESRD (end stage renal disease) on dialysis Code(s): N18.6 - END STAGE RENAL DISEASE; Z99.2 - DEPENDENCE ON RENAL DIALYSIS Status: Chronic (4) Obesity (BMI 30.0-34.9) Code(s): E66.9 - OBESITY, UNSPECIFIED Status: Chronic (5) Hypertension Code(s): I10 - ESSENTIAL (PRIMARY) HYPERTENSION Status: Acute - Plan Plan: Admit to telemetry. Nephrology consulted for emergent hemodialysis. Check potassium level after hemodialysis. Oral calcium supplementation and IV calcium as needed. Daily serum calcium check. Continue home antihypertensives.
[2020-02-29] MEDS ORDERED: Cefepime 2 GM VIAL ONE (01:08)
[2020-02-29 05:01] VITALS: BMI 30.8
[2020-02-29] MEDS ORDERED: Fentanyl 100 MCG/2 ML VIAL SLOW IVP PRN (05:08)
[2020-02-29 06:40] LABS: #Basophils 0.1 thou/uL (0.0-0.2); #Eosinphils 0.1 thou/uL (0.0-0.7); #Lymphocytes 2.1 thou/uL (1.20-3.40); #Monocytes 0.2 thou/uL (0.11-0.59); #Neutrophils 8.2 thou/uL (1.40-6.50); %Basophils 0.6 % (0.0-1.0); %Eosinophils 0.6 % (0.0-10.0); %Lymphocytes 19.3 % (21.0-51.0); %Monocytes 2.2 % (0.0-10.0); %Neutrophils 77.3 % (42.0-75.0); Hemoglobin 9.4 g/dL (12.0-16.0); Mean Corpuscular HGB CONC 32.6 g/dL (32.0-36.0); Mean Corpuscular Hemoglobin 30.3 pg (27.0-31.0); Mean Corpuscular Volume 92.9 fL (78.0-98.0); Mean Platelet Volume 6.1 fL (7.4-10.4); Platelet Count 363 thou/uL (130-400); RBC Distribution Width 14.1 % (11.5-14.5); Red Blood Cell (RBC) Count 3.11 mill/uL (4.20-5.40); White Blood Cell (WBC) Count 10.7 thou/uL (4.8-10.8)
[2020-02-29 07:14] LABS: ALT (SGPT) 11 U/L (8-55); AST (SGOT) 20 U/L (5-34); Albumin 3.8 g/dL (3.5-5.0); Alkaline Phosphatase 355 U/L (40-110); Anion Gap 18 mmol/L (10-20); BUN (Urea Nitrogen) 23 mg/dL (7.0-18.7); Bilirubin, Total 0.5 mg/dL (0.2-1.2); Calc. Creatinine Clearance 17 mL/min (70-130); Calcium 7.7 mg/dL (7.8-10.44); Carbon Dioxide 25 mmol/L (22-29); Chloride 96 mmol/L (98-107); Estimated GFR-MDRD 11; Globulin 3.1 g/dL (2.4-3.5); Glucose 129 mg/dL (70-105); Potassium 3.3 mmol/L (3.5-5.1); Protein, Total 6.9 g/dL (6.0-8.3); Sodium 136 mmol/L (136-145)
[2020-02-29] MEDS: Heparin 5,000 UNITS/ML VIAL SC SCH ×3 (09:19→20:36)
[2020-02-29] MEDS ORDERED: Naloxone HCl 0.4 mg/ml Vial ONE (10:12)
[2020-02-29] MEDS ORDERED: Dextrose 5% in Water 1,000 ML IV PRN (10:18)
[2020-02-29] MEDS ORDERED: Dextrose 50% Abboject 50 ML SYRINGE SLOW IVP PRN (10:18)
[2020-02-29] MEDS ORDERED: Insulin Regular 300 UNITS/3 ML VIAL SC PRN (10:18)
[2020-02-29] MEDS ORDERED: Dextrose 50% Abboject 50 ML SYRINGE SLOW IVP SCH (10:30)
--- NOTE | 2020-02-29 10:38 | CT ---
CT BRAIN NONCONTRAST: DATE: 02/29/2020 HISTORY: 44-year-old female with altered mental status FINDINGS: There is no evidence of acute intra-axial or extra-axial hemorrhage. There is no midline shift or any other mass effect. There is no extra-axial fluid collection. There is no evidence of obstructive hydrocephalus. Calvarium is intact. IMPRESSION: No acute intracranial findings.
[2020-02-29 10:45] LABS: Actual Bicarbonate (HCO3a) 24.4 mEq/L (22-28); Analyzer IN Cardio OR; Base Excess (BEa) 3.7 mEq/L (-2.0 to +3.0); CO2 Tension 24.5 mmHg (35.0-45.0); Carboxyhemoglobin (COHb) 0.4 gm% (0.0-3.0); Hemoglobin (Hb) 9.9 g/dL (12.0-16.0); O2 Tension (PaO2), arterial 102.1 mmHg (80.0-100.0); Puncture Site RB; pH, Arterial 7.62 (7.35-7.45)
[2020-02-29 10:45] LABS: #Eosinphils 0.1 thou/uL (0.0-0.7); #Lymphocytes 2.6 thou/uL (1.20-3.40); #Monocytes 0.6 thou/uL (0.11-0.59); #Neutrophils 8.1 thou/uL (1.40-6.50); %Basophils 0.4 % (0.0-1.0); %Lymphocytes 22.4 % (21.0-51.0); %Monocytes 5.2 % (0.0-10.0); Hemoglobin 9.1 g/dL (12.0-16.0); Mean Corpuscular HGB CONC 32.1 g/dL (32.0-36.0); Mean Corpuscular Hemoglobin 30.1 pg (27.0-31.0); Mean Corpuscular Volume 93.8 fL (78.0-98.0); Mean Platelet Volume 6.2 fL (7.4-10.4); Platelet Count 372 thou/uL (130-400); RBC Distribution Width 14.2 % (11.5-14.5); Red Blood Cell (RBC) Count 3.01 mill/uL (4.20-5.40); White Blood Cell (WBC) Count 11.5 thou/uL (4.8-10.8)
[2020-02-29 10:46] LABS: ALV-art Gradient 17.005 mmHg (0-20)
[2020-02-29 11:13] LABS: ALT (SGPT) 11 U/L (8-55); AST (SGOT) 18 U/L (5-34); Albumin 3.8 g/dL (3.5-5.0); Alkaline Phosphatase 372 U/L (40-110); Anion Gap 17 mmol/L (10-20); BUN (Urea Nitrogen) 30 mg/dL (7.0-18.7); Bilirubin, Total 0.4 mg/dL (0.2-1.2); Calc. Creatinine Clearance 13 mL/min (70-130); Calcium 7.9 mg/dL (7.8-10.44); Carbon Dioxide 29 mmol/L (22-29); Chloride 99 mmol/L (98-107); Estimated GFR-MDRD 8; Globulin 3.2 g/dL (2.4-3.5); Glucose 73 mg/dL (70-105); Potassium 3.9 mmol/L (3.5-5.1); Sodium 141 mmol/L (136-145)
[2020-02-29 11:27] LABS: Lactic Acid 1.5 mmol/L (0.5-2.2)
[2020-02-29] MEDS ORDERED: Calcitriol 0.25 MCG CAP PO SCH (12:15)
[2020-02-29] MEDS: Calcium Carbonate 500 MG ChewTAB PO SCH ×2 (14:37→20:37)
[2020-02-29] MEDS: Ondansetron PF 4 MG/2 ML Vial IVP PRN (14:37)
--- NOTE | 2020-02-29 15:13 | PDOC.HOSPP ---
- Subjective Subjective: Patient had acute episode of altered mental status, unresponsiveness this morning. Jennifer patel was called. Apparently patient had a dose of fentanyl this morning. He was slow to respond. Stat blood gas, CT head was unremarkable. Patient was given a dose of Narcan, see became responsive. It is likely due to toxic encephalopathy secondary to medication side effect. Patient is back to her baseline. - Objective Vital Signs & Weight: Vital Signs (12 hours) Temp Pulse Pulse Pulse Pulse Resp BP 02/29/20 11:13 97.6 F 93 15 02/29/20 10:42 94 87 89 196/95 H 02/29/20 07:59 98.2 F 96 14 02/29/20 03:57 BP BP BP BP Pulse Ox Pulse Ox Pulse Ox 02/29/20 11:13 150/75 H 98 02/29/20 10:42 179/112 H 171/98 H 134/74 100 100 02/29/20 07:59 141/69 H 97 02/29/20 03:57 100 Pulse Ox 02/29/20 11:13 02/29/20 10:42 100 02/29/20 07:59 02/29/20 03:57 Weight Weight 163 lb 4.8 oz Result Diagrams: 02/29/20 10:14 02/29/20 10:14 Additional Labs: Accuchecks 02/28/20 21:40 POC Glucose 109 H Radiology Reviewed by me: Yes EKG Reviewed by me: Yes Hospitalist ROS - Medication Medications: Active Medications Generic Name Dose Route Start Last Admin Trade Name Freq PRN Reason Stop Dose Admin Calcium Carbonate 1,000 mg 02/29/20 15:00 02/29/20 14:37 Calcium Carbonate 500 Mg Chewtab PO 1,000 mg TID HETAL Administration Heparin Sodium (Porcine) 5,000 units 02/29/20 09:00 02/29/20 14:37 Heparin 5,000 Units/Ml Vial SC 5,000 units TID HETAL Administration Ondansetron HCl 4 mg 02/29/20 14:19 02/29/20 14:37 Ondansetron Pf 4 Mg/2 Ml Vial IVP 4 mg Q6H PRN Administration Nausea/Vomiting - Exam Eye: PERRL ENT: normocephalic atraumatic Neck: supple Heart: RRR Respiratory: CTAB Gastrointestinal: soft Extremities: no cyanosis Skin: normal turgor Neurological: cranial nerve grossly intact Musculoskeletal: normal tone Psychiatric: normal affect Hosp A/P - Plan The patient is a pleasant 44 years old -[place] female, who has sign ificant past medical histories of end-stage renal disease, on dialysis Wednesday and Wednesday, history of hyperparathyroidism with status post thyroidectomy about 10 days ago, who presented to the ED with complaint of generalized weakness, and missed dialysis. Patient was found to have severe hyperkalemia on admission, required emergent dialysis. Acute toxic encephalopathy secondary to pain medication. --Status post reversal with Narcan. Mental status returned to baseline. Stat labs and CT head were unremarkable. Avoid narcotic medication --Monitor clinical Severe hyperkalemia on admission --Required emergent dialysis, corrected ESRD on dialysis --Continue management as per nephrology Status post recent thyroidectomy --Wound appears to be healing well. Hypertension, blood pressure stable --Resume home medications Dyslipidemia --Resume statin Obesity with BMI of 30.9 --Aggressive risk factor management is recommended.
--- NOTE | 2020-02-29 17:01 | CON ---
DATE OF CONSULTATION: 02/29/2020 CONSULTING PHYSICIAN: Dr. England. REASON FOR CONSULTATION: Hyperkalemia. REASON FOR ADMISSION: Weakness. HISTORY OF PRESENT ILLNESS: This is a 44-year-old female with history of end-stage renal disease, hyperparathyroidism, hyperlipidemia, came to the hospital with weakness and found to have hyperkalemia. The patient's potassium was 7.9, and she had an emergent dialysis, potassium is down to 3.9 now. The patient also had a code green this morning with altered mentation, most likely suspected to be secondary to pain medicines. No fever or chills. PAST MEDICAL HISTORY: Positive for end-stage renal disease, hyperparathyroidism, hyperlipidemia. PAST SURGICAL HISTORY: Dialysis access surgery, parathyroidectomy. HOME MEDICATIONS: Reviewed. ALLERGIES: NO KNOWN DRUG ALLERGIES. SOCIAL HISTORY: No smoking, alcohol, or illicit drug abuse. FAMILY HISTORY: No history of kidney disease. REVIEW OF SYSTEMS: Could not be obtained as patient was lethargic after the code green today. PHYSICAL EXAMINATION: GENERAL: This is a well-built female, no apparent distress. VITAL SIGNS: Temperature 97.3, pulse 93, respiratory rate 18, blood pressure 150/75. HEENT: Atraumatic, normocephalic. NECK: Supple. CV: S1 and S2 heard. RESPIRATORY: Clear. GI: Abdomen is soft. MUSCULOSKELETAL: No edema. DERMATOLOGIC: No skin rash. NEUROLOGIC: Lethargic. LABORATORY DATA: Potassium 3.9, BUN is 30, and creatinine is 6.5. ASSESSMENT AND PLAN: 1. End-stage renal disease. We will continue dialysis Wednesday, Wednesday, and Wednesday. Had emergent dialysis today. 2. Hyperkalemia, better. 3. Fluid overload. Limit fluid intake. 4. Hypocalcemia, better. 5. Edema, controlled. 6. Continue calcium supplements. Potassium level is better. We will continue dialysis Wednesday, Wednesday, and Wednesday. Job ID: [id number]
[2020-02-29] MEDS: Amlodipine 5 MG TAB PO SCH (20:36)
[2020-02-29] MEDS: Metoprolol Tartrate 50 MG TAB PO SCH (20:37)
[2020-02-29] MEDS: Sevelamer Carbonate 800 MG TAB PO SCH (20:37)
[2020-02-29] MEDS ORDERED: FLU VACC QS2020-21(6MOS UP)/PF 60 MCG/0.5 ML SYRINGE IM ONE (21:00)
[2020-02-29] MEDS: Acetaminophen 325 MG TAB PO PRN (23:24)
[2020-03-01] MEDS: Ondansetron PF 4 MG/2 ML Vial IVP PRN (04:15)
[2020-03-01] MEDS: Calcitriol 0.25 MCG CAP PO SCH (13:26)
[2020-03-01] MEDS: Calcium Carbonate 500 MG ChewTAB PO SCH ×3 (13:27→20:34)
[2020-03-01] MEDS: Amlodipine 5 MG TAB PO SCH ×2 (13:28→20:34)
[2020-03-01] MEDS: Sevelamer Carbonate 800 MG TAB PO SCH ×3 (13:28→20:34)
[2020-03-01] MEDS: Metoprolol Tartrate 50 MG TAB PO SCH ×2 (13:28→20:34)
[2020-03-01] MEDS: Atorvastatin Calcium 40 MG TAB PO SCH (13:29)
[2020-03-01] MEDS: Heparin 5,000 UNITS/ML VIAL SC SCH ×3 (13:29→20:35)
--- NOTE | 2020-03-01 15:29 | PRG ---
DATE OF SERVICE: SUBJECTIVE: Patient was seen and examined at bedside and overnight events noted. Patient denies any shortness of breath or chest pain or palpitation. No history of nausea or vomiting or diarrhea or fever or chills or cramps. OBJECTIVE: General: This is a well-built female, in no apparent distress. Vital Signs: Temperature 99. Heart Rate 97. Respiratory rate 18. Blood pressure 169/77. HEENT: Atraumatic, normocephalic. Oral mucosa is moist. Neck: Supple. Cardiovascular: S1, S2 heard. Rate and rhythm regular. Respiratory: Clear to auscultation. Gastrointestinal: Abdomen is soft. Musculoskeletal: No tenderness. No edema. Dermatologic: No skin rash. Neurologic: Alert and awake and oriented x3. No focal neurologic deficits. Moving all the extremities. Psychiatric: Mood and affect normal. LABORATORY DATA: No labs done today. ASSESSMENT AND PLAN: 1. End-stage renal disease. Continue dialysis as tolerated. 2. Hyperkalemia. 3. Hypocalcemia, monitor. 4. Edema. 5. History of hypertension. 6. Continue dialysis as tolerated. Job ID: [id number]
--- NOTE | 2020-03-01 16:52 | PDOC.HOSPP ---
- Subjective Subjective: She was seen examined at bedside. No acute events overnight. Patient report that she is still quite swollen, generalized weakness. Patient supposed to follow-up with her ENT doctor for postop follow-up today with Dr. Jang, will notify as pt is not able to discharge today. - Objective Vital Signs & Weight: Vital Signs (12 hours) Temp Pulse Resp BP Pulse Ox 03/01/20 16:11 98.9 F 77 14 165/78 H 100 03/01/20 13:28 97 03/01/20 13:23 98.9 F 97 18 169/77 H 100 03/01/20 07:09 98.6 F 82 16 117/58 L 96 Weight Weight 165 lb 8 oz I&O: 02/29/20 03/01/20 03/02/20 06:59 06:59 06:59 Intake Total 180 Balance 180 Result Diagrams: 02/29/20 10:14 02/29/20 10:14 Additional Labs: Accuchecks 02/29/20 10:11 POC Glucose 66 L Radiology Reviewed by me: Yes EKG Reviewed by me: Yes Hospitalist ROS - Medication Medications: Active Medications Generic Name Dose Route Start Last Admin Trade Name Freq PRN Reason Stop Dose Admin Acetaminophen 650 mg 02/29/20 10:21 02/29/20 23:24 Acetaminophen 325 Mg Tab PO 650 mg Q6H PRN Administration Pain Amlodipine Besylate 5 mg 02/29/20 21:00 03/01/20 13:28 Amlodipine 5 Mg Tab PO 5 mg BID HETAL Administration Atorvastatin Calcium 40 mg 03/01/20 09:00 03/01/20 13:29 Atorvastatin Calcium 40 Mg Tab PO 40 mg DAILY HETAL Administration Calcitriol 1 mcg 03/01/20 09:00 03/01/20 13:26 Calcitriol 0.25 Mcg Cap PO 1 mcg DAILY HETAL Administration Calcium Carbonate 1,000 mg 02/29/20 15:00 03/01/20 14:55 Calcium Carbonate 500 Mg Chewtab PO Not Given TID HETAL Heparin Sodium (Porcine) 5,000 units 02/29/20 09:00 03/01/20 14:55 Heparin 5,000 Units/Ml Vial SC Not Given TID HETAL Metoprolol Tartrate 50 mg 02/29/20 21:00 03/01/20 13:28 Metoprolol Tartrate 50 Mg Tab PO 50 mg BID HETAL Administration Ondansetron HCl 4 mg 02/29/20 14:19 03/01/20 04:15 Ondansetron Pf 4 Mg/2 Ml Vial IVP 4 mg Q6H PRN Administration Nausea/Vomiting Sevelamer Carbonate 2,400 mg 02/29/20 21:00 03/01/20 14:55 Sevelamer Carbonate 800 Mg Tab PO Not Given TID HETAL - Exam General Appearance: NAD Eye: PERRL, anicteric sclera ENT: normocephalic atraumatic Neck: supple Heart: RRR, no murmur Respiratory: rhonchi Gastrointestinal: soft, non-tender Extremities: no cyanosis, no clubbing, 1+ LE edema Skin: normal turgor Neurological: cranial nerve grossly intact Musculoskeletal: normal tone Psychiatric: normal affect, normal behavior, A&O x 3 Hosp A/P - Plan The patient is a pleasant 44 years old -[place] female, who has s ignificant past medical histories of end-stage renal disease, on dialysis Wednesday and Wednesday, history of hyperparathyroidism with status post thyroidectomy about 10 days ago, who presented to the ED with complaint of generalized weakness, and missed dialysis. Patient was found to have severe hyperkalemia on admission, required emergent dialysis. ESRD on dialysis --pt reports still sob, feels she is still vol overloaded --Continue management as per nephrology Acute toxic encephalopathy secondary to pain medication. --Status post reversal with Narcan. Mental status returned to baseline. Stat labs and CT head were unremarkable. Avoid narcotic medication --Monitor clinical. --resolved. Severe hyperkalemia on admission --Required emergent dialysis, corrected Status post recent thyroidectomy --Wound appears to be healing well. --suppose to see Dr. Jang for post op follow up, will notify him as pt is still being admitted Hypocalcemia --cont supplement Hypertension, blood pressure stable --Resume home medications Dyslipidemia --Resume statin Obesity with BMI of 30.9 --Aggressive risk factor management is recommended.
[2020-03-01] MEDS: Acetaminophen 325 MG TAB PO PRN (23:36)
[2020-03-02] MEDS: Ondansetron PF 4 MG/2 ML Vial IVP PRN (03:52)
[2020-03-02 04:12] LABS: #Basophils 0.1 thou/uL (0.0-0.2); #Eosinphils 0.8 thou/uL (0.0-0.7); #Lymphocytes 3.9 thou/uL (1.20-3.40); #Monocytes 0.9 thou/uL (0.11-0.59); #Neutrophils 5.4 thou/uL (1.40-6.50); %Eosinophils 7.6 % (0.0-10.0); %Lymphocytes 34.9 % (21.0-51.0); %Neutrophils 48.5 % (42.0-75.0); Hemoglobin 8.6 g/dL (12.0-16.0); Mean Corpuscular HGB CONC 31.2 g/dL (32.0-36.0); Mean Corpuscular Hemoglobin 29.5 pg (27.0-31.0); Mean Corpuscular Volume 94.5 fL (78.0-98.0); Mean Platelet Volume 6.5 fL (7.4-10.4); Platelet Count 370 thou/uL (130-400); RBC Distribution Width 14.2 % (11.5-14.5); Red Blood Cell (RBC) Count 2.91 mill/uL (4.20-5.40); White Blood Cell (WBC) Count 11.1 thou/uL (4.8-10.8)
[2020-03-02 04:19] LABS: Anion Gap 16 mmol/L (10-20); BUN (Urea Nitrogen) 27 mg/dL (7.0-18.7); Calc. Creatinine Clearance 14 mL/min (70-130); Calcium 7.4 mg/dL (7.8-10.44); Carbon Dioxide 31 mmol/L (22-29); Chloride 99 mmol/L (98-107); Estimated GFR-MDRD 9; Glucose 112 mg/dL (70-105); Sodium 142 mmol/L (136-145)
[2020-03-02] MEDS: Calcitriol 0.25 MCG CAP PO SCH (09:43)
[2020-03-02] MEDS: Heparin 5,000 UNITS/ML VIAL SC SCH ×3 (09:46→20:23)
[2020-03-02] MEDS: Calcium Carbonate 500 MG ChewTAB PO SCH ×3 (09:46→20:23)
[2020-03-02] MEDS: Metoprolol Tartrate 50 MG TAB PO SCH ×2 (09:46→20:21)
[2020-03-02] MEDS: Sevelamer Carbonate 800 MG TAB PO SCH ×3 (09:46→20:23)
[2020-03-02] MEDS: Atorvastatin Calcium 40 MG TAB PO SCH (09:46)
[2020-03-02] MEDS: Amlodipine 5 MG TAB PO SCH ×2 (09:47→20:21)
--- NOTE | 2020-03-02 10:52 | PRG ---
DATE OF SERVICE: 03/02/2020 OBJECTIVE: GENERAL: This is a well-built female, in no apparent distress. VITAL SIGNS: Temperature 97.3, pulse 76, respiratory rate 18, blood pressure 109/65. LABORATORY DATA: Potassium 4.0, BUN is 27, creatinine 6.4. ASSESSMENT AND PLAN: 1. End-stage renal disease. Continue dialysis Wednesday, Wednesday, and Wednesday. 2. Hyperkalemia. 3. Hypocalcemia, better. 4. Edema. 5. Hypertension. Labs are better stable. No dialysis today. We will plan for dialysis Wednesday, Wednesday, and Wednesday. Job ID: [id number]
[2020-03-02] MEDS: Acetaminophen 325 MG TAB PO PRN (11:50)
--- NOTE | 2020-03-02 15:11 | PDOC.HOSPP ---
- Subjective Encounter Date: 03/02/20 Subjective: Patient complains of shortness of breath while ambulating. - Objective Vital Signs & Weight: Vital Signs (12 hours) Temp Pulse Resp BP BP Pulse Ox 03/02/20 11:50 98.0 F 82 16 148/77 H 100 03/02/20 08:05 98.4 F 91 16 164/86 H 100 03/02/20 03:19 98.3 F 90 18 124/65 100 Weight Weight 168 lb 13.985 oz I&O: 03/01/20 03/02/20 03/03/20 06:59 06:59 06:59 Intake Total 180 360 Output Total 1 Balance 180 359 Result Diagrams: 03/02/20 03:26 03/02/20 03:26 Hospitalist ROS - Medication Medications: Active Medications Generic Name Dose Route Start Last Admin Trade Name Freq PRN Reason Stop Dose Admin Acetaminophen 650 mg 02/29/20 10:21 03/02/20 11:50 Acetaminophen 325 Mg Tab PO 650 mg Q6H PRN Administration Pain Amlodipine Besylate 5 mg 02/29/20 21:00 03/02/20 09:47 Amlodipine 5 Mg Tab PO 5 mg BID HETAL Administration Atorvastatin Calcium 40 mg 03/01/20 09:00 03/02/20 09:46 Atorvastatin Calcium 40 Mg Tab PO 40 mg DAILY HETAL Administration Calcitriol 1 mcg 03/01/20 09:00 03/02/20 09:43 Calcitriol 0.25 Mcg Cap PO 1 mcg DAILY HETAL Administration Calcium Carbonate 1,000 mg 02/29/20 15:00 03/02/20 14:16 Calcium Carbonate 500 Mg Chewtab PO 1,000 mg TID HETAL Administration Heparin Sodium (Porcine) 5,000 units 02/29/20 09:00 03/02/20 14:16 Heparin 5,000 Units/Ml Vial SC 5,000 units TID HETAL Administration Metoprolol Tartrate 50 mg 02/29/20 21:00 03/02/20 09:46 Metoprolol Tartrate 50 Mg Tab PO 50 mg BID HETAL Administration Ondansetron HCl 4 mg 02/29/20 14:19 03/02/20 03:52 Ondansetron Pf 4 Mg/2 Ml Vial IVP 4 mg Q6H PRN Administration Nausea/Vomiting Sevelamer Carbonate 2,400 mg 02/29/20 21:00 03/02/20 14:16 Sevelamer Carbonate 800 Mg Tab PO 2,400 mg TID HETAL Administration Sodium Chloride 10 ml 02/29/20 00:30 03/01/20 20:33 Flush - Normal Saline 10 Ml Syringe IVF 10 ml Q12HR PRN Administration Saline Flush - Exam General Appearance: awake alert Neck: supple, no JVD Heart: RRR Respiratory: normal chest expansion, no tachypnea Gastrointestinal: soft, non-tender, non-distended Extremities: no cyanosis Neurological: cranial nerve grossly intact, no focal deficits Hosp A/P - Plan "The patient is a pleasant 44 years old -Turk[place] female, who has significant past medical histories of end-stage renal disease, on dialysis Wednesday and Wednesday, history of hyperparathyroidism with status post thyroidectomy about 10 days ago, who presented to the ED with complaint of generalized weakness, and missed dialysis. Patient was found to have severe hyperkalemia on admission, required emergent dialysis. ESRD on dialysis --pt reports still sob, feels she is still vol overloaded --Continue management as per nephrology Acute toxic encephalopathy secondary to pain medication. --Status post reversal with Narcan. Mental status returned to baseline. Stat labs and CT head were unremarkable. Avoid narcotic medication --Monitor clinical. --resolved. Severe hyperkalemia on admission --Required emergent dialysis, corrected Status post recent thyroidectomy --Wound appears to be healing well. --suppose to see Dr. Jang for post op follow up, will notify him as pt is still being admitted Hypocalcemia --cont supplement Hypertension, blood pressure stable --Resume home medications Dyslipidemia --Resume statin Obesity with BMI of 30.9 --Aggressive risk factor management is recommended." 03/02: The patient is not hypoxic at the moment. She does have shortness of breath with ambulation. Nephrology planning to dialyze her on her regular schedule of Wednesday, Wednesday, and Wednesday. Patient stated that she does not know if she has a dialysis chair ready on Wednesday since she has arrange for that. Given that her symptoms started with missed dialysis, I do not feel comfortable to discharge her without having concrete plans for her dialysis. We will continue to monitor the patient over the weekend.
[2020-03-03] MEDS ORDERED: busPIRone HCl 10 MG TAB PO SCH (02:15)
[2020-03-03 06:16] LABS: #Basophils 0.1 thou/uL (0.0-0.2); #Lymphocytes 3.9 thou/uL (1.20-3.40); #Monocytes 0.9 thou/uL (0.11-0.59); %Basophils 0.9 % (0.0-1.0); %Lymphocytes 27.9 % (21.0-51.0); %Monocytes 6.5 % (0.0-10.0); %Neutrophils 57.7 % (42.0-75.0); Hemoglobin 8.6 g/dL (12.0-16.0); Mean Corpuscular HGB CONC 32.3 g/dL (32.0-36.0); Mean Corpuscular Hemoglobin 30.2 pg (27.0-31.0); Mean Corpuscular Volume 93.3 fL (78.0-98.0); Mean Platelet Volume 6.5 fL (7.4-10.4); Platelet Count 343 thou/uL (130-400); RBC Distribution Width 14.2 % (11.5-14.5); Red Blood Cell (RBC) Count 2.86 mill/uL (4.20-5.40); White Blood Cell (WBC) Count 13.9 thou/uL (4.8-10.8)
[2020-03-03 06:39] LABS: Anion Gap 15 mmol/L (10-20); BUN (Urea Nitrogen) 47 mg/dL (7.0-18.7); Calc. Creatinine Clearance 10 mL/min (70-130); Carbon Dioxide 28 mmol/L (22-29); Chloride 100 mmol/L (98-107); Estimated GFR-MDRD 6; Glucose 94 mg/dL (70-105); Potassium 4.1 mmol/L (3.5-5.1); Sodium 139 mmol/L (136-145)
[2020-03-03] MEDS: Atorvastatin Calcium 40 MG TAB PO SCH (08:26)
[2020-03-03] MEDS: Calcium Carbonate 500 MG ChewTAB PO SCH ×3 (08:26→19:46)
[2020-03-03] MEDS: Calcitriol 0.25 MCG CAP PO SCH (08:26)
[2020-03-03] MEDS: Amlodipine 5 MG TAB PO SCH ×2 (08:27→19:45)
[2020-03-03] MEDS: Heparin 5,000 UNITS/ML VIAL SC SCH ×3 (08:27→19:46)
[2020-03-03] MEDS: Metoprolol Tartrate 50 MG TAB PO SCH ×2 (08:27→19:45)
[2020-03-03] MEDS: Sevelamer Carbonate 800 MG TAB PO SCH ×4 (08:28→19:46)
--- NOTE | 2020-03-03 12:58 | PDOC.HOSPP ---
- Subjective Encounter Date: 03/03/20 Subjective: Denies any chest pain or significant shortness of breath. - Objective Vital Signs & Weight: Vital Signs (12 hours) Temp Pulse Resp BP BP Pulse Ox 03/03/20 11:35 99.2 F 88 18 167/77 H 100 03/03/20 08:35 99 03/03/20 08:25 98.5 F 89 18 138/72 99 03/03/20 05:55 98.6 F 91 18 149/77 H 100 Weight Weight 170 lb 10.205 oz I&O: 03/02/20 03/03/20 03/04/20 06:59 06:59 06:59 Intake Total 360 400 Output Total 1 200 Balance 359 200 Result Diagrams: 03/03/20 05:56 03/03/20 05:56 Hospitalist ROS - Medication Medications: Active Medications Generic Name Dose Route Start Last Admin Trade Name Freq PRN Reason Stop Dose Admin Acetaminophen 650 mg 02/29/20 10:21 03/02/20 11:50 Acetaminophen 325 Mg Tab PO 650 mg Q6H PRN Administration Pain Amlodipine Besylate 5 mg 02/29/20 21:00 03/03/20 08:27 Amlodipine 5 Mg Tab PO 5 mg BID HETAL Administration Atorvastatin Calcium 40 mg 03/01/20 09:00 03/03/20 08:26 Atorvastatin Calcium 40 Mg Tab PO 40 mg DAILY HETAL Administration Calcitriol 1 mcg 03/01/20 09:00 03/03/20 08:26 Calcitriol 0.25 Mcg Cap PO 1 mcg DAILY HETAL Administration Calcium Carbonate 1,000 mg 02/29/20 15:00 03/03/20 08:26 Calcium Carbonate 500 Mg Chewtab PO 1,000 mg TID HETAL Administration Heparin Sodium (Porcine) 5,000 units 02/29/20 09:00 03/03/20 08:27 Heparin 5,000 Units/Ml Vial SC 5,000 units TID HETAL Administration Metoprolol Tartrate 50 mg 02/29/20 21:00 03/03/20 08:27 Metoprolol Tartrate 50 Mg Tab PO 50 mg BID HETAL Administration Ondansetron HCl 4 mg 02/29/20 14:19 03/02/20 03:52 Ondansetron Pf 4 Mg/2 Ml Vial IVP 4 mg Q6H PRN Administration Nausea/Vomiting Sevelamer Carbonate 2,400 mg 02/29/20 21:00 03/03/20 10:23 Sevelamer Carbonate 800 Mg Tab PO 2,400 mg TID HETAL Administration Sodium Chloride 10 ml 02/29/20 00:30 03/02/20 20:21 Flush - Normal Saline 10 Ml Syringe IVF 10 ml Q12HR PRN Administration Saline Flush - Exam General Appearance: awake alert ENT: normocephalic atraumatic Neck: supple, no JVD Heart: RRR, no murmur, no gallops, no rubs Respiratory: normal chest expansion, no tachypnea Gastrointestinal: soft Neurological: cranial nerve grossly intact, no focal deficits Hosp A/P - Plan "The patient is a pleasant 44 years old -Maldivian female, who has significant past medical histories of end-stage renal disease, on dialysis Wednesday and Wednesday, history of hyperparathyroidism with status post thyroidectomy about 10 days ago, who presented to the ED with complaint of generalized weakness, and missed dialysis. Patient was found to have severe hyperkalemia on admission, required emergent dialysis. ESRD on dialysis --pt reports still sob, feels she is still vol overloaded --Continue management as per nephrology Acute toxic encephalopathy secondary to pain medication. --Status post reversal with Narcan. Mental status returned to baseline. Stat labs and CT head were unremarkable. Avoid narcotic medication --Monitor clinical. --resolved. Severe hyperkalemia on admission --Required emergent dialysis, corrected Status post recent thyroidectomy --Wound appears to be healing well. --suppose to see Dr. Jang for post op follow up, will notify him as pt is still being admitted Hypocalcemia --cont supplement Hypertension, blood pressure stable --Resume home medications Dyslipidemia --Resume statin Obesity with BMI of 30.9 --Aggressive risk factor management is recommended." 03/02: The patient is not hypoxic at the moment. She does have shortness of breath with ambulation. Nephrology planning to dialyze her on her regular schedule of Wednesday, Wednesday, and Wednesday. Patient stated that she does not know if she has a dialysis chair ready on Wednesday since she has arrange for that. Given that her symptoms started with missed dialysis, I do not feel comfortable to discharge her without having concrete plans for her dialysis. We will continue to monitor the patient over the weekend. 10/18: No signs of volume overload yet. Hemodialysis tomorrow then discharge.
--- NOTE | 2020-03-03 14:14 | PRG ---
DATE OF SERVICE: 03/03/2020 SUBJECTIVE: Patient was seen and examined at bedside and overnight events noted. Patient denies any shortness of breath or chest pain or palpitation. No history of nausea or vomiting or diarrhea or fever or chills or cramps. OBJECTIVE: GENERAL: This is a well-built female, in no apparent distress. VITAL SIGNS: Temperature . Heart Rate 88. Respiratory rate 18. Blood pressure 138/72. HEENT: Atraumatic, normocephalic. Oral mucosa is moist. NECK: Supple. CARDIOVASCULAR: S1, S2 heard. Rate and rhythm regular. RESPIRATORY: Clear to auscultation. GASTROINTESTINAL: Abdomen is soft. MUSCULOSKELETAL: No tenderness. No edema. DERMATOLOGIC: No skin rash. NEUROLOGIC: Alert and awake and oriented x3. No focal neurologic deficits. Moving all the extremities. PSYCHIATRIC: Mood and affect normal. LABORATORY DATA: Potassium 4.1, calcium 8.0, creatinine 8.9. ASSESSMENT AND PLAN: 1. End-stage renal disease. Continue dialysis as tolerated on Wednesday, Wednesday, Wednesday. 2. Edema, controlled. 3. Hyperkalemia, better. 4. Hypocalcemia. 5. Anemia of chronic disease. 6. History of hypertension. Labs are better. Continue dialysis. Monitor labs. Job ID: [id number]
[2020-03-03] MEDS: busPIRone HCl 10 MG TAB PO SCH (19:47)
[2020-03-03] MEDS ORDERED: HYDROcodone/Acetaminophen 5/325 mg Tablet PO SCH (21:45)
[2020-03-04] MEDS: Ondansetron PF 4 MG/2 ML Vial IVP PRN ×2 (04:34→21:01)
[2020-03-04 06:52] LABS: #Basophils 0.1 thou/uL (0.0-0.2); #Eosinphils 0.9 thou/uL (0.0-0.7); #Lymphocytes 3.8 thou/uL (1.20-3.40); #Monocytes 0.9 thou/uL (0.11-0.59); #Neutrophils 8.1 thou/uL (1.40-6.50); %Basophils 0.8 % (0.0-1.0); %Eosinophils 6.6 % (0.0-10.0); %Lymphocytes 27.5 % (21.0-51.0); %Monocytes 6.3 % (0.0-10.0); %Neutrophils 58.8 % (42.0-75.0); Hemoglobin 8.3 g/dL (12.0-16.0); Mean Corpuscular HGB CONC 32.9 g/dL (32.0-36.0); Mean Corpuscular Hemoglobin 31.1 pg (27.0-31.0); Mean Corpuscular Volume 94.4 fL (78.0-98.0); Mean Platelet Volume 6.8 fL (7.4-10.4); Platelet Count 371 thou/uL (130-400); RBC Distribution Width 14.3 % (11.5-14.5); Red Blood Cell (RBC) Count 2.66 mill/uL (4.20-5.40); White Blood Cell (WBC) Count 13.8 thou/uL (4.8-10.8)
[2020-03-04 07:02] LABS: Anion Gap 17 mmol/L (10-20); BUN (Urea Nitrogen) 62 mg/dL (7.0-18.7); Calc. Creatinine Clearance 9 mL/min (70-130); Carbon Dioxide 26 mmol/L (22-29); Chloride 103 mmol/L (98-107); Estimated GFR-MDRD 5; Glucose 108 mg/dL (70-105); Potassium 4.5 mmol/L (3.5-5.1); Sodium 141 mmol/L (136-145)
--- NOTE | 2020-03-04 10:46 | PRG ---
DATE OF SERVICE: 03/04/2020 SUBJECTIVE: A 44-year-old female, being seen for end-stage renal disease. The patient denied any nausea, vomiting, or chest pain. PHYSICAL EXAMINATION: General: The patient is awake and alert. Vital Signs: Afebrile, pulse 92, breathing at 16, blood pressure 122/72. HEENT: Head normocephalic and atraumatic. Eyes intact, no ulcers. Nose intact, no ulcers. Ears intact, no ulcers. Neck: Supple. No JVD. Chest: Symmetrical and clear. Cardiovascular: Shows S1 and S2, no rub, no murmur. Gastrointestinal: Abdomen is soft, bowel sounds positive. Extremities: Show no edema or ulcers. Skin: Shows no rash or petechiae. Musculoskeletal: Shows no joint swelling or stiffness. Genitourinary: Shows no Alberts or CVA tenderness. Neurologic: Motor intact. Cranial nerves intact. LABORATORY DATA: Showed hemoglobin 8.3. ASSESSMENT AND PLAN: 1. Stage 6 chronic kidney disease. Plan dialysis. 2. Hypertension, stable. 3. Anemia, stable. 4. Hypocalcemia, stable. Job ID: [id number]
[2020-03-04] MEDS: Heparin 5,000 UNITS/ML VIAL SC SCH ×3 (12:10→20:26)
[2020-03-04] MEDS: Amlodipine 5 MG TAB PO SCH ×2 (13:35→20:25)
[2020-03-04] MEDS: Sevelamer Carbonate 800 MG TAB PO SCH ×3 (13:35→20:24)
[2020-03-04] MEDS: Calcitriol 0.25 MCG CAP PO SCH (13:35)
[2020-03-04] MEDS: Metoprolol Tartrate 50 MG TAB PO SCH ×2 (13:35→20:25)
[2020-03-04] MEDS: Atorvastatin Calcium 40 MG TAB PO SCH (13:36)
[2020-03-04] MEDS: Calcium Carbonate 500 MG ChewTAB PO SCH ×4 (13:36→20:25)
[2020-03-04] MEDS: busPIRone HCl 10 MG TAB PO SCH (20:25)
[2020-03-05] MEDS ORDERED: Melatonin 3 MG TAB PO PRN (01:29)
[2020-03-05 04:34] VITALS: TEMP 98.1
[2020-03-05] MEDS: Ondansetron PF 4 MG/2 ML Vial IVP PRN (05:39)
[2020-03-05 06:00] LABS: #Basophils 0.1 thou/uL (0.0-0.2); #Eosinphils 0.9 thou/uL (0.0-0.7); #Lymphocytes 3.8 thou/uL (1.20-3.40); #Monocytes 1.1 thou/uL (0.11-0.59); #Neutrophils 7.5 thou/uL (1.40-6.50); %Eosinophils 6.6 % (0.0-10.0); %Lymphocytes 28.6 % (21.0-51.0); %Neutrophils 55.8 % (42.0-75.0); Hemoglobin 8.4 g/dL (12.0-16.0); Mean Corpuscular HGB CONC 32.1 g/dL (32.0-36.0); Mean Corpuscular Hemoglobin 30.2 pg (27.0-31.0); Mean Corpuscular Volume 94.1 fL (78.0-98.0); Mean Platelet Volume 6.6 fL (7.4-10.4); Platelet Count 413 thou/uL (130-400); RBC Distribution Width 14.8 % (11.5-14.5); Red Blood Cell (RBC) Count 2.78 mill/uL (4.20-5.40); White Blood Cell (WBC) Count 13.4 thou/uL (4.8-10.8)
[2020-03-05 06:23] LABS: Anion Gap 17 mmol/L (10-20); BUN (Urea Nitrogen) 35 mg/dL (7.0-18.7); Calc. Creatinine Clearance 12 mL/min (70-130); Calcium 8.2 mg/dL (7.8-10.44); Carbon Dioxide 27 mmol/L (22-29); Chloride 101 mmol/L (98-107); Estimated GFR-MDRD 8; Glucose 115 mg/dL (70-105); Potassium 4.7 mmol/L (3.5-5.1); Sodium 140 mmol/L (136-145)
[2020-03-05] MEDS: Calcium Carbonate 500 MG ChewTAB PO SCH (08:37)
[2020-03-05] MEDS: Calcitriol 0.25 MCG CAP PO SCH (08:37)
[2020-03-05] MEDS: Sevelamer Carbonate 800 MG TAB PO SCH (08:38)
[2020-03-05] MEDS: Atorvastatin Calcium 40 MG TAB PO SCH (08:39)
[2020-03-05] MEDS: Metoprolol Tartrate 50 MG TAB PO SCH ×2 (08:39→10:23)
[2020-03-05] MEDS: Amlodipine 5 MG TAB PO SCH (08:39)
[2020-03-05] MEDS: Heparin 5,000 UNITS/ML VIAL SC SCH (08:50)
--- NOTE | 2020-03-05 10:18 | PRG ---
DATE OF SERVICE: 03/05/2020 SUBJECTIVE: A 44-year-old female being seen for end-stage renal disease. The patient denies nausea, vomiting, or chest pain. PHYSICAL EXAMINATION: GENERAL: The patient is awake and alert. VITAL SIGNS: Afebrile, pulse 86, breathing 16, and blood pressure 109/74. HEENT: Head normocephalic and atraumatic. Eyes intact, no ulcers. Nose intact, no ulcers. Ears intact, no ulcers. NECK: Supple. No JVD. CHEST: Symmetrical and clear. CARDIOVASCULAR: Shows S1 and S2, no rub, no murmur. GASTROINTESTINAL: Abdomen is soft, bowel sounds positive. EXTREMITIES: Show no edema or ulcers. SKIN: Shows no rash or petechiae. MUSCULOSKELETAL: Shows no joint swelling or stiffness. GENITOURINARY: Shows no Alberts or CVA tenderness. NEUROLOGIC: Motor intact. Cranial nerves intact. LABORATORY DATA: Reviewed. ASSESSMENT AND PLAN: 1. Stage 6 chronic kidney disease, stable. 2. Hypertension, stable. 3. Anemia, stable. 4. Medication based on GFR appropriate. Job ID: [id number]
[2020-03-05 10:25] VITALS: BP 134/79
--- NOTE | 2020-03-05 16:06 | DIS ---
DATE OF ADMISSION: 02/29/2020 DATE OF DISCHARGE: 03/05/2020 DISCHARGE DIAGNOSES: 1. End-stage renal disease, on hemodialysis. 2. Acute metabolic encephalopathy due to pain medications reversed with Narcan. 3. Hyperkalemia. 4. Status post recent thyroidectomy. 5. Hypocalcemia. 6. Hypertension. 7. Dyslipidemia. DISCHARGE MEDICATIONS: The patient will continue her home medications with the addition of metoclopramide 5 mg q.6 hours as needed for nausea or vomiting. HISTORY OF PRESENT ILLNESS AND HOSPITAL COURSE: The patient is a 44-year-old female with past medical history of end-stage renal disease, on hemodialysis on Mondays, Wednesdays, and Fridays; history of hyperparathyroidism, status post parathyroidectomy 10 days prior to admission. The patient presented to the ER with complaints of generalized weakness after missing dialysis. She was found to be severely hyperkalemic on admission and required emergent hemodialysis. During the first 24 hours of admission, the patient had an episode of altered mental status and instability, which was reversed after administration of Narcan. This is likely due to the patient's p.o. opioids that the patient was taking at home. Those medications were placed on hold. The patient's volume status improved after receiving hemodialysis. She will continue her outpatient dialysis regimen after discharge. ENT recommended ultrasound of the neck prior to discharge, which will be performed. Outpatient followup with ENT next Wednesday. Job ID: [id number]
== END 2020-03-05 11:50 | disposition home or self-care (01) | DRG 640 ==
LOC: ERS 18:33 → 2NO 02-29 01:56 → T4-A 03-03 17:29
PROVIDERS: ADMIT Internal Medicine; ATTEND Internal Medicine
PROC: 3E02340 Introduction of Influenza Vaccine into Muscle, Percutaneous Approach (ICD-10-PCS; principal; 2020-02-29)
PROC: 06HY33Z Insertion of Infusion Device into Lower Vein, Percutaneous Approach (ICD-10-PCS; 2020-02-29)
PROC: 5A1D70Z Performance of Urinary Filtration, Intermittent, Less than 6 Hours Per Day (ICD-10-PCS; 2020-03-01)
DX: E87.5 Hyperkalemia (principal); N18.6 End stage renal disease; G92 Toxic encephalopathy; I13.2 Hypertensive heart and chronic kidney disease with heart failure and with stage 5 chronic kidney disease, or end stage renal disease; E83.51 Hypocalcemia; E78.5 Hyperlipidemia, unspecified; E66.9 Obesity, unspecified; E87.70 Fluid overload, unspecified; D63.1 Anemia in chronic kidney disease; Z99.2 Dependence on renal dialysis; Z68.31 Body mass index [BMI] 31.0-31.9, adult; T40.2X5A Adverse effect of other opioids, initial encounter; I50.9 Heart failure, unspecified
CPT/HCPCS: 36415; 36416; 36556; 70450; 71045; 80048; 80053; 82805; 83605; 84484; 85025; 87040; 90471; 90662; 90935; 93005; 96365; 96366; 96367; 96375; G0008; G0257; J0692; J1644; J1815; J2001; J2310; J2405; J3010; J3370; J3490